=== PATIENT | male | born 1990 | race American Indian/Alaskan Native ===

== ENCOUNTER 2020-03-14 23:28 | Emergency (ER) | payer MEDICARE, MEDICAID, SELFPAY | END 2020-03-14 23:53 | disposition left against medical advice (07) | PROVIDERS: Emergency Provider Emergency Medicine; PCP Internal Medicine | DX: Z48.00 Encounter for change or removal of nonsurgical wound dressing (principal) ==

== ENCOUNTER 2023-01-21 11:11 | Outpatient (REF) | payer MEDICARE, BC, MEDICAID, SELFPAY ==
--- NOTE | ~2023-01-21 | US_ITS ---
EXAMINATION: US RETROPERITONEAL LIMITED (RENAL ONLY) CLINICAL INFORMATION: Chronic kidney disease, stage III. COMPARISON: Ultrasound abdomen 01/25/2019. TECHNIQUE: Real-time imaging of the kidneys. Limited visualization due to bowel gas. FINDINGS: RIGHT KIDNEY: 11.3 x 5.5 x 6.0 cm (SAG x AP x TRV). No hydronephrosis. No renal calculi. Renal cortical thickness is normal. Limited visualization. LEFT KIDNEY: 11.6 x 6.2 x 6.4 cm (SAG x AP x TRV). No hydronephrosis. No renal calculi. Limited visualization. US/US renal BI IMPRESSION: No hydronephrosis. No renal calculi. Limited visualization.
== END 2023-01-21 11:12 | disposition home or self-care (01) ==
LOC: HO.HMGCX 11:11
PROVIDERS: PCP Internal Medicine; Visit Provider Internal Medicine Nephrology
DX: N18.31 Chronic kidney disease, stage 3a (principal)
CPT/HCPCS: 76775

== ENCOUNTER 2023-04-26 10:23 | Outpatient (AMB) | payer MEDICARE, BC, MEDICAID, SELFPAY ==
--- NOTE | 2023-04-26 12:14 | MHC.OFFWIV ---
Intake Vital Signs 04/26/23 12:23 Height 6 ft 3 in Weight 229 lb BMI 28.6 BP 130/78 Blood Pressure Location Rt brachial Position Sitting Pulse 76 Pulse Source Pulse Oximeter Temp 97.6 F Temp Source Temporal Artery Scan Pulse Oximetry (%) 96 Oxygen Delivery Method Room Air Intake Visit Reasons: EST/sore throat(lobby masked/no car) Intake Note: pt is here for sore throat Patient Tobacco Use Status: Never used Tobacco Allergies banana [Banana] Allergy (Severe, Verified 04/26/23 12:55) ANAPHYLAXIS carbamazepine [From Tegretol] Allergy (Severe, Verified 04/26/23 12:55) SHORTNESS OF BREATH legumes Allergy (Severe, Verified 04/26/23 12:55) ANAPHYLAXIS nut - unspecified [nut] Allergy (Severe, Verified 04/26/23 12:55) ANAPHYLAXIS peanut [PEANUT] Allergy (Severe, Verified 04/26/23 12:55) ANAPHYLAXIS plum [[place]] Allergy (Severe, Verified 04/26/23 12:55) ANAPHYLAXIS tree nut [TREE NUT] Allergy (Severe, Verified 04/26/23 12:55) ANAPHYLAXIS pollen extracts [POLLEN] Allergy (Mild, Verified 04/26/23 12:55) RUNNY NOSE From Seroquel Allergy (Mild, Uncoded 04/26/23 12:55) UNKNOWN From Flonase Allergy (Unknown, Uncoded 04/26/23 12:55) SHORTNESS OF BREATH From Geodon Allergy (Unknown, Uncoded 04/26/23 12:55) SHORTNESS OF BREATH Do you need a note to return to daycare/school/sports/work: Yes HPI EST/sore throat(lobby masked/no car) HPI Details Patient presents for a sick visit. Reporting symptoms of sinus congestion, sore throat and difficulty swallowing. Low-grade fever. No family member is sick. No recent travel. Patient reports symptoms of malaise and fatigue. [facility] Patient Tobacco Use Status: Never used Tobacco Physical Exam Vital Signs: Last Vital Signs Temp 97.6 F 04/26/23 12:23 Pulse 76 04/26/23 12:23 BP 130/78 04/26/23 12:23 Pulse Ox 96 04/26/23 12:23 Oxygen Delivery Method Room Air 04/26/23 12:23 BMI result Body Mass Index 28.6 Const General: cooperative and healthy appearing Nutritional Appearance: well nourished Orientation/consciousness: patient oriented x3 Limitations: no limitations HEENT Other: Tongue: White coating. Head: Yes normal to inspection Eyes General: appearance normal, both eyes and all related structures Neck Neck: Yes normal visual inspection Chest Chest palpation & inspection: normal palpation of entire chest wall Resp Effort & Inspection: normal respiratory effort Neuro General: patient oriented x3 Assessment & Plan Assessment & Plan (1) Upper respiratory tract infection: Code(s): J06.9 - Acute upper respiratory infection, unspecified Plan: Antibiotics ordered. Increase fluid intake. Tylenol for aches and pains. If symptoms worsen, follow-up here for a recheck. Patient was advised to gargle after he uses the inhalers. Coding Level of Care Code Est Pt Level 3 (91675) Diagnoses Upper respiratory tract infection J06.9
[2023-04-26 12:23] VITALS: BP 130/78; PULSE 76; TEMP 36.4; O2SAT 96; BMI 28.6
== END 2023-04-26 13:00 | disposition home or self-care (01) ==
PROVIDERS: PCP Internal Medicine; Visit Provider Internal Medicine
DX: J06.9 Acute upper respiratory infection, unspecified (principal)
CPT/HCPCS: 99213

== ENCOUNTER 2023-10-05 08:25 | Outpatient (REF) | payer BC, MEDICARE, MEDICAID, SELFPAY ==
[2023-10-05 10:36] LABS: MANUAL DIFF FLAG NO
[2023-10-05 10:41] LABS: Appearance Urine Clear; Color Urine Yellow; Glucose Urine UA Negative (Negative); Leukocyte Esterase Urine Negative (Negative); Nitrite Urine Negative (Negative); PH 6.5 (5.0-9.0); Urine Blood Negative (Negative); Urine Ketones Negative (Negative); Urine Protein Negative (Neg-Trace)
[2023-10-05 10:46] LABS: Basophils Percent Auto 0.1 % (0-2); Eosinophils Absolute Auto 0.1 X10*3/uL (0.0-0.4); Eosinophils Percent Auto 1.8 % (0-4); Imm Gran Abs Auto 0.02 X10*3/uL (0.00-0.03); Imm Gran Pct Auto 0.3 % (0.0-0.4); Mean Corpuscular HGB Conc 34.1 g/dl (31.0-36.0); Mean Corpuscular Hemoglobin 34.9 pg (27.0-33.0); Mean Corpuscular Volume 102.3 fL (80.0-98.0); Mean Platelet Volume 9.6 fL (9.4-12.4); Monocytes Absolute Auto 0.5 X10*3/uL (0.1-1.2); Monocytes Percent Auto 7.3 % (2-11); Neutrophils Absolute Auto 4.1 x10*3/uL (2.0-8.3); Neutrophils Percent Auto 61.5 % (45-73); Platelet Count 202 X10*3/uL (160-400); White Blood Count 6.7 X10*3/uL (4.8-10.8)
[2023-10-05 11:34] LABS: Blood Urea Nitrogen 12 mg/dL (9-16); Estimated Glomerular Filt Rate 47
== END 2023-10-05 08:26 | disposition home or self-care (01) ==
LOC: HO.HMGCLDS 08:25
PROVIDERS: Visit Provider Psychiatry & Neurology Psychiatry
DX: N28.9 Disorder of kidney and ureter, unspecified (principal); F31.9 Bipolar disorder, unspecified
CPT/HCPCS: 36415; 81003; 82565; 84520; 85025

== ENCOUNTER 2023-11-23 08:54 | Outpatient (REF) | payer MEDICARE, BC, MEDICAID, SELFPAY ==
[2023-11-23 11:07] LABS: MANUAL DIFF FLAG NO
[2023-11-23 11:28] LABS: Basophils Percent Auto 0.2 % (0-2); Eosinophils Absolute Auto 0.1 X10*3/uL (0.0-0.4); Eosinophils Percent Auto 1.5 % (0-4); Hematocrit 41.9 % (42.0-52.0); Hemoglobin 14.2 g/dl (14.0-18.0); Imm Gran Abs Auto 0.04 X10*3/uL (0.00-0.03); Imm Gran Pct Auto 0.5 % (0.0-0.4); Lymphocytes Absolute Auto 2.1 X10*3/uL (1.2-4.9); Lymphocytes Percent Auto 26.2 % (20-40); Mean Corpuscular HGB Conc 33.9 g/dl (31.0-36.0); Mean Corpuscular Hemoglobin 35.4 pg (27.0-33.0); Mean Corpuscular Volume 104.5 fL (80.0-98.0); Mean Platelet Volume 9.8 fL (9.4-12.4); Monocytes Absolute Auto 0.5 X10*3/uL (0.1-1.2); Monocytes Percent Auto 5.8 % (2-11); Neutrophils Absolute Auto 5.4 x10*3/uL (2.0-8.3); Neutrophils Percent Auto 65.8 % (45-73); Platelet Count 181 X10*3/uL (160-400); Red Blood Count 4.01 X10*6/uL (4.60-5.80); Red Cell Distribution Width 11.9 % (11.0-16.0); White Blood Count 8.2 X10*3/uL (4.8-10.8)
[2023-11-23 11:39] LABS: Alanine Aminotransferase 13 U/L (0-40); Albumin Level 4.2 g/dL (3.5-5.0); Alkaline Phosphatase 91 U/L (39-117); Anion Gap 13 (12-20); Aspartate Amino Transferase 14 U/L (5-37); Bilirubin Total 0.3 mg/dL (0.0-1.0); Blood Urea Nitrogen 15 mg/dL (9-16); Calcium 9.4 mg/dL (8.4-10.2); Carbon Dioxide 27 mmol/L (22-29); Chloride 104 mmol/L (96-108); Cholesterol 135 mg/dL (<200); Estimated Glomerular Filt Rate 37; Glucose Random 90 mg/dL (60-115); HDL Cholesterol 34 mg/dL (>40); LDL Cholesterol Calculated 70 mg/dL (<100); Potassium 4.1 mmol/L (3.3-5.1); Sodium 140 mmol/L (135-145); Total Protein 7.4 g/dL (6.5-8.0); Triglycerides 155 mg/dL (<150)
[2023-11-23 11:59] LABS: HIV AB/AG Nonreactive (Nonreactive); HIV Num 1 0.05 S/CO (0.00-0.99); Syphilis Screen Nonreactive (Nonreactive); ~Hepatitis C Antibody Nonreactive (Nonreactive)
[2023-11-23 12:19] LABS: Uric Acid 6.1 mg/dL (3.4-7.0)
[2023-11-23 13:10] LABS: CT PCR NOT DETECTED (Not Detect.); NG PCR NOT DETECTED (Not Detect.)
== END 2023-11-23 08:55 | disposition home or self-care (01) ==
LOC: HO.HMGCLDS 08:54
PROVIDERS: PCP Internal Medicine; Visit Provider Internal Medicine
DX: Z00.00 Encounter for general adult medical examination without abnormal findings (principal)
CPT/HCPCS: 0353U; 80053; 80061; 84439; 84443; 84550; 85025; 86780; 86803; 87389

== ENCOUNTER 2023-11-24 08:57 | Outpatient (REF) | payer BC, MEDICARE, MEDICAID, SELFPAY ==
[2023-11-24 10:28] LABS: MANUAL DIFF FLAG NO
[2023-11-24 10:33] LABS: Basophils Percent Auto 0.3 % (0-2); Eosinophils Absolute Auto 0.2 X10*3/uL (0.0-0.4); Hematocrit 40.7 % (42.0-52.0); Hemoglobin 13.7 g/dl (14.0-18.0); Imm Gran Abs Auto 0.02 X10*3/uL (0.00-0.03); Imm Gran Pct Auto 0.3 % (0.0-0.4); Lymphocytes Absolute Auto 1.9 X10*3/uL (1.2-4.9); Lymphocytes Percent Auto 23.4 % (20-40); Mean Corpuscular HGB Conc 33.7 g/dl (31.0-36.0); Mean Corpuscular Hemoglobin 34.9 pg (27.0-33.0); Mean Corpuscular Volume 103.8 fL (80.0-98.0); Mean Platelet Volume 9.9 fL (9.4-12.4); Monocytes Absolute Auto 0.5 X10*3/uL (0.1-1.2); Monocytes Percent Auto 6.8 % (2-11); Neutrophils Absolute Auto 5.4 x10*3/uL (2.0-8.3); Neutrophils Percent Auto 67.2 % (45-73); Platelet Count 175 X10*3/uL (160-400); Red Blood Count 3.92 X10*6/uL (4.60-5.80); Red Cell Distribution Width 11.9 % (11.0-16.0)
[2023-11-24 11:35] LABS: Lithium 0.51 mmol/L (0.60-1.20)
[2023-11-24 11:39] LABS: Valproate 52.4 mcg/mL (50.0-100.0)
[2023-11-24 11:49] LABS: Alanine Aminotransferase 11 U/L (0-40); Albumin Level 3.9 g/dL (3.5-5.0); Alkaline Phosphatase 87 U/L (39-117); Anion Gap 13 (12-20); Aspartate Amino Transferase 13 U/L (5-37); Bilirubin Total 0.2 mg/dL (0.0-1.0); Blood Urea Nitrogen 17 mg/dL (9-16); Calcium 9.5 mg/dL (8.4-10.2); Carbon Dioxide 27 mmol/L (22-29); Chloride 105 mmol/L (96-108); Estimated Glomerular Filt Rate 42; Glucose Random 81 mg/dL (60-115); Potassium 4.1 mmol/L (3.3-5.1); Sodium 141 mmol/L (135-145); Total Protein 6.9 g/dL (6.5-8.0)
[2023-11-24 12:12] LABS: Free T4 (Free Thyroxine) 0.87 ng/dL (0.71-1.85); Thyroid Stimulating Hormone 1.29 uIU/mL (0.32-4.0)
== END 2023-11-24 08:58 | disposition home or self-care (01) ==
LOC: HO.HMGCLDS 08:57
PROVIDERS: PCP Internal Medicine; Visit Provider Psychiatry & Neurology Psychiatry
DX: F31.9 Bipolar disorder, unspecified (principal); Z79.899 Other long term (current) drug therapy
CPT/HCPCS: 36415; 80053; 80164; 80178; 84439; 84443; 85025

== ENCOUNTER 2024-02-10 08:41 | Outpatient (REF) | payer BC, MEDICARE, MEDICAID, SELFPAY ==
[2024-02-10 10:06] LABS: MANUAL DIFF FLAG NO
[2024-02-10 10:09] LABS: Basophils Percent Auto 0.2 % (0-2); Eosinophils Absolute Auto 0.2 X10*3/uL (0.0-0.4); Eosinophils Percent Auto 2.3 % (0-4); Hematocrit 44.1 % (42.0-52.0); Hemoglobin 14.8 g/dl (14.0-18.0); Imm Gran Abs Auto 0.02 X10*3/uL (0.00-0.03); Imm Gran Pct Auto 0.3 % (0.0-0.4); Lymphocytes Absolute Auto 2.4 X10*3/uL (1.2-4.9); Mean Corpuscular HGB Conc 33.6 g/dl (31.0-36.0); Mean Corpuscular Hemoglobin 34.7 pg (27.0-33.0); Mean Corpuscular Volume 103.5 fL (80.0-98.0); Mean Platelet Volume 9.7 fL (9.4-12.4); Monocytes Absolute Auto 0.4 X10*3/uL (0.1-1.2); Monocytes Percent Auto 6.1 % (2-11); Neutrophils Absolute Auto 3.6 x10*3/uL (2.0-8.3); Neutrophils Percent Auto 55.1 % (45-73); Platelet Count 173 X10*3/uL (160-400); Red Blood Count 4.26 X10*6/uL (4.60-5.80); Red Cell Distribution Width 11.7 % (11.0-16.0); White Blood Count 6.5 X10*3/uL (4.8-10.8)
[2024-02-10 10:39] LABS: Alanine Aminotransferase 19 U/L (0-40); Albumin Level 4.4 g/dL (3.5-5.0); Alkaline Phosphatase 88 U/L (39-117); Anion Gap 12 (12-20); Aspartate Amino Transferase 17 U/L (5-37); Bilirubin Total 0.3 mg/dL (0.0-1.0); Blood Urea Nitrogen 15 mg/dL (9-16); Carbon Dioxide 26 mmol/L (22-29); Chloride 108 mmol/L (96-108); Cholesterol 136 mg/dL (<200); Estimated Glomerular Filt Rate 37; Glucose Random 93 mg/dL (60-115); HDL Cholesterol 32 mg/dL (>40); LDL Cholesterol Calculated 66 mg/dL (<100); Potassium 4.6 mmol/L (3.3-5.1); Sodium 141 mmol/L (135-145); Total Protein 7.4 g/dL (6.5-8.0); Triglycerides 191 mg/dL (<150)
[2024-02-10 10:46] LABS: Estimated Average Glucose 85 mg/dL; Hemoglobin A1c % 4.6 % (<6.0)
[2024-02-10 10:54] LABS: Lithium 0.58 mmol/L (0.60-1.20)
[2024-02-10 10:59] LABS: Valproate 43.4 mcg/mL (50.0-100.0)
[2024-02-10 11:19] LABS: Vitamin B12 498 pg/mL (200-900)
== END 2024-02-10 08:42 | disposition home or self-care (01) ==
LOC: HO.HMGCLDS 08:41
PROVIDERS: PCP Internal Medicine; Visit Provider Psychiatry & Neurology Psychiatry
DX: F31.60 Bipolar disorder, current episode mixed, unspecified (principal); Z79.899 Other long term (current) drug therapy
CPT/HCPCS: 36415; 80053; 80061; 80164; 80178; 82607; 83036; 85025

== ENCOUNTER 2024-02-20 08:38 | Outpatient (REF) | payer BC, MEDICARE, MEDICAID, SELFPAY ==
[2024-02-20 10:51] LABS: Anion Gap 12 (12-20); Blood Urea Nitrogen 17 mg/dL (9-16); Calcium 10.1 mg/dL (8.4-10.2); Carbon Dioxide 28 mmol/L (22-29); Chloride 107 mmol/L (96-108); Estimated Glomerular Filt Rate 36; Glucose Random 100 mg/dL (60-115); Potassium 4.7 mmol/L (3.3-5.1); Sodium 142 mmol/L (135-145)
[2024-02-20 13:09] LABS: Lithium 0.58 mmol/L (0.60-1.20)
[2024-02-20 13:14] LABS: Valproate 47.7 mcg/mL (50.0-100.0)
== END 2024-02-20 08:39 | disposition home or self-care (01) ==
LOC: HO.HMGCLDS 08:38
PROVIDERS: PCP Internal Medicine; Visit Provider Psychiatry & Neurology Psychiatry
DX: F31.9 Bipolar disorder, unspecified (principal); Z79.899 Other long term (current) drug therapy
CPT/HCPCS: 36415; 80048; 80164; 80178

== ENCOUNTER 2024-04-20 12:00 | Outpatient (REF) | payer BC, MEDICARE, MEDICAID, SELFPAY ==
[2024-04-20 13:04] LABS: MANUAL DIFF FLAG NO
[2024-04-20 13:09] LABS: Basophils Percent Auto 0.3 % (0-2); Eosinophils Absolute Auto 0.1 X10*3/uL (0.0-0.4); Eosinophils Percent Auto 1.5 % (0-4); Hemoglobin 13.8 g/dl (14.0-18.0); Imm Gran Abs Auto 0.03 X10*3/uL (0.00-0.03); Imm Gran Pct Auto 0.4 % (0.0-0.4); Lymphocytes Absolute Auto 2.1 X10*3/uL (1.2-4.9); Lymphocytes Percent Auto 26.8 % (20-40); Mean Corpuscular HGB Conc 33.7 g/dl (31.0-36.0); Mean Corpuscular Volume 104.1 fL (80.0-98.0); Mean Platelet Volume 9.9 fL (9.4-12.4); Monocytes Absolute Auto 0.5 X10*3/uL (0.1-1.2); Monocytes Percent Auto 6.7 % (2-11); Neutrophils Percent Auto 64.3 % (45-73); Platelet Count 157 X10*3/uL (160-400); Red Blood Count 3.94 X10*6/uL (4.60-5.80); Red Cell Distribution Width 11.8 % (11.0-16.0); White Blood Count 7.8 X10*3/uL (4.8-10.8)
[2024-04-20 13:48] LABS: Estimated Average Glucose 88 mg/dL; Hemoglobin A1C 106.6779 umol/L; Hemoglobin A1c % 4.7 % (<6.0); Total Hemoglobin (HGBA1C) 3861.0572 umol/L
[2024-04-20 13:59] LABS: Alanine Aminotransferase 27 U/L (0-40); Albumin Level 3.9 g/dL (3.5-5.0); Alkaline Phosphatase 73 U/L (39-117); Anion Gap 10 (12-20); Aspartate Amino Transferase 21 U/L (5-37); Bilirubin Total 0.2 mg/dL (0.0-1.0); Blood Urea Nitrogen 17 mg/dL (9-16); Carbon Dioxide 30 mmol/L (22-29); Chloride 104 mmol/L (96-108); Estimated Glomerular Filt Rate 41; Glucose Random 98 mg/dL (60-115); Potassium 4.2 mmol/L (3.3-5.1); Sodium 140 mmol/L (135-145); Thyroid Stimulating Hormone 0.72 uIU/mL (0.32-4.0); Total Protein 6.5 g/dL (6.5-8.0)
== END 2024-04-20 12:01 | disposition home or self-care (01) ==
LOC: HO.HMGCLDS 12:00
PROVIDERS: PCP Internal Medicine; Visit Provider Internal Medicine
DX: R00.2 Palpitations (principal); Z13.1 Encounter for screening for diabetes mellitus
CPT/HCPCS: 36415; 80053; 83036; 84443; 85025

== ENCOUNTER 2024-05-01 13:48 | Emergency (ER) | payer BC, MEDICARE, MEDICAID, SELFPAY ==
--- NOTE | 2024-05-01 | ECG_ITS ---
Test Reason : PALPATATIONS Blood Pressure : / mmHG Vent. Rate : 089 BPM Atrial Rate : 089 BPM P-R Int : 178 ms QRS Dur : 092 ms QT Int : 372 ms P-R-T Axes : 062 037 050 degrees QTc Int : 452 ms Normal sinus rhythm Nonspecific ST abnormality Abnormal ECG When compared with ECG of 24-JAN-2019 20:02, Non-specific change in ST segment in Inferior leads ST elevation now present in Lateral leads Referred By: Silvana Lester Electronically Signed By:BEENA RODRIGUEZ
--- NOTE | ~2024-05-01 | CT_ITS ---
EXAMINATION: CT SOFT TISSUE NECK WITHOUT CONTRAST CLINICAL INFORMATION: History swelling, rule out Abiodun's angina COMPARISON: None available. TECHNIQUE: Helical imaging was performed in the axial plane with generation of coronal and sagittal reformatted images. This CT examination was performed using dose optimization techniques as appropriate, variously including the following: *Automated exposure control *Adjustment of mA and/or kV according to patient size (this includes techniques or standardized protocols for targeted exams where dose is matched to indication/reason for exam; i.e. extremities or head) *Use of iterative reconstruction technique DLP: 562.47 mGy-cm FINDINGS: There is extensive edema and fat stranding in the submandibular and submental spaces bilaterally and surrounding the submandibular glands. The inflammatory changes extend to the platysma muscles bilaterally and into the subcutaneous fat. There is resultant thickening of the platysma muscles. There is also mild thickening of the digastric muscle anterior bellies, left greater than right. There is also mild prominence of the submandibular glands. There is no discrete drainable fluid collection. There are prominent level Ia lymph nodes measure up to 1.5 cm in short axis. There is prominence of the adenoid tissues partially effacing the nasopharynx. Otherwise, the oropharynx, hypopharynx, and laryngeal structures are unremarkable. The parotid and thyroid glands are unremarkable. The visualized orbits are unremarkable. Mucous retention cysts in the bilateral maxillary sinuses. The mastoid air cells are clear. The imaged portions of the brain are unremarkable. No acute osseous abnormality. No lytic or blastic osseous lesions. The visualized lungs are clear. CT/CT soft tissue neck wo IV con IMPRESSION: 1. Extensive edema and fat stranding in the submandibular and submental spaces bilaterally and surrounding the submandibular glands, extending into the now thickened platysma muscles. No discrete drainable fluid collection. Findings may represent Abiodun's angina and appropriate clinical setting. 2. Reactive level Ia lymph nodes. Electronically signed by: Saúl Feng MD 05/01/2024 05:30 PM [facility] [place] [place]
[2024-05-01 14:15] VITALS: BP 126/87; PULSE 99; RESP 18; TEMP 37; O2SAT 98; BMI 27.3
--- NOTE | 2024-05-01 14:16 | ED_ITS ---
HPI - General Adult General Chief complaint: Skin/Abscess/Foreign Body Stated complaint: Abscess in mouth Time Seen by Provider: 05/01/24 14:37 Source: patient and family (dad/ legal guardian) Mode of arrival: ambulatory Limitations: no limitations History of Present Illness ED Provider: MARY DIAZ PA-C HPI narrative: 33 year old male with past medical history significant for asthma presents to the ED today for evaluation of jaw/neck pain/swelling x 24 hours. His father is at bedside who is patient's legal guardian. Patient's father states that he noticed swelling to patient's anterior neck yesterday which significantly worsened today. He states the swelling was about 1/4 the size yesterday that it is today. His father initially just thought it was an ingrown [place] hair. Patient endorses pain on swallowing. His father also states that patient was recently seen by a dentist and noted to have multiple dental caries. Root canal and fillings were recommended however patient has not yet received these. Denies any drainage from the area. Patient was evaluated at urgent care today, sent to the ED for further evaluation due to concern for Abiodun's angina. Denies fever, chills, nausea or vomiting. Related Data Previous Rx's ?Medication ?Instructions ?Recorded azithromycin 250 mg tablet 250 mg PO ONCE 1 day #4 tabs 04/26/23 (Zithromax) Allergies Allergy/AdvReac Type Severity Reaction Status Date / Time banana [Banana] Allergy Severe ANAPHYLAXIS Verified 05/01/24 14:17 carbamazepine [From Tegretol] Allergy Severe SHORTNESS Verified 05/01/24 14:17 OF BREATH legumes Allergy Severe ANAPHYLAXIS Verified 05/01/24 14:17 nut - unspecified [nut] Allergy Severe ANAPHYLAXIS Verified 05/01/24 14:17 peanut [PEANUT] Allergy Severe ANAPHYLAXIS Verified 05/01/24 14:17 plum [[place]] Allergy Severe ANAPHYLAXIS Verified 05/01/24 14:17 tree nut [TREE NUT] Allergy Severe ANAPHYLAXIS Verified 05/01/24 14:17 pollen extracts [POLLEN] Allergy Mild RUNNY NOSE Verified 05/01/24 14:17 From Seroquel Allergy Mild UNKNOWN Uncoded 05/01/24 14:17 From Flonase Allergy Unknown SHORTNESS Uncoded 05/01/24 14:17 OF BREATH From Geodon Allergy Unknown SHORTNESS Uncoded 05/01/24 14:17 OF BREATH Review of Systems 2 Review of Systems: Constitutional: No fever, chills, fatigue, night sweats, weight changes ENT/Mouth: No ear pain, hearing loss, nasal congestion, sinus pain, rhinorrhea, sore throat, +odynophagia, +neck/jaw swelling Eyes: No eye pain, swelling, redness, vision changes, discharge Cardio: No chest pain, palpitations, FLETCHER, orthopnea, peripheral edema Pulm: No SOB, cough, sputum, wheezing, dyspnea, hemoptysis GI: No nausea, vomiting, hematemesis, abdominal pain, diarrhea, constipation, hematochezia, melena : No irregular bleeding, dysuria, frequency, urgency, hesitancy, hematuria, flank pain, urinary flow changes, urinary incontinence or retention MSK: No back pain, neck pain, joint pain, myalgias Skin: No lesions, rashes Neuro: No weakness, numbness, paresthesias, LOC, dizziness, headache Psych: No anxiety/panic, depression, SI/HI, AH/VH All other systems reviewed and are negative. [facility] Past Medical History Attestation statement: The following information was validated with the patient. Source: old records reviewed and nursing notes reviewed Social History Social History Patient Tobacco Use Status: Never used Tobacco Smoked in Last 30 Days: No Use of substances other than those prescribed or required for medical reasons: No Advance Directives: Yes Advance Directives Information Provided: Yes Advance Directives on File: No Physical Exam ED Vital Signs: Vital Signs - 24 hr 05/01/24 14:15 05/01/24 16:50 05/01/24 18:29 Temperature 98.6 F 98.3 F 98.1 F Pulse Rate 99 94 87 Respiratory Rate 18 16 16 Blood Pressure 126/87 136/78 128/72 Pulse Oximetry 98 94 94 Oxygen Delivery Method Room Air Room Air Room Air BMI result Body Mass Index 27.3 vital signs stable. afebrile. General: Well appearing, in no acute distress. Skin: Warm, dry, intact. No rashes or lesions. Head: Normocephalic, atraumatic. EENT: Hearing is intact b/l. Conjunctiva clear. PERRLA. EOM intact. Moist mucous membranes. Posterior oropharynx without erythema or edema. No tonsillar exudates. Uvula midline. Controlling secretions and speaking in complete sentences. Neck: + see photo. noted swelling to submandibular/ submental region. ttp. no palpable LAD. Cardiac: Chest wall symmetric. RRR. Lungs: airway patent. Normal respiratory effort without accessory muscle use. CTA bilaterally Back: No midline spinous or paraspinal tenderness. No step off deformity. Ext: Upper and lower extremities atraumatic, without tenderness, deformity, swelling or erythema. Full ROM throughout. Neuro: AOx3. Normal speech. Ambulating with steady gait. Psych: Appropriate mood and affect. Responds appropriately to questions. Course Course Course Narrative: This is a rapid medical exam performed by Bib Bertrand NP: Additional HPI, ROS, PE not included below will be deferred to primary provider. Patient is a 33-year-old male with history of asthma presenting to ED with father who is also legal guardian from urgent care with complaint of submandibular swelling since yesterday to r/o Abiodun's angina. Father reports swelling is significantly worse today. Denies fevers. Patient denies any drainage. Plan: labs, will need CT Reevaluation(s) Reevaluation #1: 1494 -- CBC with leukocytosis to 12.1 without left shift. No anemia. H&H stable. Chemistry without acute electrolyte abnormality requiring intervention. Acute on chronic kidney injury. BUN 22 and creatinine 2.39. This does not appear to be around patient's baseline however his father endorses chronic kidney disease from year's worth of lithium use. He is being monitored for this. 1L IVF ordered. Lactic WNL at 2. ESR WNL. CRP elevated. Blood cultures pending. He tested negative for strep throat and mono. CT soft tissue neck showing extensive edema and fat stranding in the submandibular and submental spaces bilaterally and surrounding the submandibular glands extending into the now thickened platysma muscles. There is no discrete drainable fluid collection. Concern for Abiodun's angina. There are also reactive level 1A lymph nodes. > patient has received dexamethasone, clindamycin and IV Tylenol. He is also received 1 L of IV fluids. > I reached out to ENT at [facility] who reports concern that this may be originating from patient's dentition. They do not currently have oral surgery coverage for the night and are recommending that we reach out to another facility who has coverage. > I spoke with Malini from [facility] transfer line who has accepted patient as ED to ED transfer with the accepting physician Dr. Vazquez. Patient and his father are agreeable with transfer. He is stable at this time. Medications Administered Discontinued Medications Generic Name Dose Route Start Last Admin Trade Name Freq PRN Reason Stop Dose Admin Dexamethasone Sodium Phosphate 10 mg 05/01/24 17:44 05/01/24 17:48 Dexamethasone Sod Phosphate 10 Mg/Ml Vial IVPUSH 05/01/24 17:45 10 mg ONCE ONE Administration Clindamycin Phosphate 600 mg in 50 mls @ 100 mls/hr 05/01/24 15:42 05/01/24 17:32 Cleocin IV 05/01/24 16:11 Infused ONCE ONE Infusion Acetaminophen 1,000 mg in 100 mls @ 400 mls/hr 05/01/24 15:43 05/01/24 16:13 Ofirmev IV 05/01/24 15:57 Infused ONCE ONE Infusion Sodium Chloride 1,000 mls @ 999 mls/hr 05/01/24 17:00 05/01/24 18:13 Ns IV 05/01/24 18:00 Infused .Q1H1M ROMERO Infusion Medical Decision Making Medical Decision Making MDM Narrative: 33 year old male with past medical history significant for asthma presents to the ED today for evaluation of jaw/neck pain/swelling x 24 hours. Vital signs stable. Afebrile. Not tachycardic. Not hypoxic. On exam, moist mucous membranes. multiple dental carries and poor dentition. no identifiable abscess. Posterior oropharynx without erythema or edema. No tonsillar exudates. Uvula midline. Controlling secretions and speaking in complete sentences. noted swelling to submandibular/ submental region. ttp. no palpable LAD. Airway patent. No respiratory distress. Lungs clear. 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 Differential Diagnosis Differential Diagnoses: The differential diagnosis associated with the presentation includes as above. Admission/Observation Consideration of admission/observation: Escalation of care including admission/observation considered Patient will be transferred to acute care hospital ([facility]) for ENT coverage and IV antibiotics. Consult Healthcare Provider Management of the patient was discussed with: Computer Tester ([facility] ENT / [facility] ENT) Lab Data MDM Lab Attestation statement: I reviewed the patient's lab results. as above. 05/01/24 14:42 05/01/24 14:43 Labs: Lab Results 05/01/24 05/01/24 05/01/24 Range/Units 14:42 14:43 14:44 WBC 12.1 H (4.8-10.8) X10*3/uL RBC 4.61 (4.60-5.80) X10*6/uL Hgb 16.4 (14.0-18.0) g/dl Hct 46.5 (42.0-52.0) % MCV 100.9 H (80.0-98.0) fL MCH 35.6 H (27.0-33.0) pg MCHC 35.3 (31.0-36.0) g/dl RDW 11.7 (11.0-16.0) % Plt Count 183 (160-400) X10*3/uL MPV 9.7 (9.4-12.4) fL Immature Gran % (Auto) 0.5 H (0.0-0.4) % Neut % (Auto) 73.9 H (45-73) % Lymph % (Auto) 14.4 L (20-40) % [place] % (Auto) 10.6 (2-11) % Eos % (Auto) 0.4 (0-4) % Baso % (Auto) 0.2 (0-2) % Lymph # (Auto) 1.7 (1.2-4.9) X10*3/uL [place] # (Auto) 1.3 H (0.1-1.2) X10*3/uL Eos # (Auto) 0.1 (0.0-0.4) X10*3/uL Baso # (Auto) 0.0 (0.0-0.2) X10*3/uL Abs Immat Gran (auto) 0.06 H (0.00-0.03) X10*3/uL Absolute Neuts (auto) 9.0 H (2.0-8.3) x10*3/uL Absolute Nucleated RBC 0.000 (0.0-0.012) X10*3/uL Nucleated RBC % (auto) 0.0 (0.0-0.2) /100WBC ESR 11 (0-15) MM/HR Sodium 136 (135-145) mmol/L Potassium 4.5 (3.3-5.1) mmol/L Chloride 102 (96-108) mmol/L Carbon Dioxide 24 (22-29) mmol/L Anion Gap 15 (12-20) BUN 22 H (9-16) mg/dL Creatinine 2.39 H (0.5-1.4) mg/dL Estim Creat Clear Calc 52.0 Estimated GFR 31 Random Glucose 101 (60-115) mg/dL Lactic Acid (0.5-2.0) mmol/L Calcium 10.1 D (8.4-10.2) mg/dL Total Bilirubin 0.5 (0.0-1.0) mg/dL AST 22 (5-37) U/L ALT 22 (0-40) U/L Alkaline Phosphatase 94 (39-117) U/L C-Reactive Protein 3.49 H (< or = 0.50) mg/dL Total Protein 7.9 (6.5-8.0) g/dL Albumin 4.6 (3.5-5.0) g/dL Monoscreen Negative (Negative) S. pyogenes GrpA JAMES Negative (Negative) 05/01/24 Range/Units 16:11 WBC (4.8-10.8) X10*3/uL RBC (4.60-5.80) X10*6/uL Hgb (14.0-18.0) g/dl Hct (42.0-52.0) % MCV (80.0-98.0) fL MCH (27.0-33.0) pg MCHC (31.0-36.0) g/dl RDW (11.0-16.0) % Plt Count (160-400) X10*3/uL MPV (9.4-12.4) fL Immature Gran % (Auto) (0.0-0.4) % Neut % (Auto) (45-73) % Lymph % (Auto) (20-40) % [place] % (Auto) (2-11) % Eos % (Auto) (0-4) % Baso % (Auto) (0-2) % Lymph # (Auto) (1.2-4.9) X10*3/uL [place] # (Auto) (0.1-1.2) X10*3/uL Eos # (Auto) (0.0-0.4) X10*3/uL Baso # (Auto) (0.0-0.2) X10*3/uL Abs Immat Gran (auto) (0.00-0.03) X10*3/uL Absolute Neuts (auto) (2.0-8.3) x10*3/uL Absolute Nucleated RBC (0.0-0.012) X10*3/uL Nucleated RBC % (auto) (0.0-0.2) /100WBC ESR (0-15) MM/HR Sodium (135-145) mmol/L Potassium (3.3-5.1) mmol/L Chloride (96-108) mmol/L Carbon Dioxide (22-29) mmol/L Anion Gap (12-20) BUN (9-16) mg/dL Creatinine (0.5-1.4) mg/dL Estim Creat Clear Calc Estimated GFR Random Glucose (60-115) mg/dL Lactic Acid 2.0 (0.5-2.0) mmol/L Calcium (8.4-10.2) mg/dL Total Bilirubin (0.0-1.0) mg/dL AST (5-37) U/L ALT (0-40) U/L Alkaline Phosphatase (39-117) U/L C-Reactive Protein (< or = 0.50) mg/dL Total Protein (6.5-8.0) g/dL Albumin (3.5-5.0) g/dL Monoscreen (Negative) S. pyogenes GrpA JAMES (Negative) Independent Interpretation I performed an independent interpretation of an: CT Scan Interpretation: CT soft tissue neck showing edema and fat stranding who submandibular and submental space, no fluid collection. Radiology Impression Discussion of test interpretation with radiology: I have reviewed the radiologist's reading. Radiologist Impression: EXAMINATION: CT SOFT TISSUE NECK WITHOUT CONTRAST CLINICAL INFORMATION: History swelling, rule out Abiodun's angina COMPARISON: None available. TECHNIQUE: Helical imaging was performed in the axial plane with generation of coronal and sagittal reformatted images. This CT examination was performed using dose optimization techniques as appropriate, variously including the following: *Automated exposure control *Adjustment of mA and/or kV according to patient size (this includes techniques or standardized protocols for targeted exams where dose is matched to indication/reason for exam; i.e. extremities or head) *Use of iterative reconstruction technique DLP: 562.47 mGy-cm FINDINGS: There is extensive edema and fat stranding in the submandibular and submental spaces bilaterally and surrounding the submandibular glands. The inflammatory changes extend to the platysma muscles bilaterally and into the subcutaneous fat. There is resultant thickening of the platysma muscles. There is also mild thickening of the digastric muscle anterior bellies, left greater than right. There is also mild prominence of the submandibular glands. There is no discrete drainable fluid collection. There are prominent level Ia lymph nodes measure up to 1.5 cm in short axis. There is prominence of the adenoid tissues partially effacing the nasopharynx. Otherwise, the oropharynx, hypopharynx, and laryngeal structures are unremarkable. The parotid and thyroid glands are unremarkable. The visualized orbits are unremarkable. Mucous retention cysts in the bilateral maxillary sinuses. The mastoid air cells are clear. The imaged portions of the brain are unremarkable. No acute osseous abnormality. No lytic or blastic osseous lesions. The visualized lungs are clear. CT/CT soft tissue neck wo IV con IMPRESSION: 1. Extensive edema and fat stranding in the submandibular and submental spaces bilaterally and surrounding the submandibular glands, extending into the now thickened platysma muscles. No discrete drainable fluid collection. Findings may represent Abiodun's angina and appropriate clinical setting. 2. Reactive level Ia lymph nodes. Electronically signed by: Saúl Feng MD 05/01/2024 05:30 PM [facility] Independent Historian Clinical information obtained from an independent historian. History obtained from or confirmed by: Parent (dad) External Record Review External record reviewed: Inpatient record Prescription Management I considered prescription management with: Pain Medication and Antibiotic Social Determinants Patient?s care significantly limited by Social Determinants of Health including: Other Social Determinant of Health Critical Care Time Critical Care Time Critical Care Time: Yes Total Critical Care Time: 50 Attestation: Critical care time in the amount of 50 minutes has been provided to the patient in terms of direct patient care, frequent reevaluation, consultation with ENT, review and interpretation of medical data and results, and management of potentially life-threatening conditions. This is all outside of any medical procedures. Discharge Plan Discharge Clinical Impression: Abiodun's angina, Acute kidney injury superimposed on chronic kidney disease, Leukocytosis Patient Disposition: [facility] Transfer Details: [facility] ED - Accepting Dr. Vazquez Prescriptions: No Action azithromycin [Zithromax] 250 mg tablet 250 mg PO ONCE 1 Days Qty: 4 0RF Print Language: Fijian
[2024-05-01 14:49] LABS: MANUAL DIFF FLAG NO
[2024-05-01 15:02] LABS: Basophils Percent Auto 0.2 % (0-2); Eosinophils Absolute Auto 0.1 X10*3/uL (0.0-0.4); Eosinophils Percent Auto 0.4 % (0-4); Hematocrit 46.5 % (42.0-52.0); Hemoglobin 16.4 g/dl (14.0-18.0); Imm Gran Abs Auto 0.06 X10*3/uL (0.00-0.03); Imm Gran Pct Auto 0.5 % (0.0-0.4); Lymphocytes Absolute Auto 1.7 X10*3/uL (1.2-4.9); Lymphocytes Percent Auto 14.4 % (20-40); Mean Corpuscular HGB Conc 35.3 g/dl (31.0-36.0); Mean Corpuscular Hemoglobin 35.6 pg (27.0-33.0); Mean Corpuscular Volume 100.9 fL (80.0-98.0); Mean Platelet Volume 9.7 fL (9.4-12.4); Monocytes Absolute Auto 1.3 X10*3/uL (0.1-1.2); Monocytes Percent Auto 10.6 % (2-11); Neutrophils Percent Auto 73.9 % (45-73); Platelet Count 183 X10*3/uL (160-400); Red Blood Count 4.61 X10*6/uL (4.60-5.80); Red Cell Distribution Width 11.7 % (11.0-16.0); White Blood Count 12.1 X10*3/uL (4.8-10.8)
[2024-05-01 15:08] LABS: C Reactive Protein 3.49 mg/dL (< or = 0.50)
[2024-05-01 15:12] LABS: IDNOW Serial# 08D9AD1C; Strep A Nucleic Acid Negative (Negative)
[2024-05-01 15:13] LABS: Alanine Aminotransferase 22 U/L (0-40); Albumin Level 4.6 g/dL (3.5-5.0); Alkaline Phosphatase 94 U/L (39-117); Anion Gap 15 (12-20); Aspartate Amino Transferase 22 U/L (5-37); Bilirubin Total 0.5 mg/dL (0.0-1.0); Blood Urea Nitrogen 22 mg/dL (9-16); Calcium 10.1 mg/dL (8.4-10.2); Carbon Dioxide 24 mmol/L (22-29); Chloride 102 mmol/L (96-108); Estimated Glomerular Filt Rate 31; Glucose Random 101 mg/dL (60-115); Potassium 4.5 mmol/L (3.3-5.1); Sodium 136 mmol/L (135-145); Total Protein 7.9 g/dL (6.5-8.0)
[2024-05-01 15:16] LABS: Monotest Negative (Negative)
[2024-05-01 15:41] LABS: Erythrocyte Sedimentation Rate 11 MM/HR (0-15)
[2024-05-01] MEDS: Acetaminophen 1,000 MG/100 ML PIGGYBACK 400 MG IV (15:58)
[2024-05-01 16:50] VITALS: BP 136/78; PULSE 94; RESP 16; TEMP 36.8; O2SAT 94
[2024-05-01] MEDS: Clindamycin Phosphate/D5W 600 MG/50 ML PIGGYBACK 100 MG IV (17:02)
[2024-05-01] MEDS: 0.9 % Sodium Chloride 1,000 ML 999 ML IV (17:02)
[2024-05-01] MEDS: dexAMETHasone sod phosphate 10 MG/ML VIAL IVPUSH (17:48)
[2024-05-01 18:29] VITALS: BP 128/72; PULSE 87; RESP 16; TEMP 36.7; O2SAT 94
--- NOTE | 2024-05-01 18:29 | PC.NURSE ---
pt accepted by [facility]- awaiting transport
--- NOTE | 2024-05-01 19:35 | PC.NURSE ---
nurse to nurse report to MARCUS Escobar at [facility]. pt transported via [facility]
[2024-05-01 21:02] VITALS: BP 128/72; PULSE 87; RESP 16; TEMP 36.7; O2SAT 94
== END 2024-05-01 21:02 | disposition short-term general hospital (02) ==
PROVIDERS: Physician Assistant Medical; Registered Nurse Emergency; Emergency Provider Emergency Medicine; PCP Internal Medicine
DX: K12.2 Cellulitis and abscess of mouth (principal); N18.9 Chronic kidney disease, unspecified; D72.829 Elevated white blood cell count, unspecified; R11.0 Nausea; R22.1 Localized swelling, mass and lump, neck; R00.2 Palpitations; J45.909 Unspecified asthma, uncomplicated; K02.9 Dental caries, unspecified; M54.2 Cervicalgia; Z79.899 Other long term (current) drug therapy
CPT/HCPCS: 36415; 70490; 80053; 83605; 85025; 85652; 86140; 86308; 87040; 87651; 93005; 96361; 96365; 96375; 99285; J0131; J0736; J1100

== ENCOUNTER → 2024-05-01 16:33 | Outpatient (BNV) | payer BC, MEDICARE, MEDICAID, SELFPAY | PROVIDERS: Emergency Provider Emergency Medicine; PCP Internal Medicine; Visit Provider Internal Medicine | DX: R00.2 Palpitations (principal); R94.31 Abnormal electrocardiogram [ECG] [EKG] | CPT/HCPCS: 93010 ==

== ENCOUNTER 2024-06-26 08:59 | Outpatient (REF) | payer BC, MEDICARE, MEDICAID, SELFPAY ==
--- OUTSIDE RECORDS SUMMARY | 2024-06-26 09:25 | XMS_ITS ---
Author Name [facility] Organization Unknown Results Test Name/Text Value Interpretation Date Range Source HIV1 RNA num SerPl PCR Normal [id number] - 30 [facility] HIV1 RNA Plas PCR-Lognum Normal [id number] - 1.46 [facility] Interpretation Normal [id number] HH CCT CD3+CD4+ Cells NFr Bld 43% Normal [id number] 34 - 58 [facility] CD3+CD4+ Cells num Bld 857cells/cumm Normal [id number] 535 - 1451 H[facility]CT Creat Ur-mCnc 56mg/dL Normal [id number] H[facility] CT Sodium Ur-sCnc 42mmol/L Normal [id number] HH CCT [place] SerPl-sCnc 0.5mmol/L Below low normal [id number] 0 .6 - 1.2 [facility] Chloride SerPl-sCnc 105mmol/L Normal [id number] 98 - 10 7 [facility] Glucose SerPl-mCnc 85mg/dL Normal [id number] 65 - 99 [facility]CT GFR/BSA.pred SerPlBld PEU-LRV-AgUXya 42 Below low normal [id number] 59 - HHCCT Creat SerPl-mCnc 2.1mg/dL Above high normal [id number] 0. 5 - 1.3 [facility] BUN/Creat SerPl 12Ratio Normal [id number] 10 - 25 H [facility]CT Anion Gap Bld-sCnc 10 Normal [id number] 7 - 17 [facility]CT Calcium SerPl-mCnc 9.3mg/dL Normal [id number] 8.7 - 10 .5 H[facility]CT CO2 SerPl-sCnc 22mmol/L Normal 22 - 33 HH CCT BUN SerPl-mCnc 25mg/dL Above high normal [id number] 8 - 21 [facility]CT Sodium SerPl-sCnc 137mmol/L Normal [id number] 136 - 145 [facility]CT Potassium SerPl-sCnc 4.8mmol/L Normal [id number] 3.4 - 5.3 [facility] Imm Granulocytes/leuk NFr Bld Auto 0.3% Normal [id number] H[facility]CT Lymphocytes/leuk NFr Bld Auto 16.1% Normal [id number] H[facility]CT PMV Bld Auto 10.1fL Normal [id number] 7.5 - 12.[address] Monocytes num Bld Auto 0.89Thou/uL Normal [id number] 0. 2 - 1.5 [facility] Hct VFr Bld Auto 38% Below low normal [id number] 39 - 54 [facility] Neutrophils num Bld Auto 7.05Thou/uL Normal [id number] 2 - 7.5 [facility] Neutrophils/leuk NFr Bld Auto 74.1% Normal [id number] H[facility]CT Basophils/leuk NFr Bld Auto 0.1% Normal [id number] H[facility]CT Basophils num Bld Auto 0.01Thou/uL Normal [id number] 0 - 0.2 [facility]CT Monocytes/leuk NFr Bld Auto 9.3% Normal [id number] H[facility]CT Eosinophil num Bld Auto 0.01Thou/uL Normal [id number] 0 - 0.7 H[facility]CT MCH RBC Qn Auto 35.1pg Above high normal [id number] 26 - 34 [facility]CT Eosinophil/leuk NFr Bld Auto 0.1% Normal [id number] H[facility]CT Imm Granulocytes num Bld Auto 0.03Thou/uL Normal [id number] 0 - 0.1 H[facility]CT RDW RBC Auto-Rto 11.7% Normal [id number] 11.5 - 14. 5 [facility] Platelet num Bld Auto 143Thou/uL Below low normal [id number] 150 - 450 H[facility]CT MCHC RBC Auto-mCnc 33.4g/dL Normal [id number] 30 - 36 [facility]CT MCV RBC Auto 105fL Above high normal [id number] 80 - 1 00 H[facility]CT WBC num Bld Auto 9.5Thou/uL Normal [id number] 4 - 11 [facility] RBC num Bld Auto 3.62Mil/uL Below low normal [id number] 4. 5 - 6.2 H[facility]CT Hgb Bld-mCnc 12.7g/dL Below low normal 13 - 17 .7 H[facility]CT Lymphocytes num Bld Auto 1.53Thou/uL Normal 1.5 - 4.5 HHCCT Lactate SerPl-sCnc 1.1mmol/L Normal 0.5 - 1. 9 [facility]CT Globulin Ser Calc-mCnc 3.3g/dL Normal 1.5 - 3.9 HHCCT ALT SerPl-cCnc 18U/L Normal 10 - 55 HH CCT AST SerPl-cCnc 16U/L Normal 10 - 55 HH CCT GFR/BSA.pred SerPlBld DFP-BWO-OcRSlb 42 Below low normal 59 - HHCCT Albumin SerPl-mCnc 4.2g/dL Normal 3.5 - 5 H[facility]CT Albumin/Glob SerPl 1.3Ratio Normal 1 - 3 HHCCT Creat SerPl-mCnc 2.1mg/dL Above high normal 0. 5 - 1.3 HHCCT Bilirub SerPl-mCnc 0.3mg/dL Normal 0.2 - 1 [facility]CT Anion Gap Bld-sCnc 13 Normal 7 - 17 HHCCT Sodium SerPl-sCnc 137mmol/L Normal 136 - 145 HHCCT Potassium SerPl-sCnc 5.3mmol/L Normal 3.4 - 5.3 HHCCT Chloride SerPl-sCnc 101mmol/L Normal 98 - 10 7 H[facility]CT Glucose SerPl-mCnc 88mg/dL Normal 65 - 99 HHCCT Prot SerPl-mCnc 7.5g/dL Normal 6.3 - 8.3 H HCCT BUN/Creat SerPl 12Ratio Normal 10 - 25 H HCCT Calcium SerPl-mCnc 9.3mg/dL Normal 8.7 - 10 .5 HHCCT CO2 SerPl-sCnc 23mmol/L Normal 22 - 33 HH CCT BUN SerPl-mCnc 25mg/dL Above high normal 8 - 21 HHCCT ALP SerPl-cCnc 95U/L Normal 45 - 128 HH CCT Imm Granulocytes/leuk NFr Bld Auto 0.6% Normal [id number] HHCCT Lymphocytes/leuk NFr Bld Auto 6.9% Normal [id number] HHCCT PMV Bld Auto 9.5fL Normal [id number] 7.5 - 12.[address] Monocytes num Bld Auto 0.62Thou/uL Normal [id number] 0. 2 - 1.5 HHCCT Hct VFr Bld Auto 43.8% Normal 39 - 54 HHCCT Neutrophils num Bld Auto 11.57Thou/uL Above high normal [id number] 2 - 7.5 HHCCT Neutrophils/leuk NFr Bld Auto 87.2% Normal [id number] HHCCT Basophils/leuk NFr Bld Auto 0.2% Normal [id number] HHCCT Basophils num Bld Auto 0.02Thou/uL Normal [id number] 0 - 0.2 H[facility]CT Monocytes/leuk NFr Bld Auto 4.7% Normal [id number] HHCCT Eosinophil num Bld Auto 0.05Thou/uL Normal [id number] 0 - 0.7 HHCCT MCH RBC Qn Auto 35.2pg Above high normal 26 - 34 H[facility]CT Eosinophil/leuk NFr Bld Auto 0.4% Normal [id number] HHCCT Imm Granulocytes num Bld Auto 0.08Thou/uL Normal [id number] 0 - 0.1 HHCCT RDW RBC Auto-Rto 11.7% Normal [id number] 11.5 - 14. 5 [facility]CT Platelet num Bld Auto 167Thou/uL Normal [id number] 150 - 450 HHCCT MCHC RBC Auto-mCnc 34g/dL Normal 30 - 36 HHCCT MCV RBC Auto 104fL Above high normal [id number] 80 - 1 00 HHCCT WBC num Bld Auto 13.3Thou/uL Above high normal [id number] 4 - 11 HHCCT RBC num Bld Auto 4.23Mil/uL Below low normal [id number] 4. 5 - 6.2 HHCCT Hgb Bld-mCnc 14.9g/dL Normal [id number] 13 - 17.7 HHCC T Lymphocytes num Bld Auto 0.91Thou/uL Below low normal [id number] 1.5 - 4.5 HHCCT POC Glucose 84mg/dL Normal [id number] 65 - 99 HHCCT
[2024-06-26 10:02] LABS: MANUAL DIFF FLAG NO
[2024-06-26 10:14] LABS: Basophils Percent Auto 0.1 % (0-2); Eosinophils Absolute Auto 0.1 X10*3/uL (0.0-0.4); Eosinophils Percent Auto 1.5 % (0-4); Hematocrit 42.2 % (42.0-52.0); Hemoglobin 14.1 g/dl (14.0-18.0); Imm Gran Abs Auto 0.04 X10*3/uL (0.00-0.03); Imm Gran Pct Auto 0.5 % (0.0-0.4); Lymphocytes Absolute Auto 1.5 X10*3/uL (1.2-4.9); Lymphocytes Percent Auto 19.9 % (20-40); Mean Corpuscular HGB Conc 33.4 g/dl (31.0-36.0); Mean Corpuscular Hemoglobin 36.1 pg (27.0-33.0); Mean Corpuscular Volume 107.9 fL (80.0-98.0); Mean Platelet Volume 9.8 fL (9.4-12.4); Monocytes Absolute Auto 0.6 X10*3/uL (0.1-1.2); Monocytes Percent Auto 8.4 % (2-11); Neutrophils Absolute Auto 5.2 x10*3/uL (2.0-8.3); Neutrophils Percent Auto 69.6 % (45-73); Platelet Count 151 X10*3/uL (160-400); Red Blood Count 3.91 X10*6/uL (4.60-5.80); Red Cell Distribution Width 12.2 % (11.0-16.0); White Blood Count 7.4 X10*3/uL (4.8-10.8)
[2024-06-26 11:17] LABS: Alanine Aminotransferase 18 U/L (0-40); Albumin Level 4.3 g/dL (3.5-5.0); Alkaline Phosphatase 85 U/L (39-117); Anion Gap 11 (12-20); Aspartate Amino Transferase 17 U/L (5-37); Bilirubin Direct 0.1 mg/dL (0.0-0.5); Bilirubin Total 0.5 mg/dL (0.0-1.0); Blood Urea Nitrogen 14 mg/dL (9-16); Carbon Dioxide 26 mmol/L (22-29); Chloride 108 mmol/L (96-108); Estimated Glomerular Filt Rate 38; Free T4 (Free Thyroxine) 1.04 ng/dL (0.71-1.85); Potassium 4.7 mmol/L (3.3-5.1); Sodium 140 mmol/L (135-145); Thyroid Stimulating Hormone 2.06 uIU/mL (0.32-4.0); Total Protein 7.7 g/dL (6.5-8.0)
[2024-06-26 11:43] LABS: Lithium 0.52 mmol/L (0.60-1.20)
== END 2024-06-26 09:00 | disposition home or self-care (01) ==
LOC: HO.HMGCLDS 08:59
PROVIDERS: PCP Internal Medicine; Visit Provider Psychiatry & Neurology Psychiatry
DX: F31.9 Bipolar disorder, unspecified (principal); Z79.899 Other long term (current) drug therapy
CPT/HCPCS: 36415; 80051; 80076; 80164; 80178; 82565; 84439; 84443; 84520; 85025

== ENCOUNTER 2024-07-27 08:55 | Outpatient (REF) | payer BC, MEDICARE, MEDICAID, SELFPAY ==
--- OUTSIDE RECORDS SUMMARY | 2024-07-27 09:18 | XMS_ITS | Encounter Summary ---
Author Organization [facility], Address [address] [place] [address] Phone Care Team Providers Care Saxophone Assembler Name Role Phone Kentrell Van MD Primary Care Provider [phone] Encounter Details Date Type Department Care Team (Late st Contact Info) Description 04/15/2023 Documentation Only [facility] Dr Jake FREITAS [address] [place] [phone] Chon Banks MD [address] [place] [address] [place] [phone] Social History Tobacco Use Types Packs/Day Years Used Date Smoking Tobacco: Never Assessed Sex and Gender Information Value Date Recorded Sex Assigned at Not on file Legal Sex Male 1:21 PM EDT Gender Identity Not on file Sexual Orientation Not on file documented as of this encounter Plan of Treatment Upcoming Encounters Date Type Department Care Team (Late st Contact Info) Description 10/08/2024 1:30 PM EDT Office Visit [facility] Sg Dr Jake F[address]IT[address] [place] [phone] Chon Banks MD [address] [place] [address] [place] [address] documented as of this encounter Visit Diagnoses Not on filedocumented in this encounter Care Teams Saxophone Assembler Relationship Specialty Start Date End Date Kentrell Van MD BOONE CLOSING MACHINE OPERATOR [address] [place] [address] [address] [place], [place] PCP - General Internal Medicine 12/27/22 documented as of this encounter
--- OUTSIDE RECORDS SUMMARY | 2024-07-27 09:18 | XMS_ITS | Clinical Summary ---
Author Organization [facility], Address [address] [place] [address] [address] [place] [address] Phone Care Team Providers Care Senior Pricing Analyst Name Role Phone Kentrell Van MD Primary Care Provider [phone] Allergies Active Allergy Reactions Criticality Noted Date Comments Banana 04/15/2023 Other reaction(s): tested with positive allergy Carbamazepine Rash Low 04/15/2023 Codeine Rash Low 04/15/2023 Fluticasone Anaphylaxis High 04/15/2023 Fluticasone-Salmeterol Anaphylaxis High 04/15/2023 Latex Other (see comments) 04/15/2023 Quetiapine Rash Low 04/15/2023 Ziprasidone Rash Low 04/15/2023 Medications allopurinol (ZYLOPRIM) 100 MG tablet Take 100 mg by mouth 1 (one) time each day 3 Active cloNIDine (CATAPRES) 0.1 MG tablet Take 0.1 mg by mouth in the morning and 0.1 mg in the evening. 3 Active emtricitabine- tenofovir disoproxil fumarate (TRUVADA) 200-300 MG per tablet Take 1 tablet by mouth 1 (one) time each day 3 Active EPINEPHrine (EpiPen 2-Refugio) 0.3 MG/0.3ML injection syringe See Instructions, Intramuscular Once Due for office visit., # 2 kit, 1 Refills, Soft Stop, 04/14/22 10:51:00 EST, [id number], 190, cm, 01/12/22 15:25:00 EDT, Height, 113.64, kg, 04/24/20 10:36:00 EST, Dry Weight 2 Active esomeprazole (NexIUM) [address] capsule Take 20 mg by mouth in the morning and 20 mg in the evening. 3 Active eszopiclone (LUNESTA) 3 MG tablet Take 3 mg by mouth at bed time at bedtime 3 Active gabapentin (NEURONTIN) 600 MG tablet TAKE 1 TABLET BY MOUTH EVERY MORNING AND 3 TABLETS BY MOUTH EVERY NIGHT AT BEDTIME 3 Active haloperidol (HALDOL) 2 MG tablet TAKE 1 TABLET BY MOUTH TWICE DAILY AND 1 TABLET NEEDED 3 Active hydrOXYzine (ATARAX) 25 MG tablet Take 25 mg by mouth in the morning and 25 mg at noon and 25 mg in the evening and 25 mg before bedtime. 3 Active lamoTRIgine (LaMICtal) 25 MG tablet TAKE 2 TABLETS BY MOUTH TWICE DAILY X 14 DAYS THEN INCREASE TO 2 TABLETS EVERY MORNING AND 3 TABLETS EVERY EVENING 3 Active Caplyta 42 MG capsule Take 1 tablet by mouth 1 (one) time each day 3 Active metFORMIN (GLUCOPHAGE) 500 MG tablet Take 500 mg by mouth in the morning and 500 mg in the evening. 3 Active montelukast (SINGULAIR) 10 MG tablet Take 10 mg by mouth 1 (one) time each day in the evening 3 Active Multiple Vitamins-Lumber Sorter Machine als (CENTRUM ADULT PO) Take by mouth Active [place]-3 Fatty Acids (FISH OIL PO) Take by mouth Active sildenafil (VIAGRA) 100 MG tablet Take 100 mg by mouth 1 (one) time each day if needed for erectile dysfunction Active Active Problems Problem Noted Date Diagnosed Date Stage 3a chronic kidney disease 01/11/2023 [place] adverse reaction 01/11/2023 Essential (primary) hypertension 01/11/2023 Immunizations Name Administration Dates Next Due Hepatitis B 06/15/2000,05/11/2000 Influenza Whole 04/07/2020 Influenza, Unspecified 02/24/2022,2020,02/16/2019,02/15/2018,01/05,03/16/2017,04/02/2016,04/02/2015,03/15/20 15,03/21/2012 MMR 05/06/1995,08/04/1990 Pfizer SARS-COV-2 03/11/2021,09/06/2020,08/17/19 21 Pneumococcal Polysaccharide 01/11/2017 SARS-CoV-2, Unspecified 02/24/2022 Tdap 09/29/2015,05/11/2000 Social History Tobacco Use Types Packs/Day Years Used Date Smoking Tobacco: Never Assessed Sex and Gender Information Value Date Recorded Sex Assigned at Not on file Legal Sex Male 1:21 PM EDT Gender Identity Not on file Sexual Orientation Not on file Plan of Treatment Upcoming Encounters Date Type Department Care Team (Late st Contact Info) Description 10/08/2024 1:30 PM EDT Office Visit [facility] [place] - [address] [phone] Chon Banks MD [address] [place] [address] [place] [address] Health Maintenance Due Date Last Done Comments Hepatitis B Vaccine (3 of 3 - 3-dose series) 08/31/2000 06/15/2000, 05/11/2000 Pneumococcal Vaccine: Pediat rics (0 to 5 Years) and At-Risk Patients (6 to 64 Years) (2 of 2 - PCV) 01/11/2018 01/11/2017 Influenza Vaccine (#1) 2024 2, 02/20/2021, 04/07/2020, Additional history exists Insurance MEDICARE [facility] MEDICAID [place] Care Teams Senior Pricing Analyst Relationship Specialty Start Date End Date Kentrell Van MD [employer] APPLIED PSYCHOLOGY TEACHER [address] [place] [address] PCP - General Internal Medicine 12/27/22
--- OUTSIDE RECORDS SUMMARY | 2024-07-27 09:18 | XMS_ITS | Encounter Summary ---
Author Organization [facility], Address [address] [place] [address] Phone Care Team Providers Care Account Classification Clerk Name Role Phone Kentrell Van MD Primary Care Provider [phone] Encounter Details Date Type Department Care Team (Late st Contact Info) Description 04/15/2023 Documentation Only [facility] Dr Jake FREITAS [address] [place] [phone] Chon Banks MD [address] [place] [address] [place] [phone] Social History Tobacco Use Types Packs/Day Years [...] Visit [facility] Sg Dr Jake FREITAS [address] [place] [phone] Chon Banks MD [address] [place] [address] [place] [address] documented as of this encounter Visit Diagnoses Not on filedocumented in this encounter Care Teams Account Classification Clerk Relationship Specialty Start Date End Date Kentrell Van MD CUBA BRISTLE MACHINE OPERATOR [address] [place] [address] [address] [place], [place] PCP - General Internal Medicine 12/27/22 documented as of this encounter
--- OUTSIDE RECORDS SUMMARY | 2024-07-27 09:18 | XMS_ITS | Encounter Summary ---
Author Organization [facility], Address [address] [place] [address] Phone Care Team Providers Care Embedded Firmware Developer Name Role Phone Kentrell Van MD Primary Care Provider [phone] Encounter Details Date Type Department Care Team (Late Contact Info) Description 01/11/2023 Office Communication [facility] [address] [place] [address] Chon Banks MD [address] [place] [address] [place] [address] Social History Tobacco Use Types Packs/Day Years [...] Visit [facility] [address] [place] [phone] Chon Banks MD [address] [place] [address] [place] [address] documented as of this encounter Visit Diagnoses Not on filedocumented in this encounter Care Teams Embedded Firmware Developer Relationship Specialty Start Date End Date Kentrell Van MD SPARKS ELECTRIC FORK OPERATOR [address] [place] [address] [place] [address] PCP - General Internal Medicine 12/27/22 documented as of this encounter
--- OUTSIDE RECORDS SUMMARY | 2024-07-27 09:18 | XMS_ITS ---
Author Organization [facility] Address [address] [facility] [place] [address] Care Team Providers Care On Air Director Name Role Phone Kentrell Van MD Primary Care Provider Unavailelizabeth e Deja Hernandez Unavailable [phone] REASON FOR VISIT DAY CARE HOME MOTHER Encounters Encounter Location Date Provider Diagnosis [facility] [address] [place] [address] 06/18/2024 Deja Hernandez Plan Of Treatment No Information Progress Notes * Marko JETEROB:1990 ( 34 yo M)Acc No.[id number]:06/18/2024 Patient:?Garrick JETER :1990???Age:34 Y???Sex:Male Address:[address] [place] [address] * true * Date:? Generated for Printi ng/Trena/eTransmitting on:?07/27/2024 09:18 AM EST
--- OUTSIDE RECORDS SUMMARY | 2024-07-27 09:18 | XMS_ITS | Clinical Summary ---
Author Organization [facility] Address [address] [place] [id number] Care Team Providers Care Freelance Translator Name Role Phone Unavailable Primary Care Provider Unavailabl e Allergies No known active allergies Medications Medication Sig Dispensed Refills Start Date End Date Status haloperidol (HALDOL) 5 MG tablet Take 1 tablet (5 mg total) by mouth 2 (two) times a day. Active haloperidol (HALDOL) 5 MG tablet Take 2 tablets (10 mg total) by mouth every day after lunch. Active allopurinol (ZYLOPRIM) 100 mg tablet Take 1 tablet (100 mg total) by mouth every morning after breakfast. Active metFORMIN (GLUCOPHAGE) 500 MG tablet Take 1 tablet (500 mg total) by mouth 2 (two) times a day with meals. Active divalproex (DEPAKOTE) [address] Take 750 mg by mouth every morning after breakfast. Active emtricitabine-tenofov ir (TRUVADA) 200-300 mg per tablet Take 1 tablet by mouth every morning after breakfast. Active cloNIDine (CATAPRES) 0.1 MG tablet Take 1 tablet (0.1 mg total) by mouth 2 times a day. Active divalproex (DEPAKOTE) [address] Take 750 mg by mouth every day after lunch. Active divalproex (DEPAKOTE) [address] Take 2 tablets (1,000 mg total) by mouth nightly. Active perphenazine (TRILAFON) 4 MG tablet Take 1 tablet (4 mg total) by mouth 2 (two) times a day. Active lithium carbonate 150 MG IR capsule Take 3 capsules (450 mg total) by mouth nightly. Active esomeprazole (NexIUM) 40 MG capsule Take 1 capsule (40 mg total) by mouth nightly. Active loratadine (CLARITIN) 10 MG tablet Take 1 tablet (10 mg total) by mouth nightly. Active montelukast (SINGULAIR) 10 MG tablet Take 1 tablet (10 mg total) by mouth nightly. Active eszopiclone (LUNESTA) 3 MG tablet Take 1 tablet (3 mg total) by mouth nightly. Take immediately before bedtime Active clonazePAM (KlonoPIN) 0.5 MG disintegrating tablet Take 1 tablet (0.5 mg total) by mouth nightly. Active clonazePAM (KlonoPIN) 0.5 MG disintegrating tablet Take 1 tablet (0.5 mg total) by mouth daily as needed for anxiety. PRN for anxiety Active sildenafil (VIAGRA) 100 MG tablet Take 1 tablet (100 mg total) by mouth daily as needed for erectile dysfunction. Active budesonide-formoterol (SYMBICORT) 160-4.5 MCG/ACT inhaler Inhale 2 puffs daily as needed (shortness of breath). Active mupirocin (BACTROBAN) 2 % ointmentIndications:C arbuncle of neck Apply topically 3 (three) times a day. 30 g 05/02/2024 Active nicotine (NICODERM CQ) 21 MG/24HR patchIndications:Smok ing Place 1 patch on the skin daily. 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 Smoking 05/02/2024 Encounters Date Type Department Care Team Description 05/01/2024 8:24 PM EST - 05/02/2024 1:59 PM [facility] Hospital Encounter [facility] [address] [place] [phone] Tiago Swanson MD Marino, Frank J, MD Joseph, Kesley, MD Amrock, Erick Rivero MD Carbuncle of neck (Primary Dx); Abiodun angina; Smoking Discharge Disposition: Home or Self Care 05/01/2024 Travel from Last 3 Months Social History Tobacco Use Types Packs/Day Years Used Date Smoking Tobacco: Never Assessed [facility] Utilities Answer Date Recorded In the past 12 months has [employer], gas, oil, or water [employer] threatened to shut off services in your home? No 05/02/2024 Hunger Vital Sign Answer Date Recorded Within the past 12 months, y ou worried that your food would run out before you got the money to buy more. Never true 05/02/20 24 Within the past 12 months, t he food you bought just didn't last and you didn't have money to get more. Never true 05/02/2024 PRAPARE - Transportation Answer Date Re corded In the past 12 months, has l ack of transportation kept you from medical appointments or from getting medications? No 04/07 In the past 12 months, has l ack of transportation kept you from meetings, work, or from getting things needed for daily living? No 05/02/2024 Housing Stability Vital Sign Answer Ricardo e Recorded In the last 12 months, was t here a time when you were not able to pay the mortgage or rent on time? No 05/02/2024 In the past 12 months, how m any times have you moved where you were living? 1 05/02/2024 At any time in the past 12 m [facility], were you homeless or living in a nursing home (including now)? No 05/02/2024 Sex and Gender Information Value Date Recorded Sex Assigned at Male 05/01/2024 9:17 PM EST Gender Identity Male 05/01/2024 9:17 PM EST Sexual Orientation Choose not to disclose 2023 9:17 PM EST Last Filed Vital Signs Vital Sign Reading Time Taken Comments Blood Pressure 132/75 05/02/2024 8:56 AM EST Pulse 82 05/02/2024 2:11 AM EST Temperature 36.1 ??C (96.9 ??F) 05/02/2024 2:11 AM ES T Respiratory Rate 18 05/02/2024 2:11 AM EST Oxygen Saturation 94% 05/02/2024 2:11 AM EST Inhaled Oxygen Concentration - - Weight 97.6 kg (215 lb 1.6 oz) 05/02/2024 5:39 A M EST Height 190.5 cm (6' 3 ) 05/02/2024 5:39 AM EST Body Mass Index 26.89 05/02/2024 5:39 AM EST Plan of Treatment Health Maintenance Due Date Last Done Comments Hepatitis C Virus Screening 1989 DTaP/Tdap/Td Vaccines (1 - Tdap) 2008 Hepatitis B Vaccines (1 of 3 - 19+ 3-dose series) 2008 Pneumococcal Vaccine: Pediatric (0-5 Years) and At-Risk Patients (6 to 49 Years) (1 of 2 - PCV) 2008 COVID-19 Vaccine Completed 02/24/2024, , 02/24/2022, Additional history exists Influenza Vaccine Completed 02/24/2024, , 02/24/2022, Additional history exists HIV Screening Completed 05/02/2024 HPV Vaccines Aged Out No longer eligi ble based on patient's age to complete this topic Procedures Procedure Name Priority Date/Time Associated Diagnosis Comments HIV-1 RNA VIRAL LOAD REFLEX HIV-1 GENOTYPE - HIV1RG Routine 05/02/2024 11:20 AM EST CD4 PROFILE Routine 05/02/2024 11:20 AM EST SODIUM, URINE, RANDOM Routine 05/02/2024 10:27 AM EST CREATININE, URINE, RANDOM Routine 05/02/2024 10:27 AM EST LITHIUM LEVEL Routine 05/02/2024 5:44 AM EST BASIC METABOLIC PANEL STAT 05/02/2024 5:44 AM EST COMPLETE BLOOD COUNT, WITH DIFFERENTIAL STAT 05/02/2024 5:[address] SOFT TISSUE NECK W/CONTRAST STAT 05/01/2024 11:14 PM EST XR PANOREX STAT 05/01/2024 9:07 PM EST COMPREHENSIVE METABOLIC PANEL STAT 05/01/2024 8:40 PM EST LACTIC ACID, PLASMA Routine 05/01/2024 8 :40 PM EST COMPLETE BLOOD COUNT, WITH DIFFERENTIAL STAT 05/01/2024 8:40 PM EST POCT GLUCOSE, FINGERSTICK Routine 05/01/2024 8:27 PM EST from Last 3 Months Results * HIV-1 RNA Viral Load reflex HIV-1 Genotype (05/02/2024 11:20 AM EST) Pathologist [facility] HIV-1 RNA (copies/mL) Not Detected <30 copies/m L 05/09/2024 12:40 PM [facility] HIV-1 RNA (log10) Not Detected <1.46 log copies/m L 05/09/2024 12:40 PM [facility] Interpretation Not Detected 05/09/20 12:40 PM [facility] Comment:Performed by FDA nathalie roved Mandae Aptima TMA. Linear range is 30 to 10,000,000 copies/mL. HIV Genotyping is not recommended for viral loads below 2,000 copies/mL. Not FDA approved to diagnose HIV infection. Blood Plasma specimen / Unknown 05/02/2024 11:20 AM EST 05/02/2024 11:46 AM EST Erick Alva MD LAB BLOOD ORDERABLES [facility] [address] * CD4 Profile (05/02/2024 11:20 AM EST) [facility] CD4+ T Cells (%) 43 34 - 58 % 05/02/2024 7:00 PM [facility] CD4+ T Cells (Absolute) 857 535 - 1,451 cells/cumm 05/02/2024 7:00 PM [facility] Blood Blood specimen / Unknown 05/02/2024 11:20 AM EST 05/02/2024 11:46 AM EST Erick Alva MD [place] [address], [place] [address] * Sodium, Urine, Random (05/02/2024 10:27 AM EST) Sodium, Urine Random 42 mmol/L 05/02/2024 10:54 AM [facility] Comment:Reference range not established for random specimen. Urine Urine specimen / Unknown 05/02/2024 10:27 AM EST 05/02/2024 10:30 AM EST Erick Alva MD URINE ORDERABLES Performing Organization Address City/[facility] [place] [address], [place] [address] * Creatinine, Urine, Random (05/02/2024 10:27 AM EST) Creatinine, Urine, Random 56 mg/dL 05/02/2024 10:54 AM [facility] Comment:Reference range not established for random specimen. Urine Urine specimen / Unknown 05/02/2024 10:27 AM EST 05/02/2024 10:30 AM EST Erick Alva MD URINE ORDERABLES Performing Organization Address [facility] [place] [address], [place] [address] * (ABNORMAL) Complete Blood Count, with Differential (05/02/2024 5:44 AM EST) Only the most recent of2 resultswithin the time period is included. White Blood Cell Count 9.5 4.0 - 11.0 Thou/uL 05/02/2024 7:40 AM [facility] Platelet Count 143(L) 150 - 450 Thou/uL 05/02/2024 7:40 AM [facility] Hemoglobin 12.7(L) 13.0 - 17.7 g/dL 05/02/2024 7:40 AM [facility] Hematocrit 38.0(L) 39.0 - 54.0 % 05/02/2024 7:40 AM [facility] Red Blood Cell Count 3.62(L) 4.50 - 6.20 Mil/uL 05/02/2024 7:40 AM [facility] MCV 105(H) 80 - 100 fL 05/02/2024 7:40 AM [facility] MCH 35.1(H) 26.0 - 34.0 pg 05/02/2024 7:40 AM [facility] MCHC 33.4 30.0 - 36.0 g/dL 05/02/2024 7:40 AM [facility] RDW 11.7 11.5 - 14.5 % 05/02/2024 7:40 AM [facility] MPV 10.1 7.5 - 12.5 fL 05/02/2024 7:40 AM [facility] Neutrophils Auto 74.1 % 05/02/20 7:40 AM [facility] Immature Granulocytes 0.3 % 05/02/2024 7:40 AM [facility] Lymphocytes Auto 16.1 % 05/02/20 7:40 AM [facility] Monocytes Auto 9.3 % 05/02/2024 7:40 AM [facility] Eosinophils Auto 0.1 % 05/02/20 7:40 AM [facility] Basophils Auto 0.1 % 05/02/2024 7:40 AM [facility] Abs Neutrophils Auto 7.05 2.00 - 7.50 Thou/uL 05/02/2024 7:40 AM [facility] Abs Immature Granulocytes 0.03 0.00 - 0.10 Thou/uL 05/02/2024 7:40 AM [facility] Abs Lymphocytes Auto 1.53 1.50 - 4.50 Thou/uL 05/02/2024 7:40 AM [facility] Abs Monocytes Auto 0.89 0.20 - 1.50 Thou/uL 05/02/2024 7:40 AM [facility] Abs Eosinophils Auto 0.01 0.00 - 0.70 Thou/uL 05/02/2024 7:40 AM [facility] Abs Basophils Auto 0.01 0.00 - 0.20 Thou/uL 05/02/2024 7:40 AM [facility] Blood Blood specimen / Unknown 05/02/2024 5:44 AM [facility] 05/02/2024 7:33 AM EST Solange Wilson MD LAB BLOOD ORDERABLES Performing Organization Address City/[facility]/[place] [address], [place] [address] * (ABNORMAL) [place] Level (05/02/2024 5:44 AM EST) [place] 0.50(L) 0.60 - 1.20 mmol/L 05/02/2024 8:02 AM [facility] Blood Serum specimen / Unknown 05/02/2024 5:44 AM EST 05/02/2024 7:34 AM EST Solange Wilosn MD LAB BLOOD ORDERABLES Performing Organization Address City/[facility] [place] [address], [place] [address] * (ABNORMAL) Basic Metabolic Panel (05/02/2024 5:44 AM EST) Glucose 85 65 - 99 mg/dL 05/02/2024 7:58 AM [facility] Comment:Fasting: <100 mg/dL, Non-Fasting: <200 mg/dL (ADA 2005) Blood Urea Nitrogen (BUN) 25(H) 8 - 21 mg/dL 05/02/2024 7:58 AM [facility] Creatinine 2.1(H) 0.5 - 1.3 mg/dL 05/02/2024 7:58 AM [facility] eGFR 42(L) >59 05/02/2024 7:58 AM [facility] Comment:CKD-EPI (2020) in mL /min/1.73 sq meters. Sodium 137 136 - 145 mmol/L 05/02/2024 7:58 AM [facility] Potassium 4.8 3.4 - 5.3 mmol/L 05/02/2024 7:58 AM [facility] Chloride 105 98 - 107 mmol/L 05/02/2024 7:58 AM [facility] CO2 22 22 - 33 mmol/L 05/02/2024 7:58 AM [facility] Anion Gap 10 7 - 17 05/02/2024 7:58 AM EST [facility] Calcium 9.3 8.7 - 10.5 mg/dL 05/02/2024 7:58 AM EST [facility] BUN/Creatinine Ratio 12 10.0 - 25.0 Ratio 05/02/2024 7:58 AM EST [facility] Blood (Plasma/Serum) 05/02/2024 5:44 AM EST 05/02/2024 7:33 AM EST Solange Wilson MD LAB BLOOD ORDERABLES [address] [address], [address] [address] * CT Soft tissue neck w/contrast (05/01/2024 11:14 PM EST) Anatomical Region Laterality Modality Neck Computed Tomogra phy 05/01/2024 11:0 0 PM EST Impressions 05/03/2024 8:36 AM EST Soft tissue edema with scattered nodularity extending from the submental space inferiorly in the anterior cervical soft tissues consistent with Abiodun's angina. There is also skin thickening, soft tissue edema, and scattered hypoattenuating cutaneous lesions of the bilateral zygomatic and buccal regions. These scattered cutaneous nodules may represent epidermal inclusion cysts with superimposed cellulitis, however, developing abscesses cannot be excluded. No retropharyngeal fluid collection is visualized. Airways widely patent. Scattered dental caries are visualized without odontogenic abscesses. ?? Interpreted by: ??Aliza Cartwright MD [employer] I personally reviewed the images and the resident's preliminary report and AGREE with the report as it is now presented ([email or web address]). Narrative 05/03/2024 8:36 AM EST EXAMINATION: CT SOFT TISSUE NECK WITHOUT CONTRAST CLINICAL INFORMATION: Abiodun ?? COMPARISON: None available ?? TECHNIQUE: Helical imaging was performed in the axial plane with generation of coronal and sagittal reformatted images. This CT examination was performed using dose optimization techniques as appropriate, variously including the following: *Automated exposure control *Adjustment of mA and/or kV according to patient size (this includes techniques or standardized protocols for targeted exams where dose is matched to indication/reason for exam; i.e. extremities or head) *Use of iterative reconstruction technique DLP: 476 mGy-cm FINDINGS: There is soft tissue stranding with scattered nodularity in the submental space extending inferiorly within the subcutaneous tissues to the anterior cervical region anterior to the thyroid. Examples of the scattered nodularity include series 2, images 53, 54, and 67 where there are a soft tissue nodularities extending to the skin. There are additional scattered regions of soft tissue nodularity extending to the skin along the bilateral aspects of the zygomatic and buccal regions with associated soft tissue stranding and skin thickening. Several of these cutaneous nodules are hypoattenuating with the largest on the right measuring 1.1 x 0.8 cm (series 301, image 348) and the largest on the left measuring 0.9 x 0.7 cm (series 301, image 379). There are scattered associated enlarged cervical lymph nodes visualized with the largest measuring 1.7 x 1.1 cm in the submental space (series 2, image 57). There is no fluid or abnormality of the retropharyngeal space. The airway is widely patent. No periapical lucencies are visualized to suggest odontogenic abscesses. There are scattered dental caries visualized including the left mandibular second molar. There is opacification of the bilateral maxillary sinuses, left greater than right. The visualized portions of the ethmoid and sphenoid sinuses are well aerated. The bilateral mastoid sinuses are well aerated. The nasal septum is midline. The parotid glands are homogeneous in attenuation. The submandibular glands are normal.The laryngeal structures are normal. The parapharyngeal fat is preserved. The carotid sheath vasculature opacify normally. The thyroid gland is normal. The superior mediastinum is unremarkable. The lung apices are clear. The temporomandibular joints are normal. No periapical disease is identified. No osseous abnormalities are seen. The imaged portions of the brain parenchyma are unremarkable. Procedure Note Sabrina Howell MD - 05/03/2024 EXAMINATION: CT SOFT TISSUE NECK WITHOUT CONTRAST CLINICAL INFORMATION: Abiodun COMPARISON: None available TECHNIQUE: Helical imaging was performed in the axial plane with generation of coronal and sagittal reformatted images. This CT examination was performed using dose optimization techniques as appropriate, variously including the following: *Automated exposure control *Adjustment of mA and/or kV according to patient size (this includes techniques or standardized protocols for targeted exams where dose is matched to indication/reason for exam; i.e. extremities or head) *Use of iterative reconstruction technique DLP: 476 mGy-cm FINDINGS: There is soft tissue stranding with scattered nodularity in the submental space extending inferiorly within the subcutaneous tissues to the anterior cervical region anterior to the thyroid. Examples of the scattered nodularity include series 2, images 53, 54, and 67 where there are a soft tissue nodularities extending to the skin. There are additional scattered regions of soft tissue nodularity extending to the skin along the bilateral aspects of the zygomatic and buccal regions with associated soft tissue stranding and skin thickening. Several of these cutaneous nodules are hypoattenuating with the largest on the right measuring 1.1 x 0.8 cm (series 301, image 348) and the largest on the left measuring 0.9 x 0.7 cm (series 301, image 379). There are scattered associated enlarged cervical lymph nodes visualized with the largest measuring 1.7 x 1.1 cm in the submental space (series 2, image 57). There is no fluid or abnormality of the retropharyngeal space. The airway is widely patent. No periapical lucencies are visualized to suggest odontogenic abscesses. There are scattered dental caries visualized including the left mandibular second molar. There is opacification of the bilateral maxillary sinuses, left greater than right. The visualized portions of the ethmoid and sphenoid sinuses are well aerated. The bilateral mastoid sinuses are well aerated. The nasal septum is midline. The parotid glands are homogeneous in attenuation. The submandibular glands are normal.The laryngeal structures are normal. The parapharyngeal fat is preserved. The carotid sheath vasculature opacify normally. The thyroid gland is normal. The superior mediastinum is unremarkable. The lung apices are clear. The temporomandibular joints are normal. No periapical disease is identified. No osseous abnormalities are seen. The imaged portions of the brain parenchyma are unremarkable. IMPRESSION: Soft tissue edema with scattered nodularity extending from the submental space inferiorly in the anterior cervical soft tissues consistent with Abiodun's angina. There is also skin thickening, soft tissue edema, and scattered hypoattenuating cutaneous lesions of the bilateral zygomatic and buccal regions. These scattered cutaneous nodules may represent epidermal inclusion cysts with superimposed cellulitis, however, developing abscesses cannot be excluded. No retropharyngeal fluid collection is visualized. Airways widely patent. Scattered dental caries are visualized without odontogenic abscesses. Interpreted by: Aliza Cartwright MD [employer] I personally reviewed the images and the resident's preliminary report and AGREE with the report as it is now presented ([email or web address]). Emerson Vazquez MD IMG CT ORDERABLES * XR Panorex (05/01/2024 9:07 PM EST) Anatomical Region Laterality Modality Face Computed Radiogr aphy 05/01/2024 8:50 PM EST Impressions 05/01/2024 10:06 PM EST No periapical lucency to suggest odontogenic abscess. Lucencies projecting over the crown of bilateral mandibular second molar teeth may represent dental caries. I personally reviewed the images and the resident's preliminary report and made the MINOR addendum above ([email or web address]). Narrative 05/01/2024 10:06 PM EST EXAMINATION: Panorex radiograph of the maxillofacial bones. CLINICAL INFORMATION: Abiodun's angina COMPARISON: None. TECHNIQUE: Panorex radiograph of the maxilla and mandible was obtained. FINDINGS: No evidence of mandibular or maxillary fracture. The mandibular condyles appear well-seated within their respective temporal articular grooves. No abnormal periapical lucencies to suggest odontogenic abscesses. Lucencies projecting over the crown of bilateral mandibular second molar teeth. No abnormal opacification of the visualized paranasal sinuses. Procedure Note Talib Godfrey MD - 05/01/2024 EXAMINATION: Panorex radiograph of the maxillofacial bones. CLINICAL INFORMATION: Abiodun's angina COMPARISON: None. TECHNIQUE: Panorex radiograph of the maxilla and mandible was obtained. FINDINGS: No evidence of mandibular or maxillary fracture. The mandibular condyles appear well-seated within their respective temporal articular grooves. No abnormal periapical lucencies to suggest odontogenic abscesses. Lucencies projecting over the crown of bilateral mandibular second molar teeth. No abnormal opacification of the visualized paranasal sinuses. IMPRESSION: No periapical lucency to suggest odontogenic abscess. Lucencies projecting over the crown of bilateral mandibular second molar teeth may represent dental caries. I personally reviewed the images and the resident's preliminary report and made the MINOR addendum above ([email or web address]). Tiago Swanson MD IMG DIAGNOSTIC IMAGI NG ORDERABLES * Lactic Acid, Plasma (STAT) (05/01/2024 8:40 PM EST) Lactic Acid 1.1 0.5 - 1.9 mmol/L 05/01/2024 9:27 PM [facility] Blood Plasma specimen / Unknown 05/01/2024 8:40 PM EST 05/01/2024 9:01 PM EST Tiago Swanson MD [place] [address], [place] [address] * (ABNORMAL) Comprehensive metabolic panel (05/01/2024 8:40 PM EST) Glucose 88 65 - 99 mg/dL 05/01/2024 9:26 PM [facility] Comment:Fasting: <100 mg/dL, Non-Fasting: <200 mg/dL (ADA 2005) Blood Urea Nitrogen (BUN) 25(H) 8 - 21 mg/dL 05/01/2024 9:26 PM [facility] Creatinine 2.1(H) 0.5 - 1.3 mg/dL 05/01/2024 9:26 PM [facility] eGFR 42(L) >59 05/01/2024 9:26 PM [facility] Comment:CKD-EPI (2020) in mL /min/1.73 sq meters. Sodium 137 136 - 145 mmol/L 05/01/2024 9:26 PM [facility] Potassium 5.3 3.4 - 5.3 mmol/L 05/01/2024 9:26 PM [facility] Chloride 101 98 - 107 mmol/L 05/01/2024 9:26 PM [facility] CO2 23 22 - 33 mmol/L 05/01/2024 9:26 PM [facility] Calcium 9.3 8.7 - 10.5 mg/dL 05/01/2024 9:26 PM [facility] Alkaline Phosphatase 95 45 - 128 U/L 05/01/2024 9:26 PM [facility] Aspartate Aminotrans (AST) 16 10 - 55 U/L 05/01/2024 9:26 PM [facility] Alanine Aminotrans (ALT) 18 10 - 55 U/L 05/01/2024 9:26 PM [facility] Bilirubin, Total 0.3 0.2 - 1.0 mg/dL 05/01/2024 9:26 PM [facility] Protein, Total 7.5 6.3 - 8.3 g/dL 05/01/2024 9:26 PM [facility] Albumin 4.2 3.5 - 5.0 g/dL 05/01/2024 9:26 PM [facility] BUN/Creatinine Ratio 12 10.0 - 25.0 Ratio 05/01/2024 9:26 PM [facility] Globulin 3.3 1.5 - 3.9 g/dL 05/01/2024 9:26 PM [facility] Albumin/Globulin Ratio 1.3 1.0 - 3.0 Ratio 05/01/2024 9:26 PM [facility] Anion Gap 13 7 - 17 05/01/2024 9:26 PM [facility] Blood (Plasma/Serum) 05/01/2024 8:40 PM EST 05/01/2024 9:01 PM EST Tiago Swanson MD [place] [address], [place] [address] * POCT Glucose, Fingerstick (05/01/2024 8:27 PM EST) POC Glucose 84 65 - 99 mg/dL 05/01/2024 8:27 PM EST Blood specimen / Unknown 05/01/2024 8:27 PM EST 05/01/2024 8:28 PM EST Tiago Swanson MD POINT OF CARE TEST [facility] See Below from Last 3 Months Advance Directives * Full Code (Latest Code Status on File) Date Activated Date Inactivated Comments 05/02/2024 12:44 AM Healthcare Agents on File Name Relationship Healthcare Agent [facility] p Communication Javier Jeter Plenary guardian 3. Plenary Guardian
--- OUTSIDE RECORDS SUMMARY | 2024-07-27 09:18 | XMS_ITS | Patient Health Record ---
Author Organization [facility] Address [address] [facility] [address] Care Team Providers Care Geology Associate Name Role Phone Carlota ROJO, Kentrell Primary Care Provider Deja Hernandez [phone] Reason For Referral No Information Encounters Encounter Location Date Provider Diagnosis [facility] [address] [place] [address] 06/18/2024 Deja Hernandez [address] [address] 07/03/2024 Deja Hernandez Plan Of Treatment No Information Insurance Providers Payer Name Payer Address Payer Phone Subscriber Number Group Number Insured Name Patient Relationship to Insured Coverage Start Date Coverage End Date Medicare National [facility] [address] [place] [address] [id number] Garrick Jeter Self - patient is the insured [facility] [address] [place] [address] [id number] Garrick Jeter Self - patient is the insured
--- OUTSIDE RECORDS SUMMARY | 2024-07-27 09:18 | XMS_ITS | Encounter Summary ---
Author Organization [facility] Address [address] [place] [address] Phone Care Team Providers Care Products Mechanical Design Engineer Name Role Phone Kentrell Van MD Primary Care Provider [phone] Encounter Details Date Type Department Care Team (Late st Contact Info) Description 10/10/2023 Documentation Only [facility] [address] [place] [address] Gita Burnett [address] [place] [phone] Social History Tobacco Use Types Packs/Day Years [...] Visit [facility] Dr Jake FREITAS [address] [place] [phone] Chon Banks MD [address] [place] [address] [place] [address] documented as of this encounter Visit Diagnoses Not on filedocumented in this encounter Care Teams Products Mechanical Design Engineer Relationship Specialty Start Date End Date Kentrell Van MD DAVIS JUNCTION SENIOR PROGRAM PLANNER [address] [place] [address] [address] [place], [place] PCP - General Internal Medicine 12/27/22 documented as of this encounter
--- OUTSIDE RECORDS SUMMARY | 2024-07-27 09:19 | XMS_ITS ---
Author Organization [facility] Address [address] [facility] [address] Care Team Providers Care County Or City Auditor Name Role Phone Kentrell Van MD Primary Care Provider Unavailabl e David, Deja Unavailable [phone] REASON FOR VISIT cx appt 08/01/24 Encounters Encounter Location Date Provider Diagnosis [facility] [address] [place] [address] 07/03/2024 Dejajose Hernandez Plan Of Treatment No Information Progress Notes * Marko MATTHEWOB:1990 ( 34 yo M)Acc No.[id number]:07/03/2024 Patient:?Garrick MATTHEW :1990???Age:34 Y???Sex:Male Address:[address] [place] [address] * true * Date:? Generated for Printi emy/Trena/eTransmitting on:?07/27/2024 09:18 AM EST
[2024-07-27 10:00] LABS: MANUAL DIFF FLAG NO
[2024-07-27 10:01] LABS: Basophils Percent Auto 0.3 % (0-2); Eosinophils Absolute Auto 0.2 X10*3/uL (0.0-0.4); Eosinophils Percent Auto 3.6 % (0-4); Hematocrit 41.8 % (42.0-52.0); Imm Gran Abs Auto 0.01 X10*3/uL (0.00-0.03); Imm Gran Pct Auto 0.2 % (0.0-0.4); Mean Corpuscular HGB Conc 33.5 g/dl (31.0-36.0); Mean Corpuscular Hemoglobin 35.5 pg (27.0-33.0); Mean Corpuscular Volume 106.1 fL (80.0-98.0); Mean Platelet Volume 10.4 fL (9.4-12.4); Monocytes Absolute Auto 0.5 X10*3/uL (0.1-1.2); Monocytes Percent Auto 7.4 % (2-11); Neutrophils Absolute Auto 3.5 x10*3/uL (2.0-8.3); Neutrophils Percent Auto 56.5 % (45-73); Platelet Count 143 X10*3/uL (160-400); Red Blood Count 3.94 X10*6/uL (4.60-5.80); Red Cell Distribution Width 11.9 % (11.0-16.0); White Blood Count 6.2 X10*3/uL (4.8-10.8)
[2024-07-27 10:20] LABS: Alanine Aminotransferase 29 U/L (0-40); Aspartate Amino Transferase 22 U/L (5-37); Estimated Glomerular Filt Rate 50
[2024-07-27 10:31] LABS: Cannabinoid Screen Urine POSITIVE (Not Detect)
== END 2024-07-27 08:56 | disposition home or self-care (01) ==
LOC: HO.HMGCLDS 08:55
PROVIDERS: PCP Internal Medicine; Visit Provider Psychiatry & Neurology Psychiatry
DX: N18.2 Chronic kidney disease, stage 2 (mild) (principal); Z79.899 Other long term (current) drug therapy
CPT/HCPCS: 80164; 80307; 82565; 84450; 84460; 85025

== ENCOUNTER 2024-09-05 09:04 | Outpatient (REF) | payer BC, MEDICARE, MEDICAID, SELFPAY ==
--- OUTSIDE RECORDS SUMMARY | 2024-09-05 10:00 | XMS_ITS | Encounter Summary ---
Author Organization [facility] Address [address] [place] [address] Phone Care Team Providers Care Field Human Resources Manager Name Role Phone Kentrell Van MD Primary Care Provider [phone] Encounter Details Date Type Department Care Team (Late st Contact Info) Description 10/10/2023 Documentation Only [facility] [address] [place] [address] Gita Burnett [address] [place] [phone] Social History Tobacco Use Types Packs/Day [...] Visit [facility] Dr Jake FREITAS [address] [place] [phone] Chon Banks MD [address] [place] [address] [place] [address] documented as of this encounter Visit Diagnoses Not on filedocumented in this encounter Care Teams Field Human Resources Manager Relationship Specialty Start Date End Date Kentrell Van MD [employer] [employer] PRINTER OPERATOR [address] [place] [address] [address] [place], [place] PCP - General Internal Medicine 12/27/22 documented as of this encounter
--- OUTSIDE RECORDS SUMMARY | 2024-09-05 10:00 | XMS_ITS | Patient Health Record ---
Author Organization [facility] Address [address] [facility] [place] [address] Care Team Providers Care Lead Burner Name Role Phone Carlota ROJO, Kentrell Primary Care Provider Deja Hernandez [phone] Reason For Referral No Information Encounters Encounter Location Date Provider Diagnosis [facility] [address] [place] [address] 06/18/2024 Deja Hernandez [address] [address] 07/03/2024 Deja Hernandez Plan Of Treatment No Information Insurance Providers Payer Name Payer Address Payer Phone Subscriber Number Group Number Insured Name Patient Relationship to Insured Coverage Start Date Coverage End Date Medicare National [facility] [address] [place] [address] [id number] Garrick Jeter Self - patient is the insured [facility] [address] [place] [address] [id number] Garrick Jeter Self - patient is the insured
--- OUTSIDE RECORDS SUMMARY | 2024-09-05 10:00 | XMS_ITS | Encounter Summary ---
Author Organization [facility] [place], Address [address] [place] [address] Phone Care Team Providers Care Hospice Registered Nurse Name Role Phone Kentrell Van MD Primary Care Provider [phone] Encounter Details Date Type Department Care Team (Late Contact Info) Description 01/11/2023 Office Communication [facility] [address] [place] [address] Chon Banks MD [address] [place] [address] [place] [address] Social History Tobacco Use Types [...] Visit [facility] [address] [place] [phone] Chon Banks MD [address] [place] [address] [place] [address] documented as of this encounter Visit Diagnoses Not on filedocumented in this encounter Care Teams Hospice Registered Nurse Relationship Specialty Start Date End Date Kentrell Van MD [place] CREW SCHEDULER [address] [place] [address] [place] [address] PCP - General Internal Medicine 12/27/22 documented as of this encounter
--- OUTSIDE RECORDS SUMMARY | 2024-09-05 10:00 | XMS_ITS ---
Author Organization [facility] Address [address] [place] [address] [place] [address] Care Team Providers Care Lead Quality Control Technician Name Role Phone Kentrell Van MD Primary Care Provider UnavailDeja Benson [phone] Encounters Encounter Location Date Provider Diagnosis [address] [place] [address] 08/01/2024 Deja Hernandez Plan Of Treatment No Information Progress Notes * Emily MATTHEWPollyOB:1990 ( 34 yo M)Acc No.[id number]:08/01/2024 Progress Notes Patient:?Garrick MATTHEW Provider:?Deja Hernandez DPM :1990???Age:34 Y???Sex:Male Ricardo e:08/01/2024 Address:[address] [place], [phone] Pcp:Kentrell Van MD Subjective: * Chief Complaints: * ??? * Medical History:? Objective: * Vitals:? Assessment: Plan: * Treatment: * Images: * The named appointment provid er may or may not be the originator of this progress note, and it is not deemed complete until electronically signed by the appointment provider. Sign off status: Pending * Provider:?Deja Hernandez DPM Date:?2024 Generated for Rian quevedo/Trena/eTransmitting on:?09/05/2024 10:00 AM EDT
--- OUTSIDE RECORDS SUMMARY | 2024-09-05 10:01 | XMS_ITS | Encounter Summary ---
Author Organization [facility] [place], Address [address] [place] [address] Phone Care Team Providers Care Payroll Director Name Role Phone Kentrell Van MD Primary Care Provider [phone] Encounter Details Date Type Department Care Team (Late st Contact Info) Description 04/15/2023 Documentation Only [facility] Dr Jake FREITAS [address] [place] [phone] Chon Banks MD [address] [place] [address] [place] [phone] Social History Tobacco Use Types Packs/Day Years [...] Visit [facility] Sg [address] Jake [address] [place] [phone] Chon Banks MD [address] [place] [address] [place] [address] documented as of this encounter Visit Diagnoses Not on filedocumented in this encounter Care Teams Payroll Director Relationship Specialty Start Date End Date Kentrell Van MD [employer] FREEZER ASSISTANT [address] [place] [address] [address] [place], [place] PCP - General Internal Medicine 12/27/22 documented as of this encounter
--- OUTSIDE RECORDS SUMMARY | 2024-09-05 10:01 | XMS_ITS ---
Author Organization [facility] Address [address] [place] [address] Care Team Providers Care Senior Lead Project Manager Name Role Phone Kentrell Van MD Primary Care Provider Unavailabl e David, Deja Unavailable [phone] REASON FOR VISIT cx appt 08/01/24 Encounters Encounter Location Date Provider Diagnosis [facility] [address] [place] [address] 07/03/2024 Deja Black Plan Of Treatment No Information Progress Notes * Marko MATTHEWOB:1990 ( 34 yo M)Acc No.[id number]:07/03/2024 Patient:?Garrick MATTHEW :1990???Age:34 Y???Sex:Male Address:[address] [place] [address] * true * Date:? Generated for Printi emy/Trena/eTransmitting on:?09/05/2024 10:00 AM EDT
--- OUTSIDE RECORDS SUMMARY | 2024-09-05 10:01 | XMS_ITS ---
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 Generated for Printi ng/Famanuelg/eTransmitting on:?09/05/2024 10:00 AM EDT
--- OUTSIDE RECORDS SUMMARY | 2024-09-05 10:01 | XMS_ITS | Clinical Summary ---
Author Organization [facility] Address [address] [place] [address] Care Team Providers Care Ornamental Rail Installer Name Role Phone Unavailable Primary Care Provider [...] Diagnosed Date Abiodun angina 05/02/2024 Smoking 05/02/2024 Social History Tobacco Use Types Packs/Day Years Used Date Smoking Tobacco: Never Assessed [facility] Utilities Answer Date Recorded In the past 12 months has e [employer], [employer], [employer], or water [employer] threatened to shut off services in your [...] any time in the past 12 m [facility], were you homeless or living in a jail (including now)? No 05/02/2024 Sex and Gender [...] - HIV1RG Routine 05/02/2024 11:20 AM EST from Last 3 Months or Most Recently Relevant to Health Maintenance Results * HIV-1 RNA Viral Load reflex HIV-1 Genotype (05/02/2024 11:20 AM EST) HIV-1 RNA (copies/mL) Not Detected <30 copies/m L 05/09/2024 12:40 PM EST [facility] HIV-1 RNA (log10) Not Detected <1.46 log copies/m L 05/09/2024 12:40 PM EST [facility] Interpretation Not Detected 05/09/20 12:40 PM EST [facility] Comment:Performed by FDA nathalie roved [employer] T[facility]. Linear range is 30 to 10,000,000 copies/mL. HIV Genotyping is not recommended for viral loads below 2,000 copies/mL. Not FDA approved to diagnose HIV infection. Blood Plasma specimen / Unknown 05/02/2024 11:20 AM EST 05/02/2024 11:46 AM EST Erick Alva MD LAB BLOOD ORDERABLES [facility] [address] from Last 3 Months or Most Recently Relevant to Health Maintenance Advance Directives * Full Code (Latest Code Status on File) Date Activated Date Inactivated Comments 05/02/2024 12:44 AM Healthcare Agents on File Name Relationship Healthcare Agent [facility] p Communication Javier Jeter Plenary guardian 3. Plenary Guardian
--- OUTSIDE RECORDS SUMMARY | 2024-09-05 10:01 | XMS_ITS | Clinical Summary ---
Author Organization [facility], Address [address] [place] [address] [address] [place] [address] Phone Care Team Providers Care Lead Programmer Analyst Name Role Phone Kentrell Van MD Primary Care Provider [phone] Allergies Active Allergy Reactions Criticality Noted Date [...] 1 Refills, Soft Stop, 04/14/22 10:51:00 EST, [id number], 190, cm, 01/12/22 15:25:00 EDT, Height, 113.64, [...] day in the evening 3 Active Multiple Vitamins-[facility] (CENTRUM ADULT PO) Take by mouth Active [place]-3 Fatty Acids (FISH OIL PO) Take by mouth Active sildenafil (VIAGRA) 100 MG tablet Take 100 mg by mouth 1 (one) time each day if needed for erectile dysfunction Active Active Problems Problem Noted Date Diagnosed Date Stage 3a chronic kidney disease 01/11/2023 [place] adverse reaction 01/11/2023 Essential (primary) hypertension 01/11/2023 [...] Visit [facility] [place] - [address] [address] Chon Banks MD [address] [place] [address] [place] [address] Health Maintenance Due Date Last Done Comments Hepatitis B Vaccine (3 of 3 - 3-dose series) 08/31/2000 06/15/2000, 05/11/2000 Pneumococcal Vaccine: Pediat rics (0 to 5 Years) and At-Risk Patients (6 to 64 Years) (2 of 2 - PCV) 01/11/2018 01/11/2017 Influenza Vaccine (Season Ended) 2025 02/24/2022, 02/20/2021, 04/07/2020, Additional history exists Insurance MEDICARE [facility] [place]ICAID [place] Care Teams Lead Programmer Analyst Relationship Specialty Start Date End Date Kentrell Van MD GAGE PARTS RUNNER [address] [place] [address] PCP - General Internal Medicine 12/27/22
--- OUTSIDE RECORDS SUMMARY | 2024-09-05 10:01 | XMS_ITS | Encounter Summary ---
Author Organization [facility] [place], Address [address] [place] [address] Phone Care Team Providers Care Supervisor Functional Testing Name Role Phone Kentrell Van MD Primary Care Provider [phone] Encounter Details Date Type Department Care Team (Late st Contact Info) Description 04/15/2023 Documentation Only [facility] Dr Jake FREITAS [address] [place] [phone] Chon Banks MD [address] [place] [address] [place] [phone] Social History Tobacco Use Types Packs/Day Years [...] Visit [facility] Sg Dr Jake [address] [place] [phone] Chon Banks MD [address] [place] [address] [place] [address] documented as of this encounter Visit Diagnoses Not on filedocumented in this encounter Care Teams Supervisor Functional Testing Relationship Specialty Start Date End Date Kentrell Van MD [employer] FINANCIAL LEGAL ASSISTANT [address] [place] [address] [address] [place], [place] PCP - General Internal Medicine 12/27/22 documented as of this encounter
[2024-09-05 10:38] LABS: MANUAL DIFF FLAG NO
[2024-09-05 10:42] LABS: Basophils Percent Auto 0.3 % (0-2); Eosinophils Absolute Auto 0.2 X10*3/uL (0.0-0.4); Eosinophils Percent Auto 3.4 % (0-4); Hematocrit 40.4 % (42.0-52.0); Hemoglobin 14.4 g/dl (14.0-18.0); Imm Gran Abs Auto 0.03 X10*3/uL (0.00-0.03); Imm Gran Pct Auto 0.5 % (0.0-0.4); Lymphocytes Absolute Auto 2.5 X10*3/uL (1.2-4.9); Lymphocytes Percent Auto 41.2 % (20-40); Mean Corpuscular HGB Conc 35.6 g/dl (31.0-36.0); Mean Corpuscular Hemoglobin 36.4 pg (27.0-33.0); Mean Platelet Volume 9.7 fL (9.4-12.4); Monocytes Absolute Auto 0.5 X10*3/uL (0.1-1.2); Monocytes Percent Auto 8.4 % (2-11); Neutrophils Absolute Auto 2.8 x10*3/uL (2.0-8.3); Neutrophils Percent Auto 46.2 % (45-73); Platelet Count 148 X10*3/uL (160-400); Red Blood Count 3.96 X10*6/uL (4.60-5.80); Red Cell Distribution Width 11.6 % (11.0-16.0); White Blood Count 6.2 X10*3/uL (4.8-10.8)
[2024-09-05 11:30] LABS: Lithium 0.24 mmol/L (0.60-1.20)
[2024-09-05 11:34] LABS: Valproate 56.2 mcg/mL (50.0-100.0)
[2024-09-05 11:38] LABS: Alanine Aminotransferase 25 U/L (0-40); Albumin Level 3.9 g/dL (3.5-5.0); Alkaline Phosphatase 83 U/L (39-117); Anion Gap 13 (12-20); Aspartate Amino Transferase 24 U/L (5-37); Bilirubin Total 0.2 mg/dL (0.0-1.0); Blood Urea Nitrogen 30 mg/dL (9-16); Calcium 9.3 mg/dL (8.4-10.2); Carbon Dioxide 25 mmol/L (22-29); Chloride 106 mmol/L (96-108); Estimated Glomerular Filt Rate 43; Glucose Random 80 mg/dL (60-115); Potassium 4.5 mmol/L (3.3-5.1); Sodium 139 mmol/L (135-145); Total Protein 6.8 g/dL (6.5-8.0)
[2024-09-05 11:40] LABS: HIV AB/AG Nonreactive (Nonreactive); HIV Num 1 0.08 S/CO (0.00-0.99); Hepatitis B Surface Antigen Negative (Negative); ~HepC Num1 0.14 S/CO (0.00-0.79); ~Hepatitis C Antibody Nonreactive (Nonreactive)
[2024-09-05 11:41] LABS: Syphilis Screen Nonreactive (Nonreactive); Thyroid Stimulating Hormone 4.24 uIU/mL (0.32-4.0)
[2024-09-05 11:49] LABS: Amphetamine Screen Urine Not Detected (Not Detect); Barbiturates, Urine Not Detected (Not Detect); Benzodiazepines Screen Urine Not Detected (Not Detect); Buprenorphine Scr Not Detected (Not Detect); Cannabinoid Screen Urine Not Detected (Not Detect); Cocaine Screen Urine Not Detected (Not Detect); Fentanyl, urine Not Detected (Not Detect); Methadone Screen, Urine Not Detected (Not Detect); Opiate Screen Urine Not Detected (Not Detect); Oxycodone Screen Urine Not Detected (Not Detect); Phencyclidine Screen Urine Not Detected (Not Detect)
[2024-09-05 12:32] LABS: CT PCR NOT DETECTED (Not Detect.); NG PCR NOT DETECTED (Not Detect.)
[2024-09-06 08:13] LABS: LDL Cholesterol Direct 98 mg/dL (<100)
== END 2024-09-05 09:05 | disposition home or self-care (01) ==
LOC: HO.HMGCLDS 09:04
PROVIDERS: PCP Internal Medicine; Referring Provider Psychiatry & Neurology Psychiatry; Visit Provider Internal Medicine
DX: F12.90 Cannabis use, unspecified, uncomplicated (principal); Z79.899 Other long term (current) drug therapy; Z11.3 Encounter for screening for infections with a predominantly sexual mode of transmission; Z72.89 Other problems related to lifestyle
CPT/HCPCS: 36415; 80053; 80164; 80178; 80307; 83721; 84443; 85025; 86780; 86803; 87340; 87389; 87491; 87591

== ENCOUNTER 2024-09-21 09:20 | Outpatient (REF) | payer MEDICARE, MEDICAID, BC, SELFPAY ==
--- OUTSIDE RECORDS SUMMARY | 2024-09-21 09:53 | XMS_ITS ---
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 Generated for Printi ng/Famanuelg/eTransmitting on:?09/21/2024 09:52 AM EDT
--- OUTSIDE RECORDS SUMMARY | 2024-09-21 09:53 | XMS_ITS | Encounter Summary ---
Author Organization [facility], Address [address] [place] [address] Phone Care Team Providers Care Back Digger Operator Name Role Phone Kentrell Van MD Primary Care Provider [phone] Encounter Details Date Type Department Care Team (Late st Contact Info) Description 04/15/2023 Documentation Only [facility] Dr Jake FREITAS [address] [place] [phone] Chon Banks MD [address] [place] [address] [place] [phone] Social History Tobacco Use Types Packs/Day Years [...] Visit [facility] [place] [facility] Dr Jake [address] [place] [phone] Chon Banks MD [address] [place] [address] [place] [address] documented as of this encounter Visit Diagnoses Not on filedocumented in this encounter Care Teams Back Digger Operator Relationship Specialty Start Date End Date Kentrell Van MD LACROSSE CAMERA SUPERVISOR [address] [place] [address] [address] [place], [place] PCP - General Internal Medicine 12/27/22 documented as of this encounter
--- OUTSIDE RECORDS SUMMARY | 2024-09-21 09:53 | XMS_ITS | Clinical Summary ---
Author Organization [facility] Address [address] [place] [address] Care Team Providers Care Nurse Charge Rn Name Role Phone Unavailable Primary Care Provider Unavailabl e Allergies No known active allergies Medications haloperidol (HALDOL) 5 MG tablet Take 1 [...] by mouth every morning after breakfast. Active emtricitabine-teno fovir (TRUVADA) 200-300 mg per tablet Take 1 [...] daily as needed for erectile dysfunction. Active budesonide-formote rol (SYMBICORT) 160-4.5 MCG/ACT inhaler Inhale 2 puffs daily as needed (shortness of breath). Active mupirocin (BACTROBAN) 2 % ointmentIndication s:Carbuncle of neck Apply topically 3 (three) times a day. 30 g 05/02/20 Active nicotine (NICODERM CQ) 21 MG/24HR patchIndications:S moking Place 1 patch on the skin daily. 30 patch 05/03/20 Active Active Problems Problem Noted Date Diagnosed Date Abiodun angina 05/02/2024 Smoking 05/02/2024 Social History Tobacco Use Types Packs/Day Years Used Date Smoking Tobacco: Never Assessed [facility] Utilities Answer Date Recorded In the past 12 months has [employer], [employer], [employer], or water [employer] threatened to shut off services in your home? No 05/02/2024 Hunger Vital Sign Answer Date Recorded Within the past 12 months, y ou worried that your food would run out before you got the money to buy more. Never true 05/02/20 Within the past 12 months, t he [...] any time in the past 12 m [facility], were you homeless or living in a [place] health care facility (including now)? No 05/02/2024 Sex and Gender Information Value Date Recorded Sex Assigned at Male 05/01/2024 9:17 PM EST Legal Sex Male 6:24 PM EST Gender Identity Male 05/01/2024 9:17 [...] <30 copies/m L 05/09/2024 12:40 PM EST [facility] HIV-1 RNA (log10) Not Detected <1.46 log copies/m L 05/09/2024 12:40 PM EST [facility] Interpretation Not Detected 05/09/20 12:40 PM EST [facility] Comment:Performed by FDA nathalie roved [employer]ptima TMA. Linear range is 30 to 10,000,000 copies/mL. HIV Genotyping is not recommended for viral loads below 2,000 copies/mL. Not FDA approved to diagnose HIV infection. Blood Plasma specimen / Unknown 05/02/2024 11:20 AM EST 05/02/2024 11:46 AM EST us Erick Alva MD LAB BLOOD ORDERABLES Final R esult [facility] [address] from Last 3 Months or Most Recently Relevant to Health Maintenance Insurance MEDICARE PART A & B [facility] Advance Directives * Full Code (Latest Code Status on File) Date Activated Date Inactivated Comments 05/02/2024 12:44 AM Healthcare Agents on File Name Relationship Healthcare [facility] Javier Steffany Plenary guardian 3. Plenary Guardian
--- OUTSIDE RECORDS SUMMARY | 2024-09-21 09:53 | XMS_ITS | Encounter Summary ---
Author Organization [facility] [place], Address [address] [place] [address] Phone Care Team Providers Care Wardrobe Specialty Worker Name Role Phone Kentrell Van MD Primary Care Provider [phone] Encounter Details Date Type Department Care Team (Late st Contact Info) Description 04/15/2023 Documentation Only [facility] Dr Jake FREITAS [address] [place] [phone] Chon Banks MD [address] [place] [address] [place] [phone] Social History Tobacco Use Types Packs/Day Years [...] Visit [facility] [place] Dr Jake F[address] [place] [phone] Chon Banks MD [address] [place] [address] [place] [address] documented as of this encounter Visit Diagnoses Not on filedocumented in this encounter Care Teams Wardrobe Specialty Worker Relationship Specialty Start Date End Date Kentrell Van MD [place] CREPE MACHINE OPERATOR [address] [place] [address] [address] [place], [place] PCP - General Internal Medicine 12/27/22 documented as of this encounter
--- OUTSIDE RECORDS SUMMARY | 2024-09-21 09:53 | XMS_ITS | Clinical Summary ---
Author Organization [facility] [place], Address [address] [place] [address] 1 [place] [address] Phone Care Team Providers Care Mitten Sewer Name Role Phone Kentrell Van MD Primary Care Provider [phone] Allergies Active Allergy Reactions Criticality Noted Date [...] 1 Refills, Soft Stop, 04/14/22 10:51:00 EST, [id number], 190, cm, 01/12/22 15:25:00 EDT, Height, 113.64, [...] day in the evening 3 Active Multiple Vitamins-[place]ron[place] als (CENTRUM ADULT PO) Take by mouth Active [place]-3 Fatty Acids (FISH OIL PO) Take by mouth Active sildenafil (VIAGRA) 100 MG tablet Take 100 mg by mouth 1 (one) time each day if needed for erectile dysfunction Active Active Problems Problem Noted Date Diagnosed Date Stage 3a chronic kidney disease 01/11/2023 [place] adverse reaction 01/11/2023 Essential (primary) hypertension 01/11/2023 Immunizations Immunization Administration Dates Next Due Hepatitis B 06/15/2000,05/11/2000 [...] Visit [facility] [place], [place] - [address] [phone] Chon Banks MD [address] [place] [address] [place] [address] Health Maintenance Due Date Last Done Comments Hepatitis B Vaccine (3 of 3 - 3-dose series) 08/31/2000 06/15/2000, 05/11/2000 Pneumococcal Vaccine: Peds ( 0 to 5 Years) and At-Risk Patients (6 to 49 Years) (2 of 2 - PCV) 01/11/2018 01/11/2017 Influenza Vaccine (Season Ended) 2025 02/24/2022, 02/20/2021, 04/07/2020, Additional history exists Insurance Medicare [facility] Medicaid [place] Care Teams Mitten Sewer Relationship Specialty Start Date End Date Kentrell Van MD [place] TIMBER RIDER [address] [place] [address] PCP - General Internal Medicine 12/27/22
--- OUTSIDE RECORDS SUMMARY | 2024-09-21 09:53 | XMS_ITS | Encounter Summary ---
Author Organization [facility] Address [address] [place] [address] Phone Care Team Providers Care Canvassing Manager Name Role Phone Kentrell Van MD Primary Care Provider [phone] Encounter Details Date Type Department Care Team (Late st Contact Info) Description 10/10/2023 Documentation Only [facility] [address] [place] [address] Gita Burnett [address] [place] [phone] Social History Tobacco Use Types Packs/Day [...] Visit [facility] Dr Jake FREITAS [address] [place] [phone] Chon Banks MD [address] [place] [address] [place] [address] documented as of this encounter Visit Diagnoses Not on filedocumented in this encounter Care Teams Canvassing Manager Relationship Specialty Start Date End Date Kentrell Van MD [place] WOOD CRAFTSMAN [address] [place] [address] [address] [place], [place] PCP - General Internal Medicine 12/27/22 documented as of this encounter
--- OUTSIDE RECORDS SUMMARY | 2024-09-21 09:53 | XMS_ITS ---
Author Organization [facility] Address [address] [facility] [place] [address] Care Team Providers Care Striping Machine Operator Name Role Phone Kentrell Van MD Primary Care Provider Unavailabl e David, Deja Unavailable [phone] REASON FOR VISIT cx appt 08/01/24 Encounters Encounter Location Date Provider Diagnosis [facility] [address] [facility] [place] [address] 07/03/2024 Deja Black Plan Of Treatment No Information Progress Notes * Marko MATTHEWOB:1990 ( 34 yo M)Acc No.[id number]:07/03/2024 Patient:?Garrick MATTHEW :1990???Age:34 Y???Sex:Male Address:[address] [place] [address] * true * Date:? Generated for Printi ng/Famanuelg/eTransmitting on:?09/21/2024 09:53 AM EDT
--- OUTSIDE RECORDS SUMMARY | 2024-09-21 09:53 | XMS_ITS | Encounter Summary ---
Author Organization [facility] [place], Address [address] [place] [address] Phone Care Team Providers Care Finger Buffs Assembler Name Role Phone Kentrell Van MD Primary Care Provider [phone] Encounter Details Date Type Department Care Team (Late Contact Info) Description 01/11/2023 Office Communication [facility] [address] [place] [address] Chon Banks MD [address] [place] [address] [place] [address] Social History Tobacco Use Types [...] Visit [facility] [address] [place] [phone] Chon Banks MD [address] [place] [address] [place] [address] documented as of this encounter Visit Diagnoses Not on filedocumented in this encounter Care Teams Finger Buffs Assembler Relationship Specialty Start Date End Date Kentrell Van MD ELVERTA ATHLETE MANAGER [address] [place] [address] [place] [address] PCP - General Internal Medicine 12/27/22 documented as of this encounter
--- OUTSIDE RECORDS SUMMARY | 2024-09-21 09:53 | XMS_ITS ---
Author Organization [facility] Address [address] [place] [address] [place] [address] Care Team Providers Care Ladder Operator Name Role Phone Kentrell Van MD Primary Care Provider UnavailDeja Benson [phone] Encounters Encounter Location Date Provider Diagnosis [address] [place] [address] 08/01/2024 Deja Hernandez Plan Of Treatment No Information Progress Notes * Emily MATTHEWPollyOB:1990 ( 34 yo M)Acc No.[id number]:08/01/2024 Progress Notes Patient:?Garrick MATTHEW Provider:?Deja Hernandez DPM :1990???Age:34 Y???Sex:Male Ricardo e:08/01/2024 Address:[address] [id number] Pcp:Kentrell Van MD Subjective: * Chief Complaints: [...] Hernandez DPM Date:?2024 Generated for Rian quevedo/Trena/eTransmitting on:?09/21/2024 09:52 AM EDT
--- OUTSIDE RECORDS SUMMARY | 2024-09-21 09:53 | XMS_ITS | Patient Health Record ---
Author Organization [facility] Address [address] [facility] [place] [address] Care Team Providers Care Scheduling Representative Name Role Phone Carlota ROJO, Kentrell Primary Care Provider Deja Hernandez [phone] Reason For Referral No Information Encounters Encounter Location Date Provider [facility] [address] [place] [address] 06/18/2024 Deja Hernandez [address] [address] 07/03/2024 Deja Hernandez Plan Of Treatment No Information Insurance Providers Payer Name Payer Address Payer Phone Subscriber Number Group Number Insured Name Patient Relationship to Insured Coverage Start Date Coverage End Date Medicare [facility] [address] [place] [address] [id number] Garrick Jeter Self - patient is the insured [facility] [address] [place] [address] [id number] Garrick Jeter Self - patient is the insured
[2024-09-21 09:56] LABS: Ammonia 54 umol/L (13-55)
[2024-09-21 10:01] LABS: Valproate 67.3 mcg/mL (50.0-100.0)
[2024-09-21 10:10] LABS: Alanine Aminotransferase 17 U/L (0-40); Albumin Level 3.9 g/dL (3.5-5.0); Alkaline Phosphatase 77 U/L (39-117); Anion Gap 12 (12-20); Aspartate Amino Transferase 16 U/L (5-37); Bilirubin Total 0.3 mg/dL (0.0-1.0); Blood Urea Nitrogen 32 mg/dL (9-16); Calcium 9.6 mg/dL (8.4-10.2); Carbon Dioxide 27 mmol/L (22-29); Chloride 107 mmol/L (96-108); Estimated Glomerular Filt Rate 42; Glucose Random 75 mg/dL (60-115); Potassium 5.3 mmol/L (3.3-5.1); Sodium 141 mmol/L (135-145); Total Protein 6.8 g/dL (6.5-8.0)
== END 2024-09-21 09:21 | disposition home or self-care (01) ==
LOC: HO.LAB 09:20
PROVIDERS: PCP Internal Medicine; Visit Provider Psychiatry & Neurology Psychiatry
DX: Z79.899 Other long term (current) drug therapy (principal)
CPT/HCPCS: 36415; 80053; 80164; 82140

== ENCOUNTER 2024-09-26 08:49 | Outpatient (REF) | payer MEDICARE, MEDICAID, BC, SELFPAY ==
--- OUTSIDE RECORDS SUMMARY | 2024-09-26 09:22 | XMS_ITS | Encounter Summary ---
Author Organization [facility] [place], Address [address] [place] [address] Phone Care Team Providers Care Mastic Sprayer Name Role Phone Kentrell Van MD Primary Care Provider [phone] Encounter Details Date Type Department Care Team (Late Contact Info) Description 01/11/2023 Office Communication [facility] [address] 1 [place] [address] Chon Banks MD [address] [place] [address] [place] [address] Social History Tobacco Use Types [...] Visit [facility] [address] [place] [phone] Chon Banks MD [address] [place] [address] [place] [address] documented as of this encounter Visit Diagnoses Not on filedocumented in this encounter Care Teams Mastic Sprayer Relationship Specialty Start Date End Date Kentrell Van MD [place] GARAGE HELPER [address] [place] [address] [place] [address] PCP - General Internal Medicine 12/27/22 documented as of this encounter
--- OUTSIDE RECORDS SUMMARY | 2024-09-26 09:22 | XMS_ITS | Patient Health Record ---
Author Organization [facility] Address [address] [facility] [place] [address] Care Team Providers Care Hot Roller Name Role Phone Carlota ROJO, Kentrell Primary Care Provider Deja Hernandez [phone] Reason For Referral No Information Encounters Encounter Location Date Provider [facility] [address] [place] [address] 06/18/2024 Deja Hernandez [address] [address] 07/03/2024 Deja Hernandez Plan Of Treatment No Information Insurance Providers Payer Name Payer Address Payer Phone Subscriber Number Group Number Insured Name Patient Relationship to Insured Coverage Start Date Coverage End Date Medicare National [facility] [address] [place] [address] [id number] Garrick Jeter Self - patient is the insured [facility] [address] [place] [address] [id number] Garrick Jeter Self - patient is the insured
--- OUTSIDE RECORDS SUMMARY | 2024-09-26 09:22 | XMS_ITS ---
Author Organization [facility] Address [address] [place] [address] [place] [address] Care Team Providers Care Power System Operator Name Role Phone Kentrell Van MD Primary Care Provider UnavailDeja Benson [phone] Encounters Encounter Location Date Provider Diagnosis [address] [place] [address] 08/01/2024 Deja Hernandez Plan Of Treatment No Information Progress Notes * Emily MATTHEWPollyOB:1990 ( 34 yo M)Acc No.[id number]:08/01/2024 Progress Notes Patient:?Garrick MATTHEW Provider:?Deja Hernandez DPM :1990???Age:34 Y???Sex:Male Ricardo e:08/01/2024 Address:[address] [place] Pcp:Kentrell Van MD Subjective: * Chief Complaints: [...] Hernandez DPM Date:?2024 Generated for Rian quevedo/Trena/eTransmitting on:?09/26/2024 09:22 AM EDT
--- OUTSIDE RECORDS SUMMARY | 2024-09-26 09:23 | XMS_ITS | Encounter Summary ---
Author Organization [facility] Address [address] [place] [address] Phone Care Team Providers Care Sugar Controller Name Role Phone Kentrell Van MD Primary Care Provider [phone] Encounter Details Date Type Department Care Team (Late st Contact Info) Description 10/10/2023 Documentation Only [facility] [address] [place] [address] Gita Burnett [address] [place] [phone] Social History Tobacco Use Types Packs/Day [...] Visit [facility] Dr Jake FREITAS [address] [place] [phone] Chon Banks MD [address] [place] [address] [place] [address] documented as of this encounter Visit Diagnoses Not on filedocumented in this encounter Care Teams Sugar Controller Relationship Specialty Start Date End Date Kentrell Van MD [place]/TRACK AND FIELD COACH [address] [place] [address] [address] [place], [place] PCP - General Internal Medicine 12/27/22 documented as of this encounter
--- OUTSIDE RECORDS SUMMARY | 2024-09-26 09:23 | XMS_ITS | Encounter Summary ---
Author Organization [facility] [place], Address [address] [place] [address] Phone Care Team Providers Care Well Logging Captain Name Role Phone Kentrell Van MD Primary Care Provider [phone] Encounter Details Date Type Department Care Team (Late st Contact Info) Description 04/15/2023 Documentation Only [facility] Dr Jake FREITAS [address] [place] [phone] Chon Banks MD [address] [place] [address] [place] [phone] Social History Tobacco Use Types Packs/Day Years [...] Visit [facility] Dr Jake [address] [place] [phone] Chon Banks MD [address] [place] [address] [place] [address] documented as of this encounter Visit Diagnoses Not on filedocumented in this encounter Care Teams Well Logging Captain Relationship Specialty Start Date End Date Kentrell Van MD [place] MANAGER LINE [address] [place] [address] [address] [place], [place] PCP - General Internal Medicine 12/27/22 documented as of this encounter
--- OUTSIDE RECORDS SUMMARY | 2024-09-26 09:23 | XMS_ITS ---
Author Organization [facility] Address [address] [facility] [address] Care Team Providers Care Vice President Of Compliance Name Role Phone Kentrell Van MD Primary Care Provider Unavailelizabeth e David, Deja Unavailable [phone] REASON FOR VISIT DATA CLERK Encounters Encounter Location Date Provider Diagnosis [facility] [address] [facility] [place] [address] 06/18/2024 Dejajose Hernandez Plan Of Treatment No Information Progress Notes * Marko JETEROB:1990 ( 34 yo M)Acc No.[id number]:06/18/2024 Patient:?Garrick JETER :1990???Age:34 Y???Sex:Male Address:[address] [place] [address] * true * Date:? Generated for Printi ng/Famanuelg/eTransmitting on:?09/26/2024 09:22 AM EDT
--- OUTSIDE RECORDS SUMMARY | 2024-09-26 09:23 | XMS_ITS | Encounter Summary ---
Author Organization [facility] [place], Address [address] [place] [address] Phone Care Team Providers Care It Assistant Name Role Phone Kentrell Van MD Primary Care Provider [phone] Encounter Details Date Type Department Care Team (Late st Contact Info) Description 04/15/2023 Documentation Only [facility] Dr Jake FREITAS [address] [place] [phone] Chon Banks MD [address] [place] [address] [place] [phone] Social History Tobacco Use Types Packs/Day Years [...] [facility] Dr Jake [address] [place] [phone] Chon Banks MD [address] [place] [address] [place] [address] documented as of this encounter Visit Diagnoses Not on filedocumented in this encounter Care Teams It Assistant Relationship Specialty Start Date End Date Kentrell Van MD [place] INFORMATICIST [address] [place] [address] [address] [place], [place] PCP - General Internal Medicine 12/27/22 documented as of this encounter
--- OUTSIDE RECORDS SUMMARY | 2024-09-26 09:23 | XMS_ITS | Clinical Summary ---
Author Organization [facility] [place], Address [address] [place] [address] 1 [place] [address] Phone Care Team Providers Care Pony Cylinder Press Operator Name Role Phone Kentrell Van MD Primary Care Provider [phone] Allergies Active Allergy Reactions Criticality Noted Date [...] 1 Refills, Soft Stop, 04/14/22 10:51:00 EST, [facility][id number], 190, cm, 01/12/22 15:25:00 EDT, Height, 113.64, [...] day in the evening 3 Active Multiple Vitamins-[place] als (CENTRUM ADULT PO) Take by mouth Active [place]-3 Fatty Acids (FISH OIL PO) Take by mouth Active sildenafil (VIAGRA) 100 MG tablet Take 100 mg by mouth 1 (one) time each day if needed for erectile dysfunction Active Active Problems Problem Noted Date Diagnosed Date Stage 3a chronic kidney disease 01/11/2023 [place] adverse reaction 01/11/2023 Essential (primary) hypertension 01/11/2023 [...] Visit [facility] [place], [place] - [address] [address] Chon Banks MD [address] [place] [address] [place] [address] Health Maintenance Due Date Last Done Comments Hepatitis B Vaccine (3 of 3 - 3-dose series) 08/31/2000 06/15/2000, 05/11/2000 Pneumococcal Vaccine: Peds ( 0 to 5 Years) and At-Risk Patients (6 to 49 Years) (2 of 2 - PCV) 01/11/2018 01/11/2017 Influenza Vaccine (Season Ended) 2025 02/24/2022, 02/20/2021, 04/07/2020, Additional history exists Insurance Medicare [facility] Medicaid [place] Care Teams Pony Cylinder Press Operator Relationship Specialty Start Date End Date Kentrell Van MD [place] E[employer]RICAL [employer] INSTRUMENTATION SUPERVISOR [address] [place] [address] PCP - General Internal Medicine 12/27/22
--- OUTSIDE RECORDS SUMMARY | 2024-09-26 09:23 | XMS_ITS ---
Author Organization [facility] Address [address] [place] [address] Care Team Providers Care Home Restoration Service Cleaner Name Role Phone Kentrell Van MD Primary Care Provider Unavailabl e David, Deja Unavailable [phone] REASON FOR VISIT cx appt 08/01/24 Encounters Encounter Location Date Provider Diagnosis [facility] [address] [facility] [place] [address] 07/03/2024 Deja Black Plan Of Treatment No Information Progress Notes * Marko MATTHEWOB:1990 ( 34 yo M)Acc No.[id number]:07/03/2024 Patient:?Garrikc MATTHEW :1990???Age:34 Y???Sex:Male Address:[address] [place] [address] * true * Date:? Generated for Printi ng/Famanuelg/eTransmitting on:?09/26/2024 09:23 AM EDT
--- OUTSIDE RECORDS SUMMARY | 2024-09-26 09:23 | XMS_ITS | Clinical Summary ---
Author Organization [facility] Address [address] [place] [address] Care Team Providers Care Application Chemist Name Role Phone Unavailable Primary Care Provider [...] Years Used Date Smoking Tobacco: Never Assessed [facility] Utilities Answer Date Recorded In the past 12 months has [employer], [employer], [employer], or water [employer] threatened to shut off services in your [...] any time in the past 12 m [facility], were you homeless or living in a half-way (including now)? No 05/02/2024 Sex and Gender [...] <30 copies/m L 05/09/2024 12:[address] [facility] HIV-1 RNA (log10) Not Detected <1.46 log copies/m L 05/09/2024 12:[address] [facility] Interpretation Not Detected 05/09/20 12:[address] [facility] Comment:Performed by FDA nathalie roved [employer] Aptima TMA. Linear range is 30 to 10,000,000 copies/mL. HIV Genotyping is not recommended for viral loads below 2,000 copies/mL. Not FDA approved to diagnose HIV infection. Blood Plasma specimen / Unknown 05/02/2024 11:20 AM EST 05/02/2024 11:46 AM EST us Erick Alva MD LAB BLOOD ORDERABLES Final R esult [facility] [address] from Last 3 Months or Most Recently Relevant to Health Maintenance Insurance MEDICARE PART A & B [facility] Advance Directives * Full Code (Latest Code Status on File) Date Activated Date Inactivated Comments 05/02/2024 12:44 AM Healthcare Agents on File Name Relationship Healthcare Agent [facility] Communication Javier Steffany Plenary guardian 3. Plenary Guardian
[2024-09-26 10:54] LABS: Anion Gap 16 (12-20); Carbon Dioxide 24 mmol/L (22-29); Chloride 104 mmol/L (96-108); Potassium 4.7 mmol/L (3.3-5.1); Sodium 139 mmol/L (135-145)
== END 2024-09-26 08:50 | disposition home or self-care (01) ==
LOC: HO.HMGCLDS 08:49
PROVIDERS: PCP Internal Medicine; Visit Provider Psychiatry & Neurology Psychiatry
DX: E87.5 Hyperkalemia (principal)
CPT/HCPCS: 36415; 80051

== ENCOUNTER 2024-11-07 11:49 | Outpatient (REF) | payer MEDICARE, MEDICAID, BC, SELFPAY ==
--- OUTSIDE RECORDS SUMMARY | 2024-11-07 12:32 | XMS_ITS | Encounter Summary ---
Author Organization [facility] Address [address] [place] [address] Phone Care Team Providers Care Senior Mobile Developer Name Role Phone Kentrell Van MD Primary Care Provider [phone] Encounter Details Date Type Department Care Team (Late st Contact Info) Description 10/10/2023 Documentation Only [facility] [address] [place] [address] Gita Burnett [address] [place] [phone] Social History Tobacco Use Types Packs/Day Years Used Date Smoking Tobacco: Never Assessed Sex and Gender Information Value Date Recorded Sex Assigned at Not on file Legal Sex Male 1:21 PM EDT Gender Identity Not on file Sexual Orientation Not on file documented as of this encounter Plan of Treatment Upcoming Encounters Date Type Department Care Team (Late st Contact Info) Description 04/08/2025 2:30 PM EST Office Visit [facility] Sg Dr Jake FRE[place] [address] [place] [phone] Chon Banks MD [address] [place] [address] [place] [address] documented as of this encounter Visit Diagnoses Not on filedocumented in this encounter Care Teams Senior Mobile Developer Relationship Specialty Start Date End Date Kentrell Van MD [place] [employer] [address] [place] [address] [address] [place], [place] PCP - General Internal Medicine 12/27/22 documented as of this encounter
[2024-11-07 13:44] LABS: Alanine Aminotransferase 16 U/L (0-40); Aspartate Amino Transferase 16 U/L (5-37); Blood Urea Nitrogen 21 mg/dL (9-16); Estimated Glomerular Filt Rate 35
[2024-11-07 13:59] LABS: Thyroid Stimulating Hormone 1.52 uIU/mL (0.32-4.0)
== END 2024-11-07 11:50 | disposition home or self-care (01) ==
LOC: HO.HMGCLDS 11:49
PROVIDERS: PCP Internal Medicine; Visit Provider Psychiatry & Neurology Psychiatry
DX: Z79.899 Other long term (current) drug therapy (principal)
CPT/HCPCS: 36415; 82565; 84443; 84450; 84460; 84520

== ENCOUNTER 2025-02-25 09:01 | Outpatient (REF) | payer MEDICARE, BC, MEDICAID, SELFPAY ==
--- OUTSIDE RECORDS SUMMARY | 2024-08-01 04:30 | XMS_ITS ---
Author Organization [facility] jenelle [place] Address [address] [facility] [place] [address] Care Team Providers Care Healthcare Administrator Name Role Phone Kentrell Van MD Primary Care Provider UnavailDeja Benson [phone] Encounters Encounter Location Date Provider Diagnosis [address] [place] [address] 08/01/2024 Deja Hernandez Plan Of Treatment No Information Progress Notes * Marko MATTHEWOB:1990 ( 34 yo M)Acc No.[id number]:08/01/2024 Progress Notes Patient: Garrick STOUT Provider: Mike Hernandez DPM :1990 A ge:34 Y S ex:Male Date:08/01/2024 Address:[address] [phone] Pcp:Kentrell Van MD Subjective: * Chief Complaints: * * Medical History: Objective: * Vitals: Assessment: Plan: * Treatment: * Images: * The named appointment provid er may or may not be the originator of this progress note, and it is not deemed complete until electronically signed by the appointment provider. Sign off status: Pending * Provider: Mike Hernandez DPM Date: 08/01/2024 Generated for Rian quevedo/Trena/eTransmitting on: 0 02/25/2025 10:35 AM EDT
[2025-02-25 10:26] LABS: MANUAL DIFF FLAG NO
[2025-02-25 10:33] LABS: Hematocrit 35.8 % (42.0-52.0); Hemoglobin 12.7 g/dl (14.0-18.0); Imm Gran Abs Auto 0.01 X10*3/uL (0.00-0.03); Imm Gran Pct Auto 0.2 % (0.0-0.4); Lymphocytes Absolute Auto 1.9 X10*3/uL (1.2-4.9); Mean Corpuscular HGB Conc 35.5 g/dl (31.0-36.0); Mean Corpuscular Hemoglobin 35.8 pg (27.0-33.0); Mean Corpuscular Volume 100.8 fL (80.0-98.0); NRBC Abs Auto 0.000 X10*3/uL (0.0-0.012); NRBC Pct Auto 0.0 /100WBC (0.0-0.2); Platelet Count 128 X10*3/uL (160-400); Red Blood Count 3.55 X10*6/uL (4.60-5.80); White Blood Count 4.3 X10*3/uL (4.8-10.8)
--- OUTSIDE RECORDS SUMMARY | 2025-02-25 10:36 | XMS_ITS | Clinical Summary ---
Author Organization [facility] Address [address] [address] Phone Care Team Providers Care Marketing Specialist Name Role Phone Kentrell Van MD Primary Care Provider [phone] Tj Membreno MD Unavailable Unavai lable Allergies Active Allergy Reactions Criticality Noted Date Comments Banana 04/15/2023 Other reaction(s): tested with positive allergy Fluticasone 10/13/2017 Fluticasone Propion-Salmeterol 11/22/2023 Other Reaction(s): throat closed up Ziprasidone Hcl 10/13/2017 Ibuprofen Other (See Comments) 11/22/2023 Elevates [place] level Nut Flavor Anaphylaxis High 11/22/2023 [place] Anaphylaxis High 11/22/2023 Quetiapine 10/13/2017 Carbamazepine 10/13/2017 Tree Nuts 08/29/2023 Medications allopurinol (ZYLOPRIM) 100 MG tablet Take 100 mg by mouth daily. Active emtricitabine-t enofovir DF (TRUVADA) 200-300 mg per tablet Take 1 tablet by mouth daily. Active cariprazine (VRAYLAR) 3 mg capsule Take 1.5 mg by mouth daily. Active montelukast (SINGULAIR) 10 mg tablet Take 10 mg by mouth nightly. Active clonazePAM (KLONOPIN) 0.5 MG tablet Take 0.5 mg by mouth daily. And as needed Active lithium (LITHOBID) 300 MG ER tablet Take 450 mg by mouth daily. Active metformin HCl (METFORMIN ORAL) Take 500 mg by mouth 2 (two) times a day. Active esomeprazole (NEXIUM) 20 MG capsule Take 40 mg by mouth daily before breakfast. Active loratadine (WAL-ITIN ORAL) Take 10 mg by mouth. Active guanFACINE (INTUNIV) 4 mg Tb24 Take by mouth daily. Active cloZAPine (CLOZARIL) 25 MG tablet Take 12.5 mg by mouth nightly. Active clonazePAM (KLONOPIN) 0.5 MG tablet 0.25 mg daily as needed for anxiety. As extra for increased anxiety Active albuterol 90 mcg/actuation inhaler Inhale 2 puffs into the lungs 2 (two) times a day as needed for wheezing. Active EPINEPHrine (ADRENALIN) 1 mg/mL Soln once as needed. Act mikala perphenazine (TRILAFON) 8 MG tablet Take 8 mg by mouth 2 (two) times a day. Active hydrOXYzine (ATARAX) 25 MG tablet Take 25 mg by mouth 3 (three) times a day as needed for itching. Active multivitamin per tablet Take by mouth. Acti ve SYMBICORT 160-4.5 mcg/actuation inhaler INHALE 1 TO 2 PUFFS BY MOUTH EVERY 4 TO 6 HOURS NEEDED FOR SHORTNESS OF BREATH OR COUGH OR WHEEZING. DO NOT EXCEED 12 PUFFS IN 24 HOURS 4 Active cloNIDine HCL (CATAPRES) 0.1 MG tablet Take 0.1 mg by mouth 2 (two) times a day. Active eszopiclone (LUNESTA) 3 mg tablet TAKE 1 TABLET BY MOUTH DAILY IMMEDIATELY BEFORE BEDTIME Active haloperidoL (HALDOL) 5 MG tablet 5mg am, 10mg mid day, 5mg at night and as needed 4 Active divalproex (DEPAKOTE) [address] tablet 750mg TID 4 Active sildenafiL (VIAGRA) 100 mg tablet Take 100 mg by mouth daily as needed. Active acetaminophen (TYLENOL) 325 mg tablet Take 2 tablets (650 mg total) by mouth every 4 (four) hours as needed. 4 Active ibuprofen (ADVIL,MOTRIN) 200 MG tablet Take 2 tablets (400 mg total) by mouth every 6 (six) hours as needed for pain (specific location in comments). 4 Active Additional Information Patient not taking.Reported on 11/22/2023 docusate sodium (COLACE) 100 MG capsule Take 1 capsule (100 mg total) by mouth 2 (two) times a day. Active Additional Information Patient not taking.Reported on 12/06/2023 senna (SENOKOT) 8.6 mg tablet Take 1 tablet by mouth 2 (two) times a day. Active Additional Information Patient not taking.Reported on 12/06/2023 Active Problems No known active problems Social History Tobacco Use Types Packs/Day Years Used Date Smoking Tobacco: Every Day Cigarettes Smokeless Tobacco: Never Tobacco Cessation:Ready to Q uit: Not Asked; Counseling Given: Not Answered Alcohol Use Standard Drinks/Week Comments Yes 0 (1 standard drink = 0.6 oz pur e alcohol) Education Answer Date Recorded Are you interested in more education? Not on allison e 10/01/2022 Are you concerned about learning? Not on file 10/01/2022 No 10/01/2022 No 10/01/2022 Digital Access Answer Date Recorded No 10/29/2022 No 10/29/2022 Reliable internet access at home? Not on file 10/29/2022 Device with a working camera? Not on file Sex and Gender Information Value Date Recorded Sex Assigned at Male 10/13/2017 2:03 PM EDT Legal Sex Male 9:05 PM EDT Gender Identity Male 10/13/2017 2:03 PM EDT Sexual Orientation Lesbian or Hutchins 10/13/2017 2: 03 PM EDT Last Filed Vital Signs Vital Sign Reading Time Taken Comments Blood Pressure 126/74 12/20/2023 3:18 PM EDT Pulse 88 12/20/2023 3:18 PM EDT Temperature 36.4 C (97.5 F) 12/20/2023 3:18 PM EDT Respiratory Rate 20 11/07/2023 10:30 AM EDT Oxygen Saturation 97% 12/20/2023 3:18 PM EDT Inhaled Oxygen Concentration - - Weight 106.6 kg (235 lb) 10/26/2023 1:31 PM EDT Height 190.5 cm (6' 3 ) 10/26/2023 1:31 PM EDT Body Mass Index 29.37 10/26/2023 1:31 PM EDT Plan of Treatment Health Maintenance Due Date Last Done Comments LIPID PANEL 1989 DEPRESSION SCREENING 2001 SMOKING Hx and SMOKELESS TOBACCO SCREENING 2002 HEPATITIS C SCREENING 2007 HIV ONE-TIME SCREENING (18-65 YEARS) 2007 ABSOLUTE NEUTROPHIL COUNT (ANC) 05/15/2019 04/17/2019, 07/24/2018 CREATININE LEVEL 04/17/2020 04/17/2019, , 07/24/2018 SCREENING FOR DIABETES 2024 04/17/2019 LITHIUM LEVEL 09/18/2024 09/19/2023, 07/07, 07/24/2018 TSH LEVEL 09/18/2024 09/19/2023 VALPROIC ACID (DEPAKENE) LEVEL 09/18/2024 09/19/2023 INFLUENZA VACCINE (#1) 2025 , 02/24/2022, 02/20/2021, Additional history exists COVID-19 VACCINE ( season) 2025 02/21/2023, 10/14/2022, 02/24/2022, Additional history exists Adult Td,Tdap Booster 09/28/2025 09/29/2015, 000 PNEUMOCOCCAL VACCINES (0-49 years) Completed 02/18/2023 HEPATITIS A VACCINES Aged Out No long er eligible based on patient's age to complete this topic HIB VACCINES Aged Out No longer eligi ble based on patient's age to complete this topic MENINGOCOCCAL VACCINES (ACWY) Aged Out No longer eligible based on patient's age to complete this topic MENINGOCOCCAL VACCINES (B) Aged Out N o longer eligible based on patient's age to complete this topic Medical Devices Not on file Procedures Procedure Name Priority Date/Time Associated Diagnosis Comments VALPROIC ACID Routine 09/19/2023 10:16 AM EDT Bipolar affective disorder, remission status unspecified Encounter for long-term (current) use of other medications TSH Routine 09/19/2023 10:16 AM EDT Bipolar affective disorder, remission status unspecified Encounter for long-term (current) use of other medications LITHIUM LEVEL Routine 09/19/2023 10:16 AM EDT Bipolar affective disorder, remission status unspecified Encounter for long-term (current) use of other medications HC BLOOD COUNT COMPLETE AUTO&AUTO DIFRNTL WBC Routine 04/17/2019 8:45 AM EST Gastroesophageal reflux disease, esophagitis presence not specified Liver dysfunction COMPREHENSIVE METABOLIC PANEL Routine 04/17/2019 8:45 AM EST Gastroesophageal reflux disease, esophagitis presence not specified Liver dysfunction from Last 3 Months or Most Recently Relevant to Health Maintenance Results * TSH (09/19/2023 10:16 AM EDT) TSH 0.91 0.27 - 4.20 uIU/mL [facility] Blood 09/19/2023 10:1 6 AM EDT 09/19/2023 10:20 AM EDT us Yelitza Meyers MD LAB BLOOD ORDERABL ES Final Result Performing Organization Address City/[facility]/ZIP Co de Phone Number [address] [address] * [place] level (09/19/2023 10:16 AM EDT) LITHIUM 0.55 0.5 - 1.00 mmol/L [facility] Blood 09/19/2023 10:1 6 AM EDT 09/19/2023 10:20 AM EDT us Yelitza Meyers MD LAB BLOOD ORDERABL ES Final Result Performing Organization Address City/[facility]/ZIP Co de Phone Number [address] [address] * Valproic acid (09/19/2023 10:16 AM EDT) VALPROIC ACID 62.7 50.0 - 100.0 ug/mL [facility] Blood 09/19/2023 10:1 6 AM EDT 09/19/2023 10:20 AM EDT us Yelitza Meyers MD LAB BLOOD ORDERABL ES Final Result [address] [address] * (ABNORMAL) Comprehensive metabolic panel (04/17/2019 8:45 AM EST) Pathologist [facility] SODIUM 140 133 - 146 mmol/L [facility] POTASSIUM 4.5 3.3 - 5.1 mmol/L [facility] CHLORIDE 102 96 - 108 mmol/L [facility] CO2 25 21 - 35 mmol/L [facility] BUN 16 6 - 19 mg/dL [facility] CREATININE 1.00 0.5 - 1.5 mg/dL [facility] GLUCOSE 105(H) 70 - 99 mg/dL [facility] ALBUMIN 4.4 3.9 - 4.8 g/dL [facility] TOTAL PROTEIN 7.8 6.5 - 8.0 g/dL [facility] CALCIUM 10.2 8.4 - 10.3 mg/dL [facility] ALKALINE PHOSPHATASE 111 39 - 117 U/L [facility] TOTAL BILIRUBIN 0.4 0.0 - 1.2 mg/dL [facility] AST 19 0 - 37 U/L [facility] ALT 16 0 - 40 U/L [facility] GLOBULIN 3.4 1 - 4.8 g/dL [facility] EGFR 101 >59 mL/min/1.7 3m2 [facility] Comment:If patient is black, multiply result by 1.159. Estimated glomerular filtration rate calculated using the CKD-EPI equation. ANION GAP 18 10 - 20 mmol/L [facility] Blood 04/17/2019 8:45 AM EST 04/17/2019 8:47 AM EST us Marcy Benitez CNP LAB BLOOD ORDERABLES Final Result [address] [address] * (ABNORMAL) CBC and differential (04/17/2019 8:45 AM EST) WBC 9.73 3.40 - 11.20 K/uL [facility] RBC 4.88 4.50 - 5.50 M/uL [facility] HGB 16.2 13.0 - 17.0 g/dL [facility] HCT 48.0 40.0 - 51.0 % [facility] PLT 222 130 - 400 K/uL [facility] MCV 98.4(H) 79.0 - 98.0 fL [facility] MCH 33.2 27.0 - 34.8 pg [facility] MCHC 33.8 31.5 - 36.0 g/dL [facility] RDW 12.5 10.8 - 14.6 % [facility] MPV 9.8 9.4 - 12.4 fl [facility] NRBC 0.00 0.00 /100 WBCs [facility] ABSOLUTE NRBC 0.00 0.00 K/uL [facility] DIFF METHOD Auto [facility] NEUTS 67.7 45.30 - 77.70 % [facility] LYMPHS 23.2 12.30 - 39.70 % [facility] MONOS 6.4 4.10 - 12.80 % [facility] EOS 2.1 0 - 7.2 % [facility] BASOS 0.3 0 - 2.80 % [facility] Granulocytes, immature (%) 0.3 0.0 - 0.9 % [facility] ABSOLUTE NEUTS 6.59 1.40 - 7.70 K/uL [facility] ABSOLUTE LYMPHS 2.26 0.60 - 3.20 K/uL [facility] ABSOLUTE MONOS 0.62(H) 0.11 - 0.59 K/uL [facility] ABSOLUTE EOS 0.20 0.01 - 0.50 K/uL [facility] ABSOLUTE BASOS 0.03 0.00 - 0.08 K/uL [facility] Granulocytes, immature 0.03 0.00 - 0.05 K/uL [facility] Blood 04/17/2019 8:45 AM EST 04/17/2019 8:47 AM EST Marcy Benitez [facility] LAB BLOOD ORDERABLES Final Result [facility] [address] [place] [address] from Last 3 Months or Most Recently Relevant to Health Maintenance Insurance [employer] [facility] MEDICARE PART A & B [facility] MEDICARE [facility] A & B [facility] MEDIC[facility] PART A & B [facility] MEDICARE PART A & B [facility] MEDICARE PART A & B Member Subscriber Plan / Payer (Ef fective 2018-Present) Name:Garrick Matthew Member ID:[id number] Relation to Subscriber:Self Name:Garrick Matthew Subscriber ID:[id number] Payer ID:[id number] Group ID:Not on file Type:Medicare Address: [employer] [address] [facility] MEDICARE PART A & B [facility] MEDICARE PART A & B [facility] [address] [place], [place] [address]HEALTH MEDICARE PART A & B [facility] [address] [place], [place] [address]HEALTH MEDICARE PART A & B Advance Directives For more information, please contact: [phone] (9AM - 5PM [facility], Tuesday-Tuesday) Documents on File Type Date Recorded Patient Pilot Expl anation Healthcare Proxy 11/09/2023 1:07 PM Legal Guardianship 11/09/2023 1:07 PM Jimmy ed * Full Code (Latest Code Status on File) Date Activated Date Inactivated Comments 11/07/2023 7:32 AM Question Answer Comments Code Status Confirmed With: Patient Care Teams Marketing Specialist Relationship Specialty Start Date End Date Kentrell Van MD [address] [place] [address] [place] [address] PCP - General Internal Medicine 10/13/17 Tj Membreno MD 06/09/17 Additional Source Comments The information contained in this document represents components of the legal health record. It is not the complete legal health record.[facility]
--- OUTSIDE RECORDS SUMMARY | 2025-02-25 10:36 | XMS_ITS | Encounter Summary ---
Author Organization [facility] Address [address] [facility] [address] [place] [address] Phone Care Team Providers Care Chest Pain Coordinator Name Role Phone Kentrell Van MD Primary Care Provider [phone] Tj Membreno MD Unavailable Yesenia handley Encounter Details Date Type Department Care Team (Late st Contact Info) Description 11/07/2023 Procedure Pass OR Admitting Dept - Virtual Department [address] [place] [address] Social History Tobacco Use Types Packs/Day Years Used Date Smoking Tobacco: Every Day Cigarettes Smokeless Tobacco: Never Alcohol Use Standard Drinks/Week Comments Yes 0 [...] or Hutchins 10/13/2017 2: 03 PM EDT documented as of this encounter Plan of Treatment Not on file documented as of this encounter Visit Diagnoses Not on filedocumented in this encounter Care Teams Chest Pain Coordinator Relationship Specialty Start Date End Date [place], Kentrell Venkata, MD [address] [place] [address] PCP - General Internal Medicine 10/13/17 Tj Membreno MD 06/09/17 documented as of this encounter Additional Source Comments The information contained in this document represents components of the legal health record. It is not the complete legal health record.[facility]
--- OUTSIDE RECORDS SUMMARY | 2025-02-25 10:36 | XMS_ITS | Encounter Summary ---
Author Organization [facility] Address [address] [facility] [address] [place] [address] Phone Care Team Providers Care Applied Researcher Name Role Phone Kentrell Van MD Primary Care Provider [phone] Tj Membreno MD Unavailable Unavai lable Encounter Details Date Type Department Care Team (Late st Contact Info) Description 09/22/2023 Prep for Surgery [facility] General Surgical Care [address] [place] [address] Kelle Gilmore MD [address] [facility], 2nd [place] [address] [email or web address] Social History Tobacco Use Types Packs/Day Years Used Date Smoking Tobacco: Every Day Cigarettes Smokeless Tobacco: Never Alcohol Use Standard Drinks/Week Comments Yes 0 (1 standard drink = 0.6 oz pur e alcohol) monthly Education Answer Date Recorded Are you interested [...] on filedocumented in this encounter Care Teams Applied Researcher Relationship Specialty Start Date End Date Kentrell Van MD [address] [place] [address] PCP - General Internal Medicine 10/13/17 Tj Membreno MD 06/09/17 documented as of this encounter Additional Source Comments The information contained in this document represents components of the legal health record. It is not the complete legal health record.[facility]
--- OUTSIDE RECORDS SUMMARY | 2025-02-25 10:36 | XMS_ITS ---
Author Name [facility] Organization Unknown Results Test Name/Text Value Interpretation Date Range Source HIV1 RNA num SerPl PCR Not Detected Normal 05/09/2024 - 3 0 [facility] HIV1 RNA Plas PCR-Lognum Not Detected Normal 05/09/2024 - 1.46 [facility] Interpretation Not Detected Normal 05/09/2024 H [facility] CD3+CD4+ Cells NFr Bld 43.0 % Normal 05/03/2024 34 - 5 8 [facility] CD3+CD4+ Cells num Bld 857.0 cells/cumm Normal 05/03/2024 535 - 1451 H[facility]CT Creat Ur-mCnc 56.0 mg/dL Normal 05/02/2024 [facility] T Sodium Ur-sCnc 42.0 mmol/L Normal 05/02/2024 HH CCT [place] SerPl-sCnc 0.5 mmol/L Below low normal 05/02/2024 0. 6 - 1.2 [facility] Glucose SerPl-mCnc 85.0 mg/dL Normal 05/02/2024 65 - 99 [facility] CO2 SerPl-sCnc 22.0 mmol/L Normal 05/02/2024 22 - 33 HH CCT Creat SerPl-mCnc 2.1 mg/dL Above high normal 05/02/2024 0.5 - 1.3 [facility] Calcium SerPl-mCnc 9.3 mg/dL Normal 05/02/2024 8.7 - 10.5 [facility]CT Potassium SerPl-sCnc 4.8 mmol/L Normal 05/02/2024 3.4 - 5 .3 [facility] BUN SerPl-mCnc 25.0 mg/dL Above high normal 05/02/2024 8 - 2 1 [facility] Anion Gap Bld-sCnc 10.0 Normal 05/02/2024 7 - 17 [facility] BUN/Creat SerPl 12.0 Ratio Normal 05/02/2024 10 - 25 HH CCT GFR/BSA.pred SerPlBld [id number] 42.0 Below low normal 05/02/2024 59 - HHCCT Chloride SerPl-sCnc 105.0 mmol/L Normal 05/02/2024 98 - 1 07 [facility]CT Sodium SerPl-sCnc 137.0 mmol/L Normal 05/02/2024 136 - 14 5 [facility] Neutrophils/leuk NFr Bld Auto 74.1 % Normal 05/02/2024 [facility] Imm Granulocytes num Bld Auto 0.03 Thou/uL Normal 05/02/2024 0 - 0.1 [facility]CT Monocytes num Bld Auto 0.89 Thou/uL Normal 05/02/2024 0.2 - 1.5 [facility]CT Basophils num Bld Auto 0.01 Thou/uL Normal 05/02/2024 0 - 0.2 [facility]CT Lymphocytes num Bld Auto 1.53 Thou/uL Normal 05/02/2024 1.5 - 4.5 [facility]CT RBC num Bld Auto 3.62 Mil/uL Below low normal 05/02/2024 4.5 - 6.2 [facility]CT Monocytes/leuk NFr Bld Auto 9.3 % Normal 05/02/2024 H[facility]CT MCHC RBC Auto-mCnc 33.4 g/dL Normal 05/02/2024 30 - 36 [facility] Basophils/leuk NFr Bld Auto 0.1 % Normal 05/02/2024 [facility] PMV Bld Auto 10.1 fL Normal 05/02/2024 7.5 - 12.5 [facility] Imm Granulocytes/leuk NFr Bld Auto 0.3 % Normal 05/02/2024 [facility]CT MCV RBC Auto 105.0 fL Above high normal 05/02/2024 80 - 100 [facility]CT Neutrophils num Bld Auto 7.05 Thou/uL Normal 05/02/2024 2 - 7.5 [facility]CT Hgb Bld-mCnc 12.7 g/dL Below low normal 05/02/2024 13 - 17.7 [facility]CT Platelet num Bld Auto 143.0 Thou/uL Below low normal 024 150 - 450 H[facility]CT MCH RBC Qn Auto 35.1 pg Above high normal 05/02/2024 26 - 34 H[facility]CT Hct VFr Bld Auto 38.0 % Below low normal 05/02/2024 39 - 54 H[facility]CT WBC num Bld Auto 9.5 Thou/uL Normal 05/02/2024 4 - 11 [facility]CT Lymphocytes/leuk NFr Bld Auto 16.1 % Normal 05/02/2024 [facility]CT RDW RBC Auto-Rto 11.7 % Normal 05/02/2024 11.5 - 14.5 [facility]CT Eosinophil/leuk NFr Bld Auto 0.1 % Normal 05/02/2024 [facility]CT Eosinophil num Bld Auto 0.01 Thou/uL Normal 05/02/2024 0 - 0.7 H[facility]CT Lactate SerPl-sCnc 1.1 mmol/L Normal 05/02/2024 0.5 - 1.9 [facility]CT Calcium SerPl-mCnc 9.3 mg/dL Normal 05/02/2024 8.7 - 10.5 [facility]CT Glucose SerPl-mCnc 88.0 mg/dL Normal 05/02/2024 65 - 99 [facility]CT Globulin Ser Calc-mCnc 3.3 g/dL Normal 05/02/2024 1.5 - 3.9 [facility]CT Albumin/Glob SerPl 1.3 Ratio Normal 05/02/2024 1 - 3 H[facility]CT Bilirub SerPl-mCnc 0.3 mg/dL Normal 05/02/2024 0.2 - 1 HHCCT Prot SerPl-mCnc 7.5 g/dL Normal 05/02/2024 6.3 - 8.[address] ALT SerPl-cCnc 18.0 U/L Normal 05/02/2024 10 - 55 HHCC T Creat SerPl-mCnc 2.1 mg/dL Above high normal 05/02/2024 0.5 - 1.3 HHCCT GFR/BSA.pred SerPlBld [id number] 42.0 Below low normal 05/02/2024 59 - HHCCT CO2 SerPl-sCnc 23.0 mmol/L Normal 05/02/2024 22 - 33 HH CCT BUN/Creat SerPl 12.0 Ratio Normal 05/02/2024 10 - 25 HH CCT ALP SerPl-cCnc 95.0 U/L Normal 05/02/2024 45 - 128 HHCC T Chloride SerPl-sCnc 101.0 mmol/L Normal 05/02/2024 98 - 1 07 [facility]CT BUN SerPl-mCnc 25.0 mg/dL Above high normal 05/02/2024 8 - 2 1 HHCCT AST SerPl-cCnc 16.0 U/L Normal 05/02/2024 10 - 55 HHCC T Sodium SerPl-sCnc 137.0 mmol/L Normal 05/02/2024 136 - 14 5 [facility]CT Anion Gap Bld-sCnc 13.0 Normal 05/02/2024 7 - 17 H[facility]CT Albumin SerPl-mCnc 4.2 g/dL Normal 05/02/2024 3.5 - 5 H[facility]CT Potassium SerPl-sCnc 5.3 mmol/L Normal 05/02/2024 3.4 - 5 .3 HHCCT MCV RBC Auto 104.0 fL Above high normal 05/02/2024 80 - 100 HHCCT MCHC RBC Auto-mCnc 34.0 g/dL Normal 05/02/2024 30 - 36 H[facility]CT RBC num Bld Auto 4.23 Mil/uL Below low normal 05/02/2024 4.5 - 6.2 H[facility]CT Neutrophils num Bld Auto 11.57 Thou/uL Above high normal 05/02/2024 2 - 7.5 HHCCT Basophils/leuk NFr Bld Auto 0.2 % Normal 05/02/2024 HHCCT Hct VFr Bld Auto 43.8 % Normal 05/02/2024 39 - 54 HH CCT PMV Bld Auto 9.5 fL Normal 05/02/2024 7.5 - 12.5 [facility]CT Platelet num Bld Auto 167.0 Thou/uL Normal 05/02/2024 150 - 450 [facility]CT Monocytes/leuk NFr Bld Auto 4.7 % Normal 05/02/2024 H[facility]CT Hgb Bld-mCnc 14.9 g/dL Normal 05/02/2024 13 - 17.7 H[facility]CT RDW RBC Auto-Rto 11.7 % Normal 05/02/2024 11.5 - 14.5 HHCCT Imm Granulocytes/leuk NFr Bld Auto 0.6 % Normal 05/02/2024 H[facility]CT Eosinophil/leuk NFr Bld Auto 0.4 % Normal 05/02/2024 HHCCT MCH RBC Qn Auto 35.2 pg Above high normal 05/02/2024 26 - 34 H[facility]CT Neutrophils/leuk NFr Bld Auto 87.2 % Normal 05/02/2024 HHCCT WBC num Bld Auto 13.3 Thou/uL Above high normal 05/02/2024 4 - 11 HHCCT Lymphocytes/leuk NFr Bld Auto 6.9 % Normal 05/02/2024 HHCCT Eosinophil num Bld Auto 0.05 Thou/uL Normal 05/02/2024 0 - 0.7 HHCCT Monocytes num Bld Auto 0.62 Thou/uL Normal 05/02/2024 0.2 - 1.5 HHCCT Lymphocytes num Bld Auto 0.91 Thou/uL Below low normal 05/02/2024 1.5 - 4.5 HHCCT Basophils num Bld Auto 0.02 Thou/uL Normal 05/02/2024 0 - 0.2 HHCCT Imm Granulocytes num Bld Auto 0.08 Thou/uL Normal 05/02/2024 0 - 0.1 HHCCT POC Glucose 84.0 mg/dL Normal 05/02/2024 65 - 99 HHCCT History of Medication Use Medication Directions Dispensed Refills Start Date End Date Stat ondansetron (ZOFRAN-ODT) 4 MG disintegrating tablet DISSOLVE 1 TABLET ON THE TONGUE EVERY 8 HOURS NEEDED FOR NAUSEA AND VOMITING 01/23/2025 active esomeprazole (NexIUM) 40 MG capsule Take 1 capsule (40 mg total) by mouth nightly. 11/30/2024 11/30/2024 active famotidine (PEPCID) 40 MG tablet Take 1 tablet (40 mg total) by mouth nightly. 11/30/2024 active ondansetron (ZOFRAN-ODT) 4 MG disintegrating tablet Take 1 tablet (4 mg total) by mouth 3 times daily (every 8 hours) as needed for nausea or vomiting. Place tablet on tongue to dissolve. 11/30/2024 active nicotine (NICODERM CQ) 21 MG/24HR patch Place 1 patch on the skin daily. 05/03/2024 11/30/2024 aborted mupirocin (BACTROBAN) 2 % ointment Apply topically 3 (three) times a day. 05/02/2024 11/30/2024 aborted benztropine (COGENTIN) 0.5 MG tablet Take 0.5 mg by mouth 2 (two) times a day. 11/30/2024 aborted budesonide-formoterol (SYMBICORT) 160-4.5 MCG/ACT inhaler Inhale 2 puffs daily as needed (shortness of breath). 11/30/2024 aborted clonazePAM (KlonoPIN) 0.5 MG disintegrating tablet Take 1 tablet (0.5 mg total) by mouth nightly. 11/30/2024 active haloperidol (HALDOL) 5 MG tablet Take 2 tablets (10 mg total) by mouth every day after lunch. 11/30/2024 aborted loratadine (CLARITIN) 10 MG tablet Take 1 tablet (10 mg total) by mouth nightly. 11/30/2024 aborted perphenazine (TRILAFON) 4 MG tablet Take 1 tablet (4 mg total) by mouth 2 (two) times a day. 11/30/2024 aborted sildenafil (VIAGRA) 100 MG tablet Take 1 tablet (100 mg total) by mouth daily as needed for erectile dysfunction. 11/30/2024 aborted allopurinol (ZYLOPRIM) 100 mg tablet Take 1 tablet (100 mg total) by mouth every morning after breakfast. active cloNIDine (CATAPRES) 0.1 MG tablet Take 1 tablet (0.1 mg total) by mouth 2 times a day. active divalproex (DEPAKOTE) [address] Take 2 tablets (1,000 mg total) by mouth nightly. active divalproex (DEPAKOTE) [address] Take 750 mg by mouth every morning after breakfast. active doxycycline (DORYX) 50 MG tablet Take by mouth 2 (two) times a day. active emtricitabine-tenofov ir (TRUVADA) 200-300 mg per tablet Take 1 tablet by mouth every morning after breakfast. active eszopiclone (LUNESTA) 3 MG tablet Take 1 tablet (3 mg total) by mouth nightly. Take immediately before bedtime active haloperidol (HALDOL) 5 MG tablet Take 1 tablet (5 mg total) by mouth 2 (two) times a day. active lithium carbonate 150 MG IR capsule Take 3 capsules (450 mg total) by mouth nightly. active Lumateperone Tosylate (Caplyta) 21 MG Cap Take by mouth. a ctive metFORMIN (GLUCOPHAGE) 500 MG tablet Take 1 tablet (500 mg total) by mouth 2 (two) times a day with meals. active montelukast (SINGULAIR) 10 MG tablet Take 1 tablet (10 mg total) by mouth nightly. active Multiple Vitamin tablet Take 1 tablet by mouth daily. active varenicline (CHANTIX) 1 MG tablet Take 1 mg by mouth 2 (two) times a day. Take with full glass of water. active Allergies Allergen Reaction Severity Comment Documented Date Source Statu s BANANA OTHER (SEE COMMENTS) [facility]24 [facility] IBUPROFEN OTHER (SEE COMMENTS) Elevates [place] level 11/22/2023 [facility] active NUTS ANAPHYLAXIS 11/22/2023 [facility] active CODEINE RASH/DERMATITIS 04/15/2023 [facility] activ e FLUTICASONE-SALMET RICCARDO OTHER (SEE COMMENTS) Other Reaction(s): throat closed up 04/15/2023 [facility] active LATEX OTHER (SEE COMMENTS) 04/15/2023 [facility] active CARBAMAZEPINE RASH/DERMATITIS 10/13/2017 [facility] active FLUTICASONE OTHER (SEE COMMENTS) 10/13/2017 [facility] active QUETIAPINE RASH/DERMATITIS 10/13/2017 [facility] ac tive Problems Problem Status Onset Date Problem Type Date of Resoluti on Source Smoking active 2024-05-02 ProblemAct [facility] Abiodun angina active 2024-05-02 ProblemAct [facility] Encounters Encounter Type Encounter Reason Primary Diagnosis Location Date Ambulatory GERD GERD [facility] 11/30/2024 Inpatient Carbuncle of neck Carbuncle of neck [facility] 05/01/2024 Care Team Organization Name Specialty Phone Email Start Date End Da salena [facility] 11/30/2024 12/29/2024 [facility] DEDRICK YING [facility] 10/22/2024 [facility] 05/04/2024 12/29/2024 [facility] 05/02/2024
--- OUTSIDE RECORDS SUMMARY | 2025-02-25 10:36 | XMS_ITS | Encounter Summary ---
Author Organization [facility] Address [address] [facility] [address] [place] [address] Phone Care Team Providers Care Barge Master Name Role Phone Kentrell Van MD Primary Care Provider [phone] Tj Membreno MD Unavailable Yesenia handley Encounter Details Date Type Department Care Team (Latest Contact Info) Description 04/17/2019 Transcribe Orders [facility] Laboratory [address] [address] Marcy Benitez, [employer] [address] [place] [address] [email or web address] Gastroesophageal reflux disease, esophagitis presence not specified (Primary Dx); Liver dysfunction Social History Tobacco Use Types Packs/Day Years Used Date Smoking Tobacco: Every Day Smokeless Tobacco: Never Alcohol Use Standard Drinks/Week Comments Yes 0 (1 standard drink = 0.6 oz pur e alcohol) monthly Sex and Gender Information Value Date Recorded Sex Assigned at Male 10/13/2017 2:03 PM EDT Legal Sex Male 9:05 PM EDT Gender Identity Male 10/13/2017 2:03 PM EDT Sexual Orientation Lesbian or [place] 10/13/2017 2: 03 PM EDT documented as of this encounter Plan of Treatment Not on file documented as of this encounter Results * (ABNORMAL) Comprehensive metabolic panel (04/17/2019 8:45 AM EST) SODIUM 140 133 - 146 mmol/L [facility] POTASSIUM 4.5 3.3 - 5.1 mmol/L [facility] CHLORIDE 102 96 - 108 mmol/L [facility] CO2 25 21 - 35 mmol/L [facility] BUN 16 6 - 19 mg/dL [facility] CREATININE 1.00 0.5 - 1.5 mg/dL [facility] GLUCOSE 105(H) 70 - 99 mg/dL [facility] ALBUMIN 4.4 3.9 - 4.8 g/dL [facility] TOTAL PROTEIN 7.8 6.5 - 8.0 g/dL [facility] CALCIUM 10.2 8.4 - 10.3 mg/dL [facility] ALKALINE PHOSPHATASE 111 39 - 117 U/L [facility] TOTAL BILIRUBIN 0.4 0.0 - 1.2 mg/dL [facility] AST 19 0 - 37 U/L [facility] ALT 16 0 - 40 U/L [facility] GLOBULIN 3.4 1 - 4.8 g/dL [facility] EGFR 101 >59 mL/min/1.7 3m2 [facility] Comment:If patient is black, multiply result by 1.159. Estimated glomerular filtration rate calculated using the CKD-EPI equation. ANION GAP 18 10 - 20 mmol/L [facility] Blood 04/17/2019 8:45 AM EST 04/17/2019 8:47 AM EST Marcy Benitez [facility] LAB BLOOD ORDERABLES Final Result [facility] [address] [place], [place] [id number] * (ABNORMAL) CBC and differential (04/17/2019 8:45 AM EST) WBC 9.73 3.40 - 11.20 K/uL [facility] RBC 4.88 4.50 - 5.50 M/uL [facility] HGB 16.2 13.0 - 17.0 g/dL [facility] HCT 48.0 40.0 - 51.0 % [facility] PLT 222 130 - 400 K/uL [facility] MCV 98.4(H) 79.0 - 98.0 fL [facility] MCH 33.2 27.0 - 34.8 pg [facility] MCHC 33.8 31.5 - 36.0 g/dL [facility] RDW 12.5 10.8 - 14.6 % [facility] MPV 9.8 9.4 - 12.4 fl [facility] NRBC 0.00 0.00 /100 WBCs [facility] ABSOLUTE NRBC 0.00 0.00 K/uL [facility] DIFF METHOD Auto [facility] NEUTS 67.7 45.30 - 77.70 % [facility] LYMPHS 23.2 12.30 - 39.70 % [facility] MONOS 6.4 4.10 - 12.80 % [facility] EOS 2.1 0 - 7.2 % [facility] BASOS 0.3 0 - 2.80 % [facility] Granulocytes, immature (%) 0.3 0.0 - 0.9 % [facility] ABSOLUTE NEUTS 6.59 1.40 - 7.70 K/uL [facility] ABSOLUTE LYMPHS 2.26 0.60 - 3.20 K/uL [facility] ABSOLUTE MONOS 0.62(H) 0.11 - 0.59 K/uL [facility] ABSOLUTE EOS 0.20 0.01 - 0.50 K/uL [facility] ABSOLUTE BASOS 0.03 0.00 - 0.08 K/uL [facility] Granulocytes, immature 0.03 0.00 - 0.05 K/uL [facility] Blood 04/17/2019 8:45 AM EST 04/17/2019 8:47 AM EST Marcy Benitez [facility] BLOOD ORDERABLES Final Result Performing Organization Address City/State/[facility] Co de Phone Number [facility] [address] [place] [address] documented in this encounter Visit Diagnoses Diagnosis Gastroesophageal reflux disease, esophagitis presence not specified- Primary Liver dysfunction Unspecified disorder of liver documented in this encounter Care Teams Barge Master Relationship Specialty Start Date End Date Kentrell Van MD [address] [place] [id number] PCP - General Internal Medicine 10/13/17 Tj Membreno MD 06/09/17 documented as of this encounter Additional Source Comments The information contained in this document represents components of the legal health record. It is not the complete legal health record.[facility]
--- OUTSIDE RECORDS SUMMARY | 2025-02-25 10:36 | XMS_ITS | Clinical Summary ---
Author Organization [facility] Address [address] [place] [address] Care Team Providers Care [employer]oe [employer] Caser Name Role Phone Kentrell Van MD Primary Care Provider [phone] Allergies Active Allergy Reactions Criticality Noted Date Comments Banana Other (See Comments) Low 11/30/2024 Carbamazepine Other (See Comments),Rash/Dermat itis Low 10/13/2017 Codeine Rash/Dermatitis Low 04/15/2023 Fluticasone Anaphylaxis,Other (See Comments) High 10/13/2017 Fluticasone-Salmeterol Anaphylaxis,Other (See Comments) High 04/15/2023 Other Reaction(s): throat closed up Ibuprofen Other (See Comments) Low 11/22/2023 Elevates [place] level Latex Other (See Comments) Low 04/15/2023 Nuts Anaphylaxis High 11/22/2023 Quetiapine Rash/Dermatitis Low 10/13/2017 Medications haloperidol (HALDOL) 5 MG tablet Take 1 tablet (5 mg total) by mouth 2 (two) times a day. Active allopurinol (ZYLOPRIM) 100 mg tablet Take [...] (1,000 mg total) by mouth nightly. Active lithium carbonate 150 MG IR capsule Take 3 capsules (450 mg total) by mouth nightly. Active montelukast (SINGULAIR) 10 MG tablet Take 1 tablet (10 mg total) by mouth nightly. Active eszopiclone (LUNESTA) 3 MG tablet Take 1 tablet (3 mg total) by mouth nightly. Take immediately before bedtime Active clonazePAM (KlonoPIN) 0.5 MG disintegrating tablet Take 1 tablet (0.5 mg total) by mouth nightly. Active doxycycline (DORYX) 50 MG tablet Take by mouth 2 (two) times a day. Active varenicline (CHANTIX) 1 MG tablet Take 1 mg by mouth 2 (two) times a day. Take with full glass of water. Active benztropine (COGENTIN) 0.5 MG tablet Take 0.5 mg by mouth 2 (two) times a day. Active Multiple Vitamin tablet Take 1 tablet by mouth daily. Active Lumateperone Tosylate (Caplyta) 21 MG Cap Take by mouth. Activ e famotidine (PEPCID) 40 MG tabletIndications: Gastroesophageal reflux disease, unspecified whether esophagitis present Take 1 tablet (40 mg total) by mouth nightly. 90 tablet 3 12/01/19 25 Active ondansetron (ZOFRAN-ODT) 4 MG disintegrating tabletIndications: Gastroesophageal reflux disease, unspecified whether esophagitis present,Nausea and vomiting, unspecified vomiting type DISSOLVE 1 TABLET ON THE TONGUE EVERY 8 HOURS NEEDED FOR NAUSEA AND VOMITING 20 tablet 01/24/20 25 Active esomeprazole (NexIUM) 40 MG capsuleIndications :Gastroesophageal reflux disease, unspecified whether esophagitis present Take 1 capsule (40 mg total) by mouth nightly. 90 capsule 3 02/19/20 25 Active esomeprazole (NexIUM) 40 MG capsuleIndications :Gastroesophageal reflux disease, unspecified whether esophagitis present Take 1 capsule (40 mg total) by mouth nightly. 90 capsule 1 12/01/19 25 025 Discontin ued(Reord er) Active Problems Problem Noted Date Diagnosed Date Abiodun angina 05/02/2024 Smoking 05/02/2024 Encounters Date Type Department Care Team Description 02/18/[address] [phone] Norma Rosario MD Other 01/23/[address] [phone] Norma Rosario MD Gastroesophageal reflux disease, unspecified whether esophagitis present; Nausea and vomiting, unspecified vomiting type 11/30/2024 1:30 PM EDT Consult [address] [phone] Norma Rosario MD Gastroesophageal reflux disease, unspecified whether esophagitis present (Primary Dx); Nausea and vomiting, unspecified vomiting type from Last 3 Months Family History * Patient is adopted Relation Name Status Comments Father Unknown Mother Unknown Social History Tobacco Use Types Packs/Day Years Used Date Smoking Tobacco: Every Day Cigarettes Tobacco Cessation:Ready to Q uit: Not Asked; Counseling Given: Not Answered Comments:Patient smokes between 2-5 cigs every day Alcohol Use Standard Drinks/Week Comments Not Currently 0 (1 standard drink = 0.6 oz pur e alcohol) [facility] Utilities Answer Date Recorded In the past [address] syndications, gas, oil, or water [employer] threatened to shut off services in your [...] any time in the past 12 m [place], were you homeless or living in a care home (including now)? No 05/02/2024 Sex and Gender Information Value Date Recorded Sex Assigned at Male 05/01/2024 9:17 PM EST Legal Sex Male 6:24 PM EST Gender Identity Male 05/01/2024 9:17 PM EST Sexual Orientation Choose not to disclose 2023 9:17 PM EST Last Filed Vital Signs Vital Sign Reading Time Taken Comments Blood Pressure 110/80 11/30/2024 1:36 PM EDT Pulse 88 11/30/2024 1:36 PM EDT Temperature 36.1 C (96.9 F) 05/02/2024 2:11 AM EST Respiratory Rate 18 05/02/2024 2:11 AM EST Oxygen Saturation 94% 05/02/2024 2:11 AM EST Inhaled Oxygen Concentration - - Weight 105 kg (232 lb) 11/30/2024 1:36 PM EDT Height 190.5 cm (6' 3 ) 11/30/2024 1:36 PM EDT Body Mass Index 29 11/30/2024 1:36 PM EDT Plan of Treatment Upcoming Encounters Date Type Department Care Team (Late st Contact Info) Description 04/10/2025 3:30 PM EST Office Visit [address] [place] [phone] Norma Rosario MD [address] [place] [phone] Health Maintenance Due Date Last Done Comments Hepatitis C Virus Screening 1989 DTaP/Tdap/Td Vaccines (1 - Tdap) 2008 Hepatitis B Vaccines (1 of 3 - 19+ 3-dose series) 2008 Pneumococcal Vaccine: Pediat denisa (0-5 Years) and At-Risk Patients (6 to 49 Years) (1 of 2 - PCV) 2008 HPV Vaccines (1 - 3-dose SCD M series) 2016 Influenza Vaccine 01/04/2025 02/24/2024, , 02/24/2022, Additional history exists COVID-19 Vaccine ( - 2024-2 6 season) 2025 02/24/2022, 03/11/2021, 09/06/2020, Additional history exists HIV Screening Completed 05/02/2024 Procedures Procedure Name Priority Date/Time Associated Diagnosis Comments HIV-1 RNA VIRAL LOAD REFLEX HIV-1 GENOTYPE - HIV1RG Routine 05/02/2024 11:20 AM EST from Last 3 Months or Most Recently Relevant to Health Maintenance Results * HIV-1 RNA Viral Load reflex HIV-1 Genotype (05/02/2024 11:20 AM EST) HIV-1 RNA (copies/mL) Not Detected <30 copies/m L 05/09/2024 12:40 PM EST [facility] HIV-1 RNA (log10) Not Detected <1.46 log copies/m L 05/09/2024 12:40 PM EST [facility] Interpretation Not Detected 05/09/20 12:40 PM EST [facility] Comment:Performed by FDA nathalie roved [place] [employer] TMA. Linear range is 30 to 10,000,000 copies/mL. HIV Genotyping is not recommended for viral loads below 2,000 copies/mL. Not FDA approved to diagnose HIV infection. Blood Plasma specimen / Unknown 05/02/2024 11:20 AM EST 05/02/2024 11:46 AM EST us Erick Alva MD LAB BLOOD ORDERABLES Final R esult [facility] [address] [place] [address], from Last 3 Months or Most Recently Relevant to Health Maintenance Insurance MEDICARE PART A & B [facility] [address] [place] [address] MEDICARE PART A & B [facility] Advance Directives Documents on File Type Date Recorded Patient [address] Vendor Expl anation Power of Tarper-Scan 11/30/2024 [facility]- POWER OF ATTOR MONSE - APPT ON 11/30/[address] NORMA ROSARIO * Full Code (Latest Code Status on File) Date Activated Date Inactivated Comments 05/02/2024 12:44 AM Healthcare Agents on File Name Relationship Healthcare Agent [facility] Javier Matthew Plenary guardian 3. Plenary Guardian Care Teams [employer] Caser Relationship Specialty Start Date End Date Kentrell Van MD [address] [place] [address] PCP - General Internal Medicine 10/22/24
--- OUTSIDE RECORDS SUMMARY | 2025-02-25 10:36 | XMS_ITS | Encounter Summary ---
Author Organization [facility] Address [address] [facility] [address] [place] [address] Phone Care Team Providers Care Wool And Pelt Grader Name Role Phone Kentrell Van MD Primary Care Provider [phone] Tj Membreno MD Unavailable Evavai emmanuelle Encounter Details Date Type Department Care Team (Latest Contact Info) Description 01/13/2023 Transcribe Orders Virtual Department [address] [place] [address] Chon Banks MD [address] [facility] [address] [place] [address] [email or web address] Stage 3a chronic kidney disease (CKD) (Primary Dx) Social History Tobacco Use Types Packs/Day Years [...] documented as of this encounter Visit Diagnoses Diagnosis Stage 3a chronic kidney disease (CKD)- Primary documented in this encounter Care Teams Wool And Pelt Grader Relationship Specialty Start Date End Date Kentrell Van MD [address] [place] [phone] PCP - General Internal Medicine 10/13/17 Tj Membreno MD 06/09/17 documented as of this encounter Additional Source Comments The information contained in this document represents components of the legal health record. It is not the complete legal health record.[facility]
--- OUTSIDE RECORDS SUMMARY | 2025-02-25 10:36 | XMS_ITS | Patient Health Record ---
Author Organization [facility] Address [address] [facility] [place] [address] Care Team Providers Care Suit Maker Name Role Phone Carlota ROJO, Kentrell Primary Care Provider Deja Hernandez [phone] Reason For Referral No Information Encounters Encounter Location Date Provider Diagnosis [facility] [address] [place] [address] 06/18/2024 Deja Hernandez [address] [address] 07/03/2024 Deja Hernandez Plan Of Treatment No Information Insurance Providers Payer Name Payer Address Payer Phone Subscriber Number Group Number Insured Name Patient Relationship to Insured Coverage Start Date Coverage End Date Medicare National [facility] [address] [place] [address] [id number] Garrick Jeter Self - patient is the insured [facility] [address] [place] [address] [id number] Garrick Jeter Self - patient is the insured
[2025-02-25 10:59] LABS: Alanine Aminotransferase 15 U/L (0-40); Albumin Level 4.4 g/dL (3.5-5.0); Alkaline Phosphatase 79 U/L (39-117); Anion Gap 12 (12-20); Aspartate Amino Transferase 21 U/L (5-37); Blood Urea Nitrogen 20 mg/dL (9-16); Calcium 9.6 mg/dL (8.4-10.2); Carbon Dioxide 26 mmol/L (22-29); Chloride 106 mmol/L (96-108); Estimated Glomerular Filt Rate 34; Potassium 4.7 mmol/L (3.3-5.1); Sodium 139 mmol/L (135-145); Total Protein 7.3 g/dL (6.5-8.0)
== END 2025-02-25 09:02 | disposition home or self-care (01) ==
LOC: HO.HMGCLDS 09:01
PROVIDERS: PCP Internal Medicine; Visit Provider Psychiatry & Neurology Psychiatry
DX: Z13.89 Encounter for screening for other disorder (principal)
CPT/HCPCS: 36415; 80048; 80076; 80164; 85025

== ENCOUNTER 2025-04-27 08:25 | Outpatient (REF) | payer MEDICARE, BC, MEDICAID, SELFPAY ==
--- OUTSIDE RECORDS SUMMARY | 2024-08-01 03:30 | XMS_ITS ---
Author Organization [facility] jenelle [place] Address [address] [facility] [place] [address] Care Team Providers Care Optical Worker Name Role Phone Kentrell Van MD Primary Care Provider UnavailDeja Benson [phone] Encounters Encounter Location Date Provider Diagnosis [address] [place] [address] 08/01/2024 Deja Hernandez Plan Of Treatment No Information Progress Notes * Marko MATTHEWOB:1990 ( 34 yo M)Acc No.[id number]:08/01/2024 Progress Notes Patient: Garrick STOUT Provider: Mike Hernandez DPM :1990 A ge:34 Y S ex:Male Date:08/01/2024 Address:[address] [id number] Pcp:Kentrell Van MD Subjective: * Chief Complaints: [...] Hernandez DPM Date: 0 08/01/2024 Generated for iRan quevedo/Trena/Camsmitting on: 06/27/2024 08:27 AM EST
--- NOTE | ~2025-04-27 | US_ITS ---
CLINICAL HISTORY: cyst of epididymis US scrotum with Color and Duplex doppler. Comparison: None Technique: Real time sonographic imaging, including color-flow imaging, was performed by the fraternity adviser. Multiple new accounts banking representative static images were saved for review. Findings: Right testicle normal size and echotexture, 4.5 x 2.5 x 3.0 cm. Normal color flow. Normal arterial and venous spectral doppler waveforms. Left testicle normal size and echotexture, 4.2 x 2.7 x 2.5 cm. Normal color flow. Normal arterial and venous spectral doppler waveforms. Normal epididymides. Simple left moderate size hydroceles Impression: 1. Normal testes and epididymi 2. Moderate-size simple hydrocele on the left This document has been electronically signed by: Derrick Regan MD on 04/27/2025 09:53:09
--- OUTSIDE RECORDS SUMMARY | 2025-04-27 08:27 | XMS_ITS | Encounter Summary ---
Author Organization [facility] Address [address] [place] [address] Phone Care Team Providers Care Stove Cleaner Name Role Phone Kentrell Van MD Primary Care Provider [phone] Encounter Details Date Type Department Care Team (Late st Contact Info) Description 10/01/2024 Documentation Only [facility] [address] [place] [address] Gita Burnett [address] [place] [address] Social History Tobacco Use Types Packs/Day Years Used Date Smoking Tobacco: Never Assessed Sex and Gender Information Value Date Recorded Sex Assigned at Not on file Legal Sex Male 1:21 PM EDT Gender Identity Not on file Sexual Orientation Not on file documented as of this encounter Plan of Treatment Upcoming Encounters Date Type Department Care Team (Late st Contact Info) Description 10/07/2025 2:00 PM EDT Office Visit [facility] [address] Jake FREITAS [address] [place] [phone] Chon Banks MD [address] [place] [address] [place] [address] documented as of this encounter Visit Diagnoses Not on filedocumented in this encounter Care Teams Stove Cleaner Relationship Specialty Start Date End Date Kentrell Van MD [place] SH[employer]ER [address] [place] [address] [address] [place], [place] PCP - General Internal Medicine 12/27/22 documented as of this encounter
--- OUTSIDE RECORDS SUMMARY | 2025-04-27 08:27 | XMS_ITS | Encounter Summary ---
Author Organization [facility] [place], Address [address] [place] [address] Phone Care Team Providers Care Contour Band Saw Operator Vertical Name Role Phone Kentrell Van MD Primary Care Provider [phone] Encounter Details Date Type Department Care Team (Late st Contact Info) Description 04/15/2023 Documentation Only [facility] Dr Jake [address] [place] [address] Chon Banks MD [address] [place] [address] [place] [phone] Social History Tobacco Use Types Packs/Day Years [...] Visit [facility] Dr Jake [address] [place] [phone] Chon Banks MD [address] [place] [address] [place] [address] documented as of this encounter Visit Diagnoses Not on filedocumented in this encounter Care Teams Contour Band Saw Operator Vertical Relationship Specialty Start Date End Date Kentrell Van MD NEW LOTHROP MACHINE GRAINER [address] [place] [address] [address] [place] PCP - General Internal Medicine 12/27/22 documented as of this encounter
--- OUTSIDE RECORDS SUMMARY | 2025-04-27 08:27 | XMS_ITS | Patient Health Record ---
[facility] Address [address] [facility] [place] [address] Care Team Providers Care R Developer Name Role Phone Carlota ROJO, Kentrell Primary Care Provider Deja Hernandez [phone] Reason For Referral No Information Encounters Encounter Location Date Provider [facility] [address] [place] [address] 06/18/2024 Deja Hernandez [address] [address] 07/03/2024 Deja Hernandez Plan Of Treatment No Information Insurance Providers Payer Name Payer Address Payer Phone Subscriber Number Group Number Insured Name Patient Relationship to Insured Coverage Start Date Coverage End Date Medicare National [facility] [address] [place] [address] [id number] Garrick Jeter Self - patient is the insured [facility] [address] [place] [address] [id number] Garrick Jeter Self - patient is the insured
--- OUTSIDE RECORDS SUMMARY | 2025-04-27 08:27 | XMS_ITS | Encounter Summary ---
Author Organization [facility] Address [address] [place] [address] Phone Care Team Providers Care Oil Well Drilling Manager Name Role Phone Kentrell Van MD Primary Care Provider [phone] Encounter Details Date Type Department Care Team (Late st Contact Info) Description 10/10/2023 Documentation Only [facility] [address] [place] [address] Gita Burnett [address] [place] [phone] Social History Tobacco Use Types Packs/Day [...] Visit [facility] [place] Dr Jake FREITAS [address] [place] [phone] Chon Bansk MD [address] [place] [address] [place] [address] documented as of this encounter Visit Diagnoses Not on filedocumented in this encounter Care Teams Oil Well Drilling Manager Relationship Specialty Start Date End Date Kentrell Van MD [place] AIR BAG CURER [address] [place] [address] [address] [place], [place] PCP - General Internal Medicine 12/27/22 documented as of this encounter
--- OUTSIDE RECORDS SUMMARY | 2025-04-27 08:27 | XMS_ITS | Clinical Summary ---
Author Organization [facility] Address [address] [address] Phone Care Team Providers Care Thermal Cutter Hand Name Role Phone Kentrell Van MD Primary Care Provider [phone] Tj Membreno MD Unavailable Unavai lable Allergies Active Allergy Reactions Criticality Noted Date Comments Banana 04/15/2023 Other reaction(s): tested with positive allergy Fluticasone 10/13/2017 Fluticasone Propion-Salmeterol 11/22/2023 Other Reaction(s): throat closed up Ziprasidone Hcl 10/13/2017 Ibuprofen Other (See Comments) 11/22/2023 Elevates [place] level Nut Flavor Anaphylaxis High 11/22/2023 Delta Anaphylaxis High 11/22/2023 Quetiapine 10/13/2017 Carbamazepine 10/13/2017 [...] for long-term (current) use of other medications THYROID STIMULATING HORMONE (TSH) Routine 09/19/2023 10:16 AM EDT Bipolar affective [...] not specified Liver dysfunction COMPREHENSIVE METABOLIC PANEL (CMP) Routine 04/17/2019 8:45 AM EST Gastroesophageal reflux disease, esophagitis presence not specified Liver dysfunction from Last 3 Months or Most Recently Relevant to Health Maintenance Results * TSH (09/19/2023 10:16 AM EDT) TSH 0.91 0.27 - 4.20 uIU/mL [facility] Blood 09/19/2023 10:1 6 AM EDT 09/19/2023 10:20 AM EDT us Yelitza Meyers MD LAB BLOOD BKR ORDE RABCRISTOPHER Final Result [address] [address] * [place] level (09/19/2023 10:16 AM EDT) LITHIUM 0.55 0.5 - 1.00 mmol/L [facility] Blood 09/19/2023 10:1 6 AM EDT 09/19/2023 10:20 AM EDT us Yelitza Meyers MD LAB BLOOD BKR ORDE RABLES Final Result Performing Organization Address City/[facility]/ZIP Co de Phone Number [address] [address] * Valproic acid (09/19/2023 10:16 AM EDT) VALPROIC ACID 62.7 50.0 - 100.0 ug/mL [facility] Blood 09/19/2023 10:1 6 AM EDT 09/19/2023 10:20 AM EDT us Yelitza Meyers MD LAB BLOOD BKR SHAWNATony MARKUS Final Result [address] [address] * (ABNORMAL) Comprehensive metabolic panel (04/17/2019 8:45 AM EST) Pathologist [facility] SODIUM 140 133 - 146 mmol/L [facility] POTASSIUM 4.5 3.3 - 5.1 mmol/L [facility] CHLORIDE 102 96 - 108 mmol/L [facility] CO2 25 21 - 35 mmol/L [facility] BUN 16 6 - 19 mg/dL [facility] CREATININE 1.00 0.5 - 1.5 mg/dL [facility] GLUCOSE 105(H) 70 - 99 mg/dL [facility] ALBUMIN 4.4 3.9 - 4.8 g/dL [facility] TOTAL PROTEIN 7.8 6.5 - 8.0 g/dL [facility] CALCIUM 10.2 8.4 - 10.3 mg/dL [facility] ALKALINE PHOSPHATASE 111 39 - 117 U/L [facility] TOTAL BILIRUBIN 0.4 0.0 - 1.2 mg/dL [facility] AST 19 0 - 37 U/L [facility] ALT 16 0 - 40 U/L [facility] GLOBULIN 3.4 1 - 4.8 g/dL [facility] EGFR 101 >59 mL/min/1.7 3m2 [facility] Comment:If patient is black, multiply result by 1.159. Estimated glomerular filtration rate calculated using the CKD-EPI equation. [place]AP 18 10 - 20 mmol/L [facility] Blood 04/17/2019 8:45 AM EST 04/17/2019 8:47 AM EST us Marcy Benitez CNP LAB BLOOD BKR ORDERABLES F inal Result Performing Organization Address City/[facility]/ZIP Co de Phone Number [address] [address] * (ABNORMAL) CBC and differential (04/17/2019 8:45 AM EST) WBC 9.73 3.40 - 11.20 K/uL [facility] RBC 4.88 4.50 - 5.50 M/uL [facility] HGB 16.2 13.0 - 17.0 g/dL [facility] HCT 48.0 40.0 - 51.0 % [facility] PLT 222 130 - 400 K/uL [facility] MCV 98.4(H) 79.0 - 98.0 fL [facility] MCH 33.2 27.0 - 34.8 pg [facility] MCHC 33.8 31.5 - 36.0 g/dL [facility] RDW 12.5 10.8 - 14.6 % [facility] MPV 9.8 9.4 - 12.4 fl [facility] NRBC 0.00 0.00 /100 WBCs [facility] ABSOLUTE NRBC 0.00 0.00 K/uL [facility] DIFF METHOD Auto [facility] NEUTS 67.7 45.30 - 77.70 % [facility] LYMPHS 23.2 12.30 - 39.70 % [facility] MONOS 6.4 4.10 - 12.80 % [facility] EOS 2.1 0 - 7.2 % [facility] BASOS 0.3 0 - 2.80 % [facility] Granulocytes, immature (%) 0.3 0.0 - 0.9 % [facility] ABSOLUTE NEUTS 6.59 1.40 - 7.70 K/uL [facility] ABSOLUTE LYMPHS 2.26 0.60 - 3.20 K/uL [facility] ABSOLUTE MONOS 0.62(H) 0.11 - 0.59 K/uL [facility] ABSOLUTE EOS 0.20 0.01 - 0.50 K/uL [facility] ABSOLUTE BASOS 0.03 0.00 - 0.08 K/uL [facility] Granulocytes, immature 0.03 0.00 - 0.05 K/uL [facility] Blood 04/17/2019 8:45 AM EST 04/17/2019 8:47 AM EST us Marcy Benitez CONTRACT PAR[place]GAL LAB BLOOD BKR ORDERABLES F inal Result [facility] [address] [place] [address] from Last 3 Months or Most Recently Relevant to Health Maintenance Insurance [facility] MEDICARE PART A & B [facility] MEDICARE PART A & B [facility] Member Subscriber Plan / Payer (Ef fective 1993-Present) Name:Garrick Matthew Relation to Subscriber:Child Name:FLORIDA MATTHEW Date of :2001 (Home) Address: [address] [place] [address] Payer ID:[id number] (NAIC) Group ID:[id number] Type:PPO [id number] B [facility] Member Subscriber Plan / Payer (Ef fective 1993-Present) Name:Garrick Matthew Relation to Subscriber:Child Name:FLORIDA MATTHEW Date of :2001 (Home) Address: [address] [place] [address] Payer ID:[id number] (NAIC) Group ID:[id number] Type:PPO Address[id number] B [facility] Address: [address] [place] [address] [facility] MEDICARE PART A & B [facility] Address: [address] [place] [address] [facility] MEDICARE PART A & B [facility] MEDICARE PART A & B [facility] [address] [place], [place] [address]HEALTH MEDICARE PART A & B [facility] Member Subscriber Plan / Payer (Ef fective 1993-Present) Name:Garrick Matthew Relation to Subscriber:Child Name:FLORIDA MATTHEW Date of :2001 (Home) Address: [address] [place] [place] [address] Payer ID:[id number] (NAIC) Group ID:[id number] Type:PPO Address[address] B Advance Directives For more information, please contact: [phone] (9AM - 5PM [facility]/[facility], Tuesday-Tuesday) Documents on File Type Date Recorded Patient 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 Expl anation Healthcare Proxy 11/09/2023 1:07 PM Legal Guardianship 11/09/2023 1:07 PM Jimmy ed * Full Code (Latest Code Status on File) Date Activated Date Inactivated Comments 11/07/2023 7:32 AM Question Answer Comments Code Status Confirmed With: Patient Care Teams Thermal Cutter Hand Relationship Specialty Start Date End Date Kentrell Van MD [address] [place] [address] [place] [address] PCP - General Internal Medicine 10/13/17 Tj Membreno MD 06/09/17 Additional Source Comments The information contained in this document represents components of the legal health record. It is not the complete legal health record.[facility]
--- OUTSIDE RECORDS SUMMARY | 2025-04-27 08:27 | XMS_ITS | Clinical Summary ---
Author Organization [facility] Address [address] [address] Phone Care Team Providers Care Core Machine Tender Name Role Phone Kentrell Van MD Primary Care Provider [phone] Allergies Active Allergy Reactions Criticality Noted Date Comments Banana 04/15/2023 Other reaction(s): tested with positive allergy Carbamazepine Rash Low 04/15/2023 Codeine Rash Low 04/15/2023 Fluticasone Anaphylaxis High 04/15/2023 Fluticasone-Salmeterol Anaphylaxis High 04/15/2023 Ibuprofen Other (see comments) 11/22/2023 Elevates [place] level Latex Other (see comments) 04/15/2023 [place] Pulp Anaphylaxis High 11/22/2023 Quetiapine Rash Low 04/15/2023 Ziprasidone Rash Low 04/15/2023 Ziprasidone Hcl 10/13/2017 Medications allopurinol (ZYLOPRIM) 100 MG tablet Take [...] kit, 1 Refills, Soft Stop, 04/14/22 10:51:00 [id number], 190, cm, 01/12/22 15:25:00 EDT, Height, 113.64, [...] day in the evening 3 Active Multiple Vitamins-[place] als (CENTRUM ADULT PO) Take by mouth Active Snowflake-3 Fatty Acids (FISH OIL PO) Take by mouth Active sildenafil (VIAGRA) 100 MG tablet Take 100 mg by mouth 1 (one) time each day if needed for erectile dysfunction Active clonazePAM (KlonoPIN) 0.5 MG tablet TAKE ONE TABLET NIGHTLY AND UP TO 5 TIMES A WEEK NEEDED FOR ACUTE DISTRESS 5 Active divalproex (DEPAKOTE) 500 MG 24 hr tablet TAKE 2 TABLETS BY MOUTH EVERY NIGHT AT NOON AND AT BEDTIME 5 Active famotidine (PEPCID) 40 MG tablet 5 Active Active Problems Problem Noted Date Diagnosed Date Stage 3b chronic kidney disease 10/08/2024 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 [place] adverse reaction 01/11/2023 Essential (primary) hypertension 01/11/2023 Resolved Problems Problem Noted Date Diagnosed Date Resolved Date Stage 3a chronic kidney disease 01/11/2023 10/08/2024 Encounters Date Type Department Care Team Description 04/08/2025 2:30 PM EST Office Visit [facility] [place], [address] [place] [phone] Chon Banks MD Stage 3b chronic kidney disease (HCC) (Primary Dx); [place] adverse reaction <Sequela> 04/08/2025 Documentation Only [facility] [address] [place] [address] Alejandra Carranza from Last 3 Months Immunizations Immunization Administration Dates Next Due Hepatitis [...] Visit [facility] [place], [address] [place] [phone] Chon Banks MD [address] [place] [address] [place] [address] Health Maintenance Due Date Last Done Comments Hepatitis B Vaccine (3 of 3 - 3-dose series) 08/31/2000 06/15/2000, 05/11/2000 Pneumococcal Vaccine: Peds ( 0 to 5 Years) and At-Risk Patients (6 to 49 Years) (2 of 2 - PCV) 01/11/2018 01/11/2017 Influenza Vaccine (#1) 2025 2, 02/20/2021, 04/07/2020, Additional history exists Insurance Medicare [facility] Medicaid [place] Care Teams Core Machine Tender Relationship Specialty Start Date End Date Kentrell Van MD [place] [employer] [address] [place] [address] [place] PCP - General Internal Medicine 12/27/22
--- OUTSIDE RECORDS SUMMARY | 2025-04-27 08:27 | XMS_ITS | Encounter Summary ---
Author Organization [facility] [place], Address [address] [place] [address] Phone Care Team Providers Care Puttier Name Role Phone Kentrell Van MD Primary Care Provider [phone] Encounter Details Date Type Department Care Team (Late st Contact Info) Description 10/08/2024 Documentation Only [facility] [address] [place] [address] Alejandra Carranza [address] [place] [phone] Social History Tobacco Use Types Packs/Day Years [...] Visit [facility] Jake FREITAS [address] [place] [phone] Chon Banks MD [address] [place] [address] [place] [address] documented as of this encounter Visit Diagnoses Not on filedocumented in this encounter Care Teams Puttier Relationship Specialty Start Date End Date Kentrell Van MD [place] WELL SHOOTER [address] [place] [address] [address] [place], [place] PCP - General Internal Medicine 12/27/22 documented as of this encounter
--- OUTSIDE RECORDS SUMMARY | 2025-04-27 08:27 | XMS_ITS | Encounter Summary ---
Author Organization [facility] [place], Address [address] [place] [address] Phone Care Team Providers Care Television Reporter Name Role Phone Kentrell Van MD Primary Care Provider [phone] Encounter Details Date Type Department Care Team (Late st Contact Info) Description 04/15/2023 Documentation Only [facility] Dr Jake [address] [place] [address] Chon Banks MD [address] [place] [address] [place] [phone] Social History Tobacco Use Types Packs/Day Years [...] Visit [facility] Dr Jake [address] [place] [phone] Chon Banks MD [address] [place] [address] [place] [address] documented as of this encounter Visit Diagnoses Not on filedocumented in this encounter Care Teams Television Reporter Relationship Specialty Start Date End Date Kentrell Van MD [place] FACING BASTER [address] [place] [address] [address] [place] PCP - General Internal Medicine 12/27/22 documented as of this encounter
--- OUTSIDE RECORDS SUMMARY | 2025-04-27 08:27 | XMS_ITS | Encounter Summary ---
Author Organization [facility] Address [address] [facility] [address] [place] [address] Phone Care Team Providers Care Special Education Associate Name Role Phone Kentrell Van MD Primary Care Provider [phone] Tj Membreno MD Unavailable Evavai emmanuelle Encounter Details Date Type Department Care Team (Latest Contact Info) Description 01/13/2023 Transcribe Orders Virtual Department [address] [place] [address] Chon Banks MD [address] [facility] [address] [place] [address] [email or web address] Stage 3a chronic kidney disease (CKD) (Primary [...] Primary documented in this encounter Care Teams Special Education Associate Relationship Specialty Start Date End Date Kentrell Van MD [address] [place] [address] PCP - General Internal Medicine 10/13/17 Tj Membreno MD 06/09/17 documented as of this encounter Additional Source Comments The information contained in this document represents components of the legal health record. It is not the complete legal health record.[facility]
--- OUTSIDE RECORDS SUMMARY | 2025-04-27 08:27 | XMS_ITS | Encounter Summary ---
Author Organization [facility] Address [address] [facility] [address] [place] [address] Phone Care Team Providers Care Gunite Mixer Name Role Phone Kentrell Van MD Primary Care Provider [phone] Tj Membreno MD Unavailable Yesenia handley Encounter Details Date Type Department Care Team (Late st Contact Info) Description 11/07/2023 Procedure Pass [place] Admitting Dept - Virtual Department [address] [place] [address] Social History Tobacco Use Types Packs/Day Years [...] on filedocumented in this encounter Care Teams Gunite Mixer Relationship Specialty Start Date End Date [place], Kentrell Venkata, MD [address] [place] [address] PCP - General Internal Medicine 10/13/17 Tj Membreno MD 06/09/17 documented as of this encounter Additional Source Comments The information contained in this document represents components of the legal health record. It is not the complete legal health record.[facility]
--- OUTSIDE RECORDS SUMMARY | 2025-04-27 08:27 | XMS_ITS | Encounter Summary ---
Author Organization [facility] [place], Address [address] [place] [address] Phone Care Team Providers Care Die Cutter Diamond Name Role Phone Kentrell Van MD Primary Care Provider [phone] Encounter Details Date Type Department Care Team (Late st Contact Info) Description 04/08/2025 Documentation Only [facility] [address] [place] [address] Alejandra Carranza [address] [place] [phone] Social History Tobacco Use Types Packs/Day Years [...] Visit [facility] Jake FREITAS [address] [place] [phone] Chon Banks MD [address] [place] [address] [place] [address] documented as of this encounter Visit Diagnoses Not on filedocumented in this encounter Care Teams Die Cutter Diamond Relationship Specialty Start Date End Date Kentrell aVn MD [place] WEIGHTER [address] [place] [address] [address] [place], [place] PCP - General Internal Medicine 12/27/22 documented as of this encounter
--- OUTSIDE RECORDS SUMMARY | 2025-04-27 08:28 | XMS_ITS | Encounter Summary ---
Author Organization [facility] Address [address] [facility] [address] [place] [address] Phone Care Team Providers Care Depot Manager Name Role Phone Kentrell Van MD Primary Care Provider [phone] Tj Membreno MD Unavailable Yseenia handley Encounter Details Date Type Department Care Team (Latest Contact Info) Description 04/17/2019 Transcribe Orders [facility] Phleb Lisette 10 [facility] 2nd [place] [address] Marcy Benitez, CONCRETE STONE FABRICATING SUPERVISOR 10 [place] [address] [email or web address] Gastroesophageal reflux disease, esophagitis presence not specified [...] EST) SODIUM 140 133 - 146 mmol/L [facility] POTASSIUM 4.5 3.3 - 5.1 mmol/L [facility] CHLORIDE 102 96 - 108 mmol/L [facility] CO2 25 21 - 35 mmol/L [facility] BUN 16 6 - 19 mg/dL [facility] CREATININE 1.00 0.5 - 1.5 mg/dL [facility] GLUCOSE 105(H) 70 - 99 mg/dL [facility] ALBUMIN 4.4 3.9 - 4.8 g/dL [facility] TOTAL PROTEIN 7.8 6.5 - 8.0 g/dL [facility] CALCIUM 10.2 8.4 - 10.3 mg/dL [facility] ALKALINE PHOSPHATASE 111 39 - 117 U/L [facility] TOTAL BILIRUBIN 0.4 0.0 - 1.2 mg/dL [facility] AST 19 0 - 37 U/L [facility] ALT 16 0 - 40 U/L [facility] GLOBULIN 3.4 1 - 4.8 g/dL [facility] EGFR 101 >59 mL/min/1.7 3m2 [facility] Comment:If patient is black, multiply result by 1.159. Estimated glomerular filtration rate calculated using the CKD-EPI equation. ANION GAP 18 10 - 20 mmol/L [facility] Blood 04/17/2019 8:45 AM EST 04/17/2019 8:47 AM EST Marcyflorentino Jonesjose Benitez [facility] LAB BLOOD BKR ORDERABLES F inal Result [address] [id number] * (ABNORMAL) CBC and differential (04/17/2019 8:45 AM EST) WBC 9.73 3.40 - 11.20 K/uL [facility] RBC 4.88 4.50 - 5.50 M/uL [facility] HGB 16.2 13.0 - 17.0 g/dL [facility] HCT 48.0 40.0 - 51.0 % [facility] PLT 222 130 - 400 K/uL [facility] MCV 98.4(H) 79.0 - 98.0 fL [facility] MCH 33.2 27.0 - 34.8 pg [facility] MCHC 33.8 31.5 - 36.0 g/dL [facility] RDW 12.5 10.8 - 14.6 % [facility] MPV 9.8 9.4 - 12.4 fl [facility] NRBC 0.00 0.00 /100 WBCs [facility] ABSOLUTE NRBC 0.00 0.00 K/uL [facility] DIFF METHOD Auto [facility] NEUTS 67.7 45.30 - 77.70 % [facility] LYMPHS 23.2 12.30 - 39.70 % [facility] MONOS 6.4 4.10 - 12.80 % [facility] EOS 2.1 0 - 7.2 % [facility] BASOS 0.3 0 - 2.80 % [facility] Granulocytes, immature (%) 0.3 0.0 - 0.9 % [facility] ABSOLUTE NEUTS 6.59 1.40 - 7.70 K/uL [facility] ABSOLUTE LYMPHS 2.26 0.60 - 3.20 K/uL [facility] ABSOLUTE MONOS 0.62(H) 0.11 - 0.59 K/uL [facility] ABSOLUTE EOS 0.20 0.01 - 0.50 K/uL [facility] ABSOLUTE BASOS 0.03 0.00 - 0.08 K/uL [facility] Granulocytes, immature 0.03 0.00 - 0.05 K/uL [facility] Blood 04/17/2019 8:45 AM EST 04/17/2019 8:47 AM EST Marcy Benitez [facility] LAB BLOOD BKR ORDERABLES F inal Result [facility] [address] [place], [place] [phone] documented in this encounter Visit Diagnoses Diagnosis Gastroesophageal reflux disease, esophagitis presence not specified- Primary Liver dysfunction Unspecified disorder of liver documented in this encounter Care Teams Depot Manager Relationship Specialty Start Date End Date Kentrell Van MD [address] [place] [address] [place] [address] [phone] PCP - General Internal Medicine 10/13/17 Tj Membreno MD 06/09/17 documented as of this encounter Additional Source Comments The information contained in this document represents components of the legal health record. It is not the complete legal health record.[facility]
--- OUTSIDE RECORDS SUMMARY | 2025-04-27 08:28 | XMS_ITS | Encounter Summary ---
Author Organization [facility] Address [address] [facility] [address] [place] [address] Phone Care Team Providers Care Cost Controller Name Role Phone Kentrell Van MD Primary Care Provider [phone] Tj Membreno MD Unavailable Unavai lable Encounter Details Date Type Department Care Team (Late st Contact Info) Description 09/22/2023 Prep for Surgery [facility] [address] [place] [address] Kelle Gilmore MD [address] [facility], 2nd [place] [address] [email or web address] Social History Tobacco Use Types Packs/Day Years [...] on filedocumented in this encounter Care Teams Cost Controller Relationship Specialty Start Date End Date Kentrell Van MD [address] [place] [id number] PCP - General Internal Medicine 10/13/17 Tj Membreno MD 06/09/17 documented as of this encounter Additional Source Comments The information contained in this document represents components of the legal health record. It is not the complete legal health record.[facility]
--- OUTSIDE RECORDS SUMMARY | 2025-04-27 08:28 | XMS_ITS | Clinical Summary ---
Author Organization [facility] Address [address] [place] [address] Care Team Providers Care Motor Vehicle Licence Examiner Name Role Phone Kentrell Van MD Primary Care Provider [phone] Allergies Active Allergy Reactions Criticality Noted Date Comments Banana Other (See Comments) Low 11/30/2024 Carbamazepine Other (See Comments),Rash/Dermat itis Low 10/13/2017 Codeine Rash/Dermatitis Low 04/15/2023 Fluticasone Anaphylaxis,Other (See Comments) High 10/13/2017 Fluticasone-Salmeterol Anaphylaxis,Other (See Comments) High 04/15/2023 Other Reaction(s): throat closed up Ibuprofen Other (See Comments) Low 11/22/2023 Elevates [place] level Latex Other (See Comments) Low 04/15/2023 [...] nightly. 90 capsule 3 02/19/20 25 Active scopolamine (TRANSDERM-SCOP) patchIndications:N ausea and vomiting, unspecified vomiting type Place 1 patch on the skin every third day (72 hrs). 10 patch 3 04/10/20 25 Active Active Problems Problem Noted Date Diagnosed Date Abiodun angina 05/02/2024 Smoking 05/02/2024 Encounters Date Type Department Care Team Description 04/10/2025 3:30 PM EST Office Visit [address] [phone] Pinky Rosario MD Nausea and vomiting, unspecified vomiting type (Primary Dx) from Last 3 Months Immunizations Immunization Administration Dates Next Due Covid-19 mRNA Bivalent Vacci ne - Pfizer 30 mcg/0.3mL 12+ 10/14/2022,02/24/2022 Hepatitis B 06/15/2000,05/11/2000 Influenza Virus Trivalent Sp lit Vaccine (MDV) IM 02/22/2025,02/24/2024,02/21/2023,02/24,02/20/2021,02/16/2019,02/15/2018 ,02/01/2018,03/16/2017,04/02/2016,03/07,03/15/2015,03/21/2012 Influenza Whole 04/07/2020 Influenza, Trivalent (FLUARI X, AFLURIA, FLULAVAL, FLUZONE) Preservative Free IM 02/16/2019 Influenza, Unspecified 02/24/2022,2020,02/16/2019,02/15,02/01/2018,03/16/2017,04/02/2016 ,04/02/2015,03/15/2015,03/21/2012 MMR 05/06/1995,08/04/1990 Pneumococcal Conjugate 20-Valent 02/18/2023 Pneumococcal Polysaccharide 23-Valent 01/11/2017 Tdap 09/29/2015,05/11/2000 Family History * Patient is adopted Relation Name Status Comments Father Unknown Mother Unknown Social History Tobacco Use Types Packs/Day Years Used Date Smoking Tobacco: Former Cigarettes Tobacco Cessation:Counseling Given: Not Answered Alcohol Use Standard Drinks/Week Comments Not Currently 0 (1 standard drink = 0.6 oz pur e alcohol) [facility] Utilities Answer Date Recorded In the past 12 months has e electric, gas, oil, or water company threatened to shut off services in your [...] any time in the past 12 m [facility], were you homeless or living in a usp (including now)? No 05/02/2024 Sex and Gender Information Value Date Recorded Sex Assigned at Male 05/01/2024 9:17 PM EST Legal Sex Male 6:24 PM EST Gender Identity Male 05/01/2024 9:17 PM EST Sexual Orientation Choose not to disclose 2023 9:17 PM EST Last Filed Vital Signs Vital Sign Reading Time Taken Comments Blood Pressure 110/84 04/10/2025 3:38 PM EST Pulse 66 04/10/2025 3:38 PM EST Temperature 36.1 C (96.9 F) 05/02/2024 2:11 AM EST Respiratory Rate 18 05/02/2024 2:11 AM EST Oxygen Saturation 94% 05/02/2024 2:11 AM EST Inhaled Oxygen Concentration - - Weight 106 kg (234 lb 9.6 oz) 04/10/2025 3:38 PM EST Height 190.5 cm (6' 3 ) 04/10/2025 3:38 PM EST Body Mass Index 29.32 04/10/2025 3:38 PM EST Plan of Treatment Health Maintenance Due Date Last Done Comments Hepatitis C Virus Screening 1989 Hepatitis B Vaccines (3 of 3 - 3-dose series) 08/31/2000 06/15/2000, 05/11/2000 DTaP/Tdap/Td Vaccines (3 - Td or Tdap) 09/28/2025 09/29/2015, 05/11/2000 Pneumococcal Vaccine: Pediatric (0-5 Years) and At-Risk Patients (6 to 49 Years) Aged Out 02/18/2023, 01/11/2017 No longer eligibl e based on patient's age to complete this topic HIV Screening Completed 05/02/2024 COVID-19 Vaccine Completed 02/22/2025, , 02/21/2023, Additional history exists Influenza Vaccine Completed 02/22/2025, , 02/21/2023, Additional history exists HPV Vaccines (No Doses Required) Completed Procedures Procedure Name Priority Date/Time Associated Diagnosis Comments HIV-1 RNA VIRAL LOAD REFLEX HIV-1 GENOTYPE - HIV1RG Routine 05/02/2024 11:20 AM EST from Last 3 Months or Most Recently Relevant to Health Maintenance Results * HIV-1 RNA Viral Load reflex HIV-1 Genotype (05/02/2024 11:20 AM EST) HIV-1 RNA (copies/mL) Not Detected <30 copies/m L 05/09/2024 12:40 PM EST [facility] HIV-1 RNA (log10) Not Detected <1.46 log copies/m L 05/09/2024 12:40 PM EST [facility] Interpretation Not Detected 05/09/20 12:40 PM EST [facility] Comment:Performed by FDA nathalie roved [employer] TMA. Linear range is 30 to 10,000,000 copies/mL. HIV Genotyping is not recommended for viral loads below 2,000 copies/mL. Not FDA approved to diagnose HIV infection. Blood Plasma specimen / Unknown 05/02/2024 11:20 AM EST 05/02/2024 11:46 AM EST us Erick Alva MD LAB BLOOD ORDERABLES Final R esult [facility] [address] [place], [place] 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 Plenary Guardian Care Teams Motor Vehicle Licence Examiner Relationship Specialty Start Date End Date Kentrell Van MD [address] [place] [address] PCP - General Internal Medicine 10/22/24
== END 2025-04-27 08:26 | disposition home or self-care (01) ==
LOC: HO.US 08:25
PROVIDERS: PCP Internal Medicine; Visit Provider Internal Medicine
DX: N50.3 Cyst of epididymis (principal)
CPT/HCPCS: 76870

== ENCOUNTER 2025-05-21 09:54 | Outpatient (REF) | payer MEDICARE, BC, MEDICAID, SELFPAY ==
--- OUTSIDE RECORDS SUMMARY | 2024-08-01 03:30 | XMS_ITS ---
Author Organization [facility] jenelle [place] Address [address] [facility] [place] [address] Care Team Providers Care Optician Name Role Phone Kentrell Van MD Primary Care Provider UnavailDjea Benson [phone] Encounters Encounter Location Date Provider Diagnosis [address] [place] [address] 08/01/2024 Deja Hernandez Plan Of Treatment No Information Progress Notes * Marko MATTHEWOB:1990 ( 35 yo M)Acc No.[id number]:08/01/2024 Progress Notes Patient: Garrick STOUT Provider: Mike Hernandez DPM :1990 A ge:34 Y S ex:Male Date:08/01/2024 Address:[address] [id number] Pcp:Kentrell Van MD Subjective: * Chief Complaints: * * Medical History: Objective: * Vitals: Assessment: Plan: * Treatment: * Images: * The named appointment provid er may or may not be the originator of this progress note, and it is not deemed complete until electronically signed by the appointment provider. Sign off status: Pending * Provider: Mike Hernandez DPM Date: 0 08/01/2024 Generated for Rian quevedo/Trena/Mariposaitting on: 07/22/2024 12:00 PM EST
--- OUTSIDE RECORDS SUMMARY | 2025-05-21 12:00 | XMS_ITS | Patient Health Record ---
Author Organization [facility] Address [address] [facility] [place] [address] Care Team Providers Care Admissions Manager Name Role Phone Carlota ROJO, Kentrell Primary Care Provider Deja Hernandez [phone] Reason For Referral No Information Encounters Encounter Location Date Provider [facility] [address] [place] [address] 06/18/2024 Deja Hernandez [address] [address] 07/03/2024 Deja Hernandez Plan Of Treatment No Information Insurance Providers Payer Name Payer Address Payer Phone Subscriber Number Group Number Insured Name Patient Relationship to Insured Coverage Start Date Coverage End Date Medicare National [facility] [address] [place] [address] [id number] Garrick Jeter Self - patient is the insured [facility] [address] [place] [address] [id number] Garrick Jeter Self - patient is the insured
--- OUTSIDE RECORDS SUMMARY | 2025-05-21 12:00 | XMS_ITS | Encounter Summary ---
Author Organization [facility] Address [address] [facility] [address] [place] [address] Phone Care Team Providers Care Heel Brusher Name Role Phone Kentrell Van MD Primary Care Provider [phone] Tj Membreno MD Unavailable Yesenia handley Encounter Details Date Type Department Care Team (Late st Contact Info) Description 11/07/2023 Procedure Pass OR Admitting Dept - Virtual Department [address] [place] [address] Social History Tobacco Use Types Packs/Day Years [...] on filedocumented in this encounter Care Teams Heel Brusher Relationship Specialty Start Date End Date [place], Kentrell Venkata, MD [address] [place] [address] PCP - General Internal Medicine 10/13/17 Tj Membreno MD 06/09/17 documented as of this encounter Additional Source Comments The information contained in this document represents components of the legal health record. It is not the complete legal health record.[facility]
--- OUTSIDE RECORDS SUMMARY | 2025-05-21 12:00 | XMS_ITS | Clinical Summary ---
Author Organization [facility] Address [address] [address] Phone Care Team Providers Care Osteopathic Medicine Teacher Name Role Phone Kentrell Van MD Primary Care Provider [phone] Tj Membreno MD Unavailable Unavai lable Allergies Active Allergy Reactions Criticality Noted Date Comments Banana 04/15/2023 Other reaction(s): tested with positive allergy Fluticasone 10/13/2017 Fluticasone Propion-Salmeterol 11/22/2023 Other Reaction(s): throat closed up Ziprasidone Hcl 10/13/2017 Ibuprofen Other (See Comments) 11/22/2023 Elevates [place] level Nut Flavor Anaphylaxis High 11/22/2023 [place] Anaphylaxis High 11/22/2023 Quetiapine 10/13/2017 Carbamazepine 10/13/2017 [...] EDT) TSH 0.91 0.27 - 4.20 uIU/mL [facility] Blood 09/19/2023 10:1 6 AM EDT 09/19/2023 10:20 AM EDT us Yelitza Meyers MD LAB BLOOD BKR ORDE RABCRISTOPHER Final Result [address] [address] * [place] level (09/19/2023 10:16 AM EDT) LITHIUM 0.55 0.5 - 1.00 mmol/L [facility] Blood 09/19/2023 10:1 6 AM EDT 09/19/2023 10:20 AM EDT us Yelitza Meyers MD LAB BLOOD BKR ORDE RABLES Final Result Performing Organization Address City/[facility]/ZIP Co de Phone Number [address] [address] * Valproic acid (09/19/2023 10:16 AM EDT) VALPROIC ACID 62.7 50.0 - 100.0 ug/mL [facility] Blood 09/19/2023 10:1 6 AM EDT 09/19/2023 10:20 AM EDT us Yelitza Meyers MD LAB BLOOD BKR SHAWNATony MARKUS Final Result [address] [address] * (ABNORMAL) Comprehensive metabolic panel (04/17/2019 8:45 AM EST) Pathologist [facility] SODIUM 140 133 - 146 mmol/L [facility] [...] ORDERABLES F inal Result Performing Organization Address City/[facility]/ZIP Co de Phone Number [address] [address] * (ABNORMAL) CBC and differential (04/17/2019 8:45 [...] 04/17/2019 8:47 AM EST us Marcy Benitez [facility] LAB BLOOD BKR ORDERABLES F inal Result [facility] [address] [place] [address] from Last 3 Months or Most Recently Relevant to Health Maintenance Insurance [facility] MEDIC[facility] PART A & B [facility] MEDICARE PART A & B [facility] Member Subscriber Plan / Payer (Ef fective 1993-Present) Name:Garrick Matthew Relation to Subscriber:Child Name:FLORIDA MATTHEW Date of :2001 (Home) Address: [address] [place] [address] Payer ID:[id number] (NAIC) Group ID:[id number] Type:PPO Address[id number] & B [facility] Member Subscriber Plan / Payer (Ef fective 1993-Present) Name:Garrick Matthew Relation to Subscriber:Child Name:FLORIDA MATTHEW Date of :2000 (Home) Address: [address] [place] [address] Payer ID:[id number] (NAIC) Group ID:[id number] Type:PPO Address: [id number] & B [facility]IC[facility] PART A & B [facility]IC[facility] PART A & B [facility] MEDICARE PART A & B [facility] [address] [place], [place] [address]HEALTH MEDICARE PART A & B [facility] Member Subscriber Plan / Payer (Ef fective 1993-Present) Name:Garrick Matthew Relation to Subscriber:Child Name:FLORIDA MATTHEW Date of :2001 (Home) Address: [address] [place] [address] Payer ID:[id number] (NAIC) Group ID:[id number] Type:PPO Address: [address] B Advance Directives For more information, please contact: [phone] (9AM - 5PM [place]/[facility], Tuesday-Tuesday) Documents on File Type Date Recorded 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 It is not the complete legal health record.[facility]
--- OUTSIDE RECORDS SUMMARY | 2025-05-21 12:01 | XMS_ITS | Encounter Summary ---
Author Organization [facility] Address [address] [facility] [address] [place] [address] Phone Care Team Providers Care Dining Car Server Name Role Phone Kentrell Van MD Primary Care Provider [phone] Tj Membreno MD Unavailable Yesenia handley Encounter Details Date Type Department Care Team (Latest Contact Info) Description 04/17/2019 Transcribe Orders [facility] Phleb Lisette 10 [facility] 2nd [place] [address] Marcy Benitez, SQL SSRS DEVELOPER [address] [place] [address] [email or web address] Gastroesophageal reflux disease, esophagitis [...] EST) SODIUM 140 133 - 146 mmol/L [facility] POTASSIUM 4.5 3.3 - 5.1 mmol/L [facility] CHLORIDE 102 96 - 108 mmol/L [facility] CO2 25 21 - 35 mmol/L [facility] BUN 16 6 - 19 mg/dL [facility] CREATININE 1.00 0.5 - 1.5 mg/dL [facility] GLUCOSE 105(H) 70 - 99 mg/dL [facility] ALBUMIN 4.4 3.9 - 4.8 g/dL [facility] TOTAL PROTEIN 7.8 6.5 - 8.0 g/dL [facility] CALCIUM 10.2 8.4 - 10.3 mg/dL [facility] ALKALINE PHOSPHATASE 111 39 - 117 U/L [facility] TOTAL BILIRUBIN 0.4 0.0 - 1.2 mg/dL [facility] AST 19 0 - 37 U/L [facility] ALT 16 0 - 40 U/L [facility] GLOBULIN 3.4 1 - 4.8 g/dL [facility] EGFR 101 >59 mL/min/1.7 3m2 [facility] Comment:If patient is black, multiply result by 1.159. Estimated glomerular filtration rate calculated using the CKD-EPI equation. ANION GAP 18 10 - 20 mmol/L [facility] Blood 04/17/2019 8:45 AM EST 04/17/2019 8:47 AM EST Marcyflorentino Jonesjose Benitez [facility] LAB BLOOD BKR ORDERABLES F inal Result [address] [id number] * (ABNORMAL) CBC and differential (04/17/2019 8:45 AM EST) WBC 9.73 3.40 - 11.20 K/uL [facility] RBC 4.88 4.50 - 5.50 M/uL [facility] HGB 16.2 13.0 - 17.0 g/dL [facility] HCT 48.0 40.0 - 51.0 % [facility] PLT 222 130 - 400 K/uL [facility] MCV 98.4(H) 79.0 - 98.0 fL [facility] MCH 33.2 27.0 - 34.8 pg [facility] MCHC 33.8 31.5 - 36.0 g/dL [facility] RDW 12.5 10.8 - 14.6 % [facility] MPV 9.8 9.4 - 12.4 fl [facility] NRBC 0.00 0.00 /100 WBCs [facility] ABSOLUTE NRBC 0.00 0.00 K/uL [facility] DIFF METHOD Auto [facility] NEUTS 67.7 45.30 - 77.70 % [facility] LYMPHS 23.2 12.30 - 39.70 % [facility] MONOS 6.4 4.10 - 12.80 % [facility] EOS 2.1 0 - 7.2 % [facility] BASOS 0.3 0 - 2.80 % [facility] Granulocytes, immature (%) 0.3 0.0 - 0.9 % [facility] ABSOLUTE NEUTS 6.59 1.40 - 7.70 K/uL [facility] ABSOLUTE LYMPHS 2.26 0.60 - 3.20 K/uL [facility] ABSOLUTE MONOS 0.62(H) 0.11 - 0.59 K/uL [facility] ABSOLUTE EOS 0.20 0.01 - 0.50 K/uL [facility] ABSOLUTE BASOS 0.03 0.00 - 0.08 K/uL [facility] Granulocytes, immature 0.03 0.00 - 0.05 K/uL [facility] Blood 04/17/2019 8:45 AM EST 04/17/2019 8:47 AM EST Marcy Benitez [facility] LAB BLOOD BKR ORDERABLES F inal Result [facility] [address] [place], [place] [phone] documented in this encounter Visit Diagnoses Diagnosis Gastroesophageal reflux disease, esophagitis presence not specified- Primary Liver dysfunction Unspecified disorder of liver documented in this encounter Care Teams Dining Car Server Relationship Specialty Start Date End Date Kentrell Van MD [address] [place] [address] [place] [address] [phone] PCP - General Internal Medicine 10/13/17 Tj Membreno MD 06/09/17 documented as of this encounter Additional Source Comments The information contained in this document represents components of the legal health record. It is not the complete legal health record.[facility]
--- OUTSIDE RECORDS SUMMARY | 2025-05-21 12:01 | XMS_ITS | Clinical Summary ---
Author Organization [facility] Address [address] [place] [address] Care Team Providers Care Shower Attendant Name Role Phone Kentrell Van MD Primary Care Provider [phone] Allergies Active Allergy Reactions Criticality Noted Date Comments Banana Other (See Comments) Low 11/30/2024 Carbamazepine Other (See Comments),Rash/Dermat itis Low 10/13/2017 Codeine Rash/Dermatitis Low 04/15/2023 Fluticasone Anaphylaxis,Other (See Comments) High 10/13/2017 Fluticasone-Salmeterol Anaphylaxis,Other (See Comments) High 04/15/2023 Other Reaction(s): throat closed up Ibuprofen Other (See Comments) Low 11/22/2023 Elevates [place] level Latex Other (See Comments) Low 04/15/2023 [...] Description 04/10/2025 3:30 PM EST Office Visit [address] [id number] Norma Rosario MD Nausea and vomiting, unspecified vomiting [...] drink = 0.6 oz pur e alcohol) [facility] Utilities Answer Date Recorded In the [...] any time in the past 12 m [facility], were you homeless or living in a fdc (including now)? No 05/02/2024 Sex and Gender [...] 04/10/2025 3:38 PM EST Plan of Treatment Upcoming Encounters Date Type Department Care Team (Late st Contact Info) Description 08/12/2025 2:00 PM EDT Office Visit [facility] [address] [place] [address] Norma Rosario MD [address] [place] [phone] Health Maintenance Due Date Last Done Comments [...] Detected <30 copies/m L 05/09/2024 12:40 PM [facility] HIV-1 RNA (log10) Not Detected <1.46 log copies/m L 05/09/2024 12:40 PM [facility] Interpretation Not Detected 05/09/20 12:40 PM [facility] Comment:Performed by FDA nathalie roved mig33 Aptima TMA. Linear range is 30 to 10,000,000 copies/mL. HIV Genotyping is not recommended for viral loads below 2,000 copies/mL. Not FDA approved to diagnose HIV infection. 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 Plenary Guardian Care Teams Shower Attendant Relationship Specialty Start Date End Date Kentrell Van MD [address] [place] [address] PCP - General Internal Medicine 10/22/24
--- OUTSIDE RECORDS SUMMARY | 2025-05-21 12:01 | XMS_ITS | Encounter Summary ---
Author Organization [facility] Address [address] [place] [phone] Phone Care Team Providers Care Pbx Mechanic Name Role Phone Kentrell Van MD Primary Care Provider [phone] Tj Membreno MD Unavailable Unavai lable Encounter Details Date Type Department Care Team (Late st Contact Info) Description 09/22/2023 Prep for Surgery [facility] General Surgical Care [address] [place] [address] Kelle Gilmore MD [address] [facility], [address]nd [place] [address] [email or web address] Social History Tobacco [...] on filedocumented in this encounter Care Teams Pbx Mechanic Relationship Specialty Start Date End Date Kentrell Van MD [address] [place] [id number] PCP - General Internal Medicine 10/13/17 Tj Membreno MD 06/09/17 documented as of this encounter Additional Source Comments The information contained in this document represents components of the legal health record. It is not the complete legal health record.[facility]
--- OUTSIDE RECORDS SUMMARY | 2025-05-21 12:01 | XMS_ITS | Encounter Summary ---
Author Organization [facility] Address [address] [facility] [address] [place] [address] Phone Care Team Providers Care Batch And Furnace Operator Name Role Phone Kentrell Van MD Primary Care Provider [phone] Tj Membreno MD Unavailable Unavai emmanuelle Encounter Details Date Type Department Care Team (Latest Contact Info) Description 01/13/2023 Transcribe Orders Virtual Department [address] [place] [address] Chon Banks MD [address] [facility] [address] [place] [address] [email or web address] Stage 3a chronic kidney disease [...] Primary documented in this encounter Care Teams Batch And Furnace Operator Relationship Specialty Start Date End Date Kentrell Van MD [address] [place] [phone] PCP - General Internal Medicine 10/13/17 Tj Membreno MD 06/09/17 documented as of this encounter Additional Source Comments The information contained in this document represents components of the legal health record. It is not the complete legal health record.[facility]
[2025-05-21 14:59] LABS: Anion Gap 13 (12-20); Blood Urea Nitrogen 27 mg/dL (9-16); Calcium 9.9 mg/dL (8.4-10.2); Carbon Dioxide 28 mmol/L (22-29); Chloride 104 mmol/L (96-108); Estimated Glomerular Filt Rate 31; Potassium 4.9 mmol/L (3.3-5.1); Sodium 140 mmol/L (135-145)
[2025-05-21 15:10] LABS: Microalbum/Creatinine Ratio Ur 263.6 ug/mg cr (<30); Protein/Creatinine Ratio, Ur 0.59 (<0.2); Total Protein Urine Random 101 mg/dL (<12)
== END 2025-05-21 09:55 | disposition home or self-care (01) ==
LOC: HO.HMGCLDS 09:54
PROVIDERS: Absent Provider Internal Medicine Nephrology; PCP Internal Medicine; Visit Provider Psychiatry & Neurology Psychiatry
DX: N18.32 Chronic kidney disease, stage 3b (principal); T43.595S Adverse effect of other antipsychotics and neuroleptics, sequela; Z79.899 Other long term (current) drug therapy
CPT/HCPCS: 36415; 80051; 80164; 82043; 82306; 82310; 82565; 82570; 82610; 84156; 84520

== ENCOUNTER 2025-06-04 08:52 | Outpatient (REF) | payer MEDICARE, BC, MEDICAID, SELFPAY ==
--- OUTSIDE RECORDS SUMMARY | 2024-08-01 03:30 | XMS_ITS ---
Author Organization [facility] jenelle [place] Address [address] [facility] [place] [address] Care Team Providers Care Environmental Solutions Engineer Name Role Phone Kentrell Van MD Primary Care Provider UnavailDeja Benson [phone] Encounters Encounter Location Date Provider Diagnosis [address] [place] [address] 08/01/2024 Deja Hernandez Plan Of Treatment No Information Progress Notes * Marko MATTHEWOB:1990 ( 35 yo M)Acc No.[id number]:08/01/2024 Progress Notes Patient: Garrick STOUT Provider: Mike Hernandez DPM :1990 A ge:34 Y S ex:Male Date:08/01/2024 Address:[address] [id number] Pcp:Kentrell Van MD Subjective: * Chief Complaints: [...] DPM Date: 0 08/01/2024 Generated for Rian quevedo/Trena/Camsmitting on: 10:53 AM EST
--- OUTSIDE RECORDS SUMMARY | 2025-05-29 23:59 | XMS_ITS | Continuity of Care Document ---
Author Organization [facility] Sandor Espinal Reza Address [address] [place] [address]- Support Name Relationship Address Phone BORSANDI, [place] Personal Relationship Unknown Unava ilable BOROFF, [place] Personal Relationship Unknown Unava ilable BOROFF, [place] father Unknown Unavailable BOROFF, [place] Personal Relationship Unknown Unava ilable BOROFF, [place] father Unknown Unavailable WATTERS, SERGIO mother Unknown Unavailable BOROFF, [place] Personal Relationship Unknown Unava ilable BORHOFF, [place] Personal Relationship Unknown Unav ailable BOROFF, [place] Personal Relationship Unknown Unava ilable BOROFF, [place] Personal Relationship Unknown Unava ilable BORHOFF, [place] Personal Relationship Unknown Unav ailable BOROFF, [place] father Unknown Unavailable BOROFF, [place] father Unknown Unavailable BOROFF, [place] father Unknown Unavailable BOROFF, [place] father Unknown Unavailable BOROFF, [place] Personal Relationship Unknown Unava ilable BOROFF, [place] father Unknown Unavailable BOROFF, [place] Personal Relationship Unknown Unava ilable BOROFF, [place] father Unknown Unavailable BOROFF, [place] Personal Relationship Unknown Unava ilable BOROFF, [place] Personal Relationship Unknown Unava ilable BORHOFF, [place] Personal Relationship Unknown Unav ailable BOROFF, [place] father Unknown Unavailable BOROFF, [place] father Unknown Unavailable BOROFF, [place] Personal Relationship Unknown Unava ilable BOROFF, [place] Personal Relationship Unknown Unava ilable BOROFF, [place] Personal Relationship Unknown Unava ilable BOROFF, [place] Personal Relationship Unknown Unava ilable Care Team Providers Care Store Receiving Specialist Name Role Phone Kentrell Van MD Primary Care Physician [phone] Encounter [facility] Date(s): 05/22/25 - 05/29/25 [facility] [address] [place] [address]- Attending Physician: Kentrell Van MD Encounter Type: Office Visit Allergies, Adverse Reactions, Alerts Substance Criticality Severity Reaction Reaction Severity Status [place] anaphylactic Active Seroquel full body rash Activ e Flonase throat closed up Act mikala Tegretol rash full body Activ e Nuts anaphylactic Active Advair Diskus throat closed up Active Geodon full body rash Activ e Bananas tested with pos itive allergy Active Functional Status Functional Status Assessment Assessment Assessment Component Result Effecti ve Date Disability status [CUBS] I'm Thriving - no identified disability 05/22/25 Do you have difficul ty dressing or bathing No 05/22/25 Do you need any tammi tional assistance or accommodations during your visit No 05/22/25 Because of a physica l, mental, or emotional condition, do you have difficulty doing errands alone such as visiting a physician's office or shopping No 05/22/25 Do you have serious difficulty walking or climbing stairs No 05/22/25 Because of a physica l, mental, or emotional condition, do you have serious difficulty concentrating, remembering, or making decisions Yes 05/22/25 Difficulty communica ting in usual language No 05/22/25 Are you deaf, or do you have serious difficulty hearing No 05/22/25 Difficulty Reading O r Writing No 05/22/25 Are you blind, or do you have serious difficulty seeing, even when wearing glasses No 05/22/25 Immunizations Given and Recorded Vaccine Date Status Refusal Reason influenza virus vaccine, inactivated 02/22/25 Raji rded influenza virus vaccine, inactivated 02/24/24 Raji rded influenza virus vaccine, inactivated 02/21/23 Raji rded influenza virus vaccine, inactivated 02/24/22 Raji rded influenza virus vaccine, inactivated 02/20/21 Raji rded influenza virus vaccine, inactivated 02/16/19 Give n influenza virus vaccine, inactivated 02/15/18 Raji rded influenza virus vaccine, inactivated 1 02/01/18 Re corded influenza virus vaccine, inactivated 2 03/16/17 Re corded influenza virus vaccine, inactivated 04/02/16 Give n influenza virus vaccine, inactivated 04/02/15 Give n influenza virus vaccine, inactivated 03/15/15 Raji rded influenza virus vaccine, inactivated 03/21/12 Raji rded SARS-CoV-2(COVID-19)mRNA-LNP vac([id number]) 02/22/25 Recorded SARS-CoV-2(COVID-19)mRNA-LNP vac([id number]) 02/24/24 Recorded SARS-CoV-2(COVID-19)mRNA-LNP vac([id number]) 02/21/23 Recorded pneumococcal 20-valent conjugate vaccine 02/18/23 Given [id number] 12y+ bivalent booster vax 10/14/22 Recorded [id number] 12y+ bivalent booster vax 02/24/22 Recorded smallpox and monkeypox vaccine 03/23/22 Recorded smallpox and monkeypox vaccine 02/19/22 Recorded SARS-CoV-2 (COVID-19) mRNA BNT-162b2 vac 03/11/21 Recorded SARS-CoV-2 (COVID-19) mRNA BNT-162b2 vac 09/06/20 Given SARS-CoV-2 (COVID-19) mRNA BNT-162b2 vac 08/16/20 Given Influenza Virus Vaccine (oldterm) 04/07/20 Recorde d pneumococcal 23-valent vaccine 01/11/17 Given tetanus/diphtheria/pertussis, acel(Tdap) 09/29/15 Given tetanus/diphtheria/pertussis, acel(Tdap) 05/11/00 Recorded hepatitis B adult vaccine 06/15/00 Recorded hepatitis B adult vaccine 05/11/00 Recorded Measles/Mumps/Rubella Virus Vaccine 05/06/95 Recor ded Measles/Mumps/Rubella Virus Vaccine 08/04/90 Recor ded 1Result Comment: [03/02/2018] radha 2Result Comment: [03/21/2017] radha lin Medications Airsupra 90 mcg-80 mcg/inh inhalation aerosol 2 inhalation, Inhalation, 4 times a day, PRN Wheezing/Shortness of Breath, j45.40, Do not exceed 12puffs in 24 hours, # 2 each, 11 Refills, Maintenance, 10/31/24 9:55:00 AM EDT, Aerosol, [id number], Partial fill upon patient request if the prescription is for a schedule II opioid drug., 2 inhalation Inhalation 4 times a day,PRN:Wheezing/Shortness of Breath,Instr:j45.40, Do not exceed 12 puffs in 24 hours, 191, cm, 09/10/24 10:40:00 EDT, Height, 105, kg, 06/27/24 21:06:00 EST, Dry Weight Start Date: 10/31/24 Status: Ordered Medication Dispense Status: Completed Quantity: 2.0 Unit: each Total Allowed Fills: 12 Fills Dispensed: 0 Albuterol (Eqv-Proventil HFA) 90 mcg/inh inhalation aerosol 1 puffs, Inhalation, Every 4 hours, PRN NEEDED FOR WHEEZING DIRECTED 15 MINUTES BEFORE EXERCISE J 45, # 13.4 Gm, 5 Refills, Maintenance, 12/05/23 8:17:00 AM EDT, [facility] #[id number], 191,cm, 10/06/23 14:34:00 EDT, Height, 110.4, kg, 07/09/22 6:46:00 EST, Dry Weight Start Date: 12/05/23 Status: Ordered Medication Dispense Status: Completed Quantity: 13.4 Unit: g Total Allowed Fills: 1 Fills Dispensed: 0 allopurinol 100 mg oral tablet 100 mg, 1, tablet, By Mouth, Daily, # 90 tablet, Refills 1, Tot. Refills 1, Maintenance, 03/22/25 5:09:00 PM EDT, Route to Pharmacy Electronically, [facility] #[id number], 191, cm, 02/18/25 7:41:00 EDT, Height, 105.9, kg, 03/12/25 8:55:00 EDT, Dry Weight Start Date: 03/22/25 Status: Ordered Medication Dispense Status: Completed Quantity: 90.0 Unit: tablet Total Allowed Fills: 2 Fills Dispensed: 0 benztropine 1 mg oral tablet 0.5 mg, 0.5, tablet, Daily, Refills 0, Maintenance, 01/02/25 1:52:00 PM EDT, Partial fill upon patient request if the prescription is for a schedule II opioid drug. Start Date: 01/02/25 Status: Ordered Medication Dispense Status: Completed Total Allowed Fills: 1 Fills Dispensed: 0 Caplyta 21 mg oral capsule 0 Refills, Maintenance, 05/06/25 12:52:00 PM EST, Partial fill upon patient request if the prescription is for a schedule II opioid drug. Start Date: 05/06/25 Status: Ordered Medication Dispense Status: Completed Total Allowed Fills: 1 Fills Dispensed: 0 Centrum 1 tablet, By Mouth, Daily at bedtime, 0 Refills, Maintenance, 09/13/19 10:45:00 AM EDT Start Date: 09/13/19 Status: Ordered Medication Dispense Status: Completed Total Allowed Fills: 1 Fills Dispensed: 0 chantix 1mg tablet 1 tablet = 1 mg, By Mouth, 2 times a day, 0 Refills, Maintenance, 01/02/25 1:54:00 PM EDT, Partial fill upon patient request if the prescription is for a schedule II opioid drug. Start Date: 01/02/25 Status: Ordered Medication Dispense Status: Completed Total Allowed Fills: 1 Fills Dispensed: 0 cloNIDine 0.1 mg oral tablet 1, tablet, By Mouth, 2 times a day, # 180 tablet, Refills 1, Tot. Refills 1, Maintenance, 02/01/25 2:25:00 PM EDT, Route to Pharmacy Electronically, [facility] #[id number], 191, cm, 01/02/25 13:35:00 EDT, Height, 105, kg, 06/27/24 21:06:00 EST, Dry Weight Start Date: 02/01/25 Status: Ordered Medication Dispense Status: Completed Quantity: 180.0 Unit: tablet Total Allowed Fills: 2 Fills Dispensed: 0 Depakote See Instructions, 250 mg in the morning, 1000 mg in the afternoon, 1000 mg at night., 0 Refills, Maintenance, 08/10/23 9:37:00 AM EST, Partial fill upon patient request if the prescription is for a schedule II opioid drug. Start Date: 08/10/23 Status: Ordered Medication Dispense Status: Completed Total Allowed Fills: 1 Fills Dispensed: 0 Descovy 200 mg-25 mg oral tablet 1 tablet, By Mouth, Daily, ICD-10 Z29.81, # 30 tablet, 0 Refills, Maintenance, 04/16/25 9:39:00 AM EST, Tablet, [facility] #[id number], Partial fill upon patient request if the prescription is for a schedule II opioid drug., 1 tablet By Mouth Daily,Instr:ICD-10 Z29.81, 191, cm, 04/09/25 13:20:00 EST, Height, 105.9, kg, 03/12/25 8:55:00 EDT, Dry Weight Start Date: 04/16/25 Status: Ordered Medication Dispense Status: Completed Quantity: 30.0 Unit: tablet Total Allowed Fills: 1 Fills Dispensed: 0 EpiPen 2-Refugio 0.3 mg injectable kit See Instructions, Intramuscular Once, # 2 kit, 1 Refills, Soft Stop, 03/27/25 10:18:00 AM EDT, [facility] #[id number], 191, cm, 03/27/25 10:03:00 EDT, Height, 105.9, kg, 03/12/25 8:55:00 EDT, Dry Weight Start Date: 03/27/25 Status: Ordered Medication Dispense Status: Completed Quantity: 2.0 Unit: kit Total Allowed Fills: 2 Fills Dispensed: 0 famotidine 40 mg oral tablet 0 Refills, Maintenance, 01/02/25 1:52:00 PM EDT, Partial fill upon patient request if the prescription is for a schedule II opioid drug. Start Date: 01/02/25 Status: Ordered Medication Dispense Status: Completed Total Allowed Fills: 1 Fills Dispensed: 0 Haloperidol See Instructions, PRN as needed for agitation, 10 mg in the morning, 5 mg at midday, 5 mg at dinnertime. 5 mg extra as needed during the day., 0 Refills, Maintenance, 07/08/22 4:31:00 PM EST, Partial fill upon patient request if the prescription is for a schedule II opioid drug. Start Date: 07/08/22 Status: Ordered Medication Dispense Status: Completed Total Allowed Fills: 1 Fills Dispensed: 0 haloperidol 0.5 mg oral tablet 0.5 mg, 1, tablet, By Mouth, 2 times a day, # 60 tablet, Refills 0, Maintenance, 05/06/25 12:52:00 PM EST, Partial fill upon patient request if the prescription is for a schedule II opioid drug. Start Date: 05/06/25 Status: Ordered Medication Dispense Status: Completed Quantity: 60.0 Unit: tablet Total Allowed Fills: 1 Fills Dispensed: 0 KlonoPIN 0.5 mg oral tablet See Instructions, 1 tablet by mouth as needed for anxiety. 1 tablet by mouth at night., 0 Refills, Maintenance, 08/10/23 9:50:00 AM EST, Partial fill upon patient request if the prescription is for a schedule II opioid drug. Start Date: 08/10/23 Status: Ordered Medication Dispense Status: Completed Total Allowed Fills: 1 Fills Dispensed: 0 Lunesta = 3 mg, By Mouth, Daily at bedtime, PRN as needed for insomnia, 0 Refills, Maintenance, 07/08/22 4:33:00 PM EST, Partial fill upon patient request if the prescription is for a schedule II opioid drug. Start Date: 07/08/22 Status: Ordered Medication Dispense Status: Completed Total Allowed Fills: 1 Fills Dispensed: 0 montelukast 10 mg oral tablet 1, tablet, By Mouth, Daily in PM, # 90 tablet, Refills 1, Tot. Refills 1, Maintenance, 03/19/25 5:13:00 AM EDT, Route to Pharmacy Electronically, [facility] #[id number], 191, cm, 02/18/25 7:41:00 EDT, Height, 105.9, kg, 03/12/25 8:55:00 EDT, Dry Weight Start Date: 03/19/25 Status: Ordered Medication Dispense Status: Completed Quantity: 90.0 Unit: tablet Total Allowed Fills: 2 Fills Dispensed: 0 Nexium 20 mg oral enteric coated capsule 2 capsule = 40 mg, By Mouth, Daily at bedtime, # 30 capsule, 0 Refills, Maintenance, 05/24/11 12:56:34 AM EST, EC Capsule Start Date: 05/24/11 Status: Ordered Medication Dispense Status: Completed Quantity: 30.0 Unit: capsule Total Allowed Fills: 1 Fills Dispensed: 0 physical therapy physical therapy, See Instructions, # 1 each, Refills 0, Tot. Refills 0, Maintenance, evaluate and treat for bilateral shoulder pain, 03/27/25 10:30:00 AM EDT, Supply Start Date: 03/27/25 Status: Ordered Medication Dispense Status: Completed Quantity: 1.0 Unit: each Total Allowed Fills: 1 Fills Dispensed: 0 Indications: Pain in right shoulder; Sildenafil = 100 mg, By Mouth, prn, 0 Refills, Maintenance, 01/13/22 8:38:00 AM EDT, Partial fill upon patient request if the prescription is for a schedule II opioid drug. Start Date: 01/13/22 Status: Ordered Medication Dispense Status: Completed Total Allowed Fills: 1 Fills Dispensed: 0 Mental Status Mental Status Assessment Assessment Assessment Component Result Effecti ve Date Patient Health Questionnaire 2 item (PHQ-2) total score [Reported] 0 05/22/25 Problem List Condition Confirmation Course Effective Dates Status H ealth Status Informant Acne Confirmed Active At risk for sexually transmitted disease due to partner with genital herpes Confirmed Active Benign hypertension Confirmed Active Bipolar affective disorder, current episode depressed 1 Confirmed Active Borderline personality disorder Confirmed Active Chronic kidney disease (CKD), stage III (moderate) Confirmed Active Glucose intolerance Confirmed Active Eczema 2 Confirmed Active Gastroesophageal reflux disease 3 Confirmed Active Gout Confirmed Active Moderate persistent asthma Confirmed Active Obese class I Confirmed Active OCD (obsessive compulsive disorder) Confirmed Active Shoulder pain, bilateral Confirmed Active Testicular mass Confirmed Active Abnormal thyroid function test 4 Confirmed Active Tobacco dependence Confirmed Active History of unprotected sex Confirmed Active Vasovagal near syncope Confirmed Active 1Dr. Lazaro Thorpe in [facility]. 2Dr. Mojgan Castellanos [facility] 3Dr. Candace [facility] 4Secondary to lithium. Patient is followed by endocrinology, Dr. Avalos Vital Signs Most recent to oldest [Reference Range]: 1 2 Height 191.0 cm (05/22/25 1:44 PM) 191.0 cm (05/22/25 10:12 AM) Weight 112.2 kg (05/22/25 1:44 PM) 112.2 kg (05/22/25 10:12 AM) Oxygen Saturation [94-100 %] 97 % (05/22/25 10:12 AM) Pulse Rate [55-90 bpm] 96 bpm *H* (05/22/25 10:12 AM) Body Mass Index [18.5-24.99 kg/m2] 30.76 kg/m2 *H* (05/22/25 10:12 AM) Blood Pressure [90-138/55-84 mm Hg] 122/ 77mm Hg (05/22/25 10:12 AM) Mode of Delivery (Oxygen) Room air (05/22/25 10:12 AM) Blood pressure sites Arm, left (05/22/25 10:12 AM) Weight Obtained Via Standing scale (05/22/25 10:12 AM) Social History Social History Type Response Tobacco Use: quit smoking a few days ago. Sex Sex Representation Male (finding) EKG study * Event Display: ECG 12-Lead Authored Date: Please click on pdf link to open report * Event Display: ECG 12-Lead Authored Date: Ventricular Rate: 91 BPM Atrial Rate: 91 BPM P-R Interval: 178 ms QRS Duration: 92 ms Q-T Interval: 362 ms QTC Calculation(Bazett): 445 ms P [place]: 55 degrees R [place]: 49 degrees T [place]: 50 degrees Normal sinus rhythm Nonspecific ST abnormality Abnormal ECG When compared with ECG of 18-Feb-2025 08:24, No significant change was found Confirmed by Kentrell Motley ([id number]) on 05/23/2025 6:59:44 AM Shepherd: Kentrell Motley Note * Stephanie Earl: PERFORM Event Display: Patient Education/Instruction Authored Date: [id number] Ambulatory Adult Visit Summary [facility] [place] Adult [address] [address] Name: DAMIEN MATTHEW : 1990?? Visit: 05/22/2025 10:04?? Ambulatory Visit Instructions ?? Your Care Team Primary Care Provider Kentrell Van MD? This Visit Provider Kentrell Van MD Your Diagnosis Palpitations Vitals Signs Pulse Rate:??96 bpm??High Height: 191 cm Systolic Blood Pressure: 122 mm Hg Weight: 112.2 kg Diastolic Blood Pressure: 77 mm Hg Body Mass Index:??30.76 kg/m2??High Oxygen Saturation: 97 % Body surface area: 2.44 What to do next Scheduled Follow-Up Appointments Tuesday2025 1:40 PM EST ?? Type: Return With: Pennie Juan MD Where: [facility] [address] [place] [address]- Status: Pending Tuesday2025 10:00 AM EST ?? Type: Return With: Austin Zhou MD Where: [facility] [address] [place] [address]- Status: Pending Follow-Up Appointments Follow Up with??Kentrell Vna MD ?? Where: Additional Information: As scheduled Future Orders Echo Complete, Routine, Reason: Shortness of Breath (R06.02), UEA As Needed, Once, *Est. 05/22/25 Holter Monitor 24 Hours, Routine, Reason: Palpitations R00.2, Once, *Est. 05/22/25 Treadmill Standard Stress, Routine, Reason: chest pain, unspecified R07.9, Once, *Est. 05/22/25 XR Chest 2 Views Frontal and Lat, Routine, Reason for Exam: Shortness of Breath, Patient Does Not Need Assistance, Once, *Est. 05/22/25 Medications The list below reflects the information in our records and provided by you today along with any changes made during this visit. Please continue your medications until treatment is completed or stopped by your provider. If this is different from the information you have or there are other questions,please contact the prescribing provider. What How Much When Why Instructions Changed Emtricitabine-Tenofovir (Descovy 200 mg-25 mg oral tablet) 1 tab(s) Oral Daily Special Instructions: ICD-10 ??Z29.81 Ordering Physician: Kentrell Van MD ?? Changed lumateperone (Caplyta 21 mg oral capsule) Unchanged Albuterol (Albuterol (Eqv-Proventil HFA) 90 mcg/ inh inhalation aerosol) 1 puff(s) Inhalation Every 4 hours as needed for NEEDED FOR WHEEZING DIRECTED 15 MINUTES BEFORE EXERCISE J 45 Ordering Physician: Pennie Juan MD Unchanged albuterol-budesonide (Airsupra 90 mcg-80 mcg/ inh inhalation aerosol) 2 inhalation Inhalation 4 times a day as needed for Wheezing/Shortness of Breath Special Instructions: j45.40, Do not exceed 12 puffs in 24 hours Ordering Physician: Pennie Juan MD ?? Unchanged Allopurinol (allopurinol 100 mg oral tablet) 1 tab(s) Oral Daily Ordering Physician: Muna Addison NP Unchanged Benztropine (benztropine 1 mg oral tablet) 0.5 tab(s) Daily Unchanged Clonazepam (KlonoPIN 0.5 mg oral tablet) See instructions Special Instructions: 1 tablet by mouth as needed for anxiety. ??1 tablet by mouth at night. ?? Unchanged Clonidine (cloNIDine 0.1 mg oral tablet) 1 tab(s) Oral Twice a day Ordering Physician: Kentrell Van MD Unchanged Divalproex Sodium (Depakote) See instructions Special Instructions: 250 mg in the morning, 1000 mg in the afternoon, 1000 mg at night. ?? Unchanged EPINEPHrine (EpiPen 2-Refugio 0.3 mg injectable kit) See instructions Special Instructions: Intramuscular Once Ordering Physician: Kentrell Van MD ?? Unchanged Esomeprazole (Nexium 20 mg oral enteric coated capsule) 2 capsule Oral Daily at Bedtime Unchanged Eszopiclone (Lunesta) 3 Milligram Oral Daily at Bedtime as needed for as needed for insomnia Unchanged Famotidine (famotidine 40 mg oral tablet) Unchanged Haloperidol See instructions Special Instructions: 10 mg in the morning, 5 mg at midday, 5 mg at dinnertime. ??5 mg extra as needed during the day., As needed for as needed for agitation ?? Unchanged Haloperidol (haloperidol 0.5 mg oral tablet) 1 tab(s) Oral Twice a day Unchanged Miscellaneous Rx (physical therapy) See instructions Shoulder pain, bilateral Special Instructions: evaluate and treat for bilateral shoulder pain Ordering Physician: Kentrell Van MD ?? Unchanged Montelukast (montelukast 10 mg oral tablet) 1 tab(s) Oral Daily in PM Ordering Physician: Kenterll Van MD Unchanged Multivitamin With Minerals (Centrum) 1 tab(s) Oral Daily at Bedtime Unchanged Sildenafil 100 Milligram Oral Special Instructions: prn ?? Unchanged Varenicline (chantix 1mg tablet) 1 tab(s) Oral Twice a day Medications and Immunizations Administered Medications Given During Visit No medications given during this visit.?? Allergies (NKA means No Known Allergies) Advair Diskus??throat closed up Bananas??tested with positive allergy Flonase??throat closed up Geodon??full body rash Nuts??anaphylactic [place]??anaphylactic Seroquel??full body rash Tegretol??rash full body Common Emergency Awareness Tips IS IT A STROKE? Act FAST and Check for these signs: FACE Does the face look uneven? ARM Does one arm drift down? SPEECH Does their speech sound strange? TIME Call at any sign of stroke ?? Heart Attack Signs Chest discomfort: Most heart attacks involve discomfort in the center of the chest and lasts more than a few minutes, or goes away and comes back. It can feel like uncomfortable pressure, squeezing, fullness or pain. Discomfort in upper body: Symptoms can include pain or discomfort in one or both arms, back, neck, jaw or stomach. Shortness of breath: With or without discomfort. Other signs: Breaking out in a cold sweat, nausea, or lightheaded. Remember, MINUTES DO MATTER. If you experience any of these heart attack warning signs, call to get immediate medical attention! ?? Smoking can increase your chances of developing chronic health problems and can cause harmful effects to other family members in your house. If you smoke, you are strongly encouraged to quit. Please call [employer] [facility] at [phone] or [phone] ([phone]) or log in to [email or web address] for referrals to smoking cessation programs. ?? The National Suicide Prevention Hotline is available 27/12 if you or someone you know needs to find a reason to keep living. By calling 7-287-374-[employer] (0227) you'll be connected to a skilled, trained counselor at a crisis center in your area. [facility] [employer] Portal You can view and manage your care through the patient portal or by using a health care nathalie of your choosing. [employer] is a website that allows you to securely view your medical information including your hospital discharge summary, office visit summaries, medications and follow-up visits. You can also request appointments, renew medications, and request access to your medical information using a health care nathalie of your choosing, or just ask a question. You can enroll at [email or web address] or register during your next office visit. [facility], in keeping with [facility] guidance, no longer requires face masks for staff, patientsor visitors in most situations. Similiar to time spent indoors at other locations, there is the chance that you were exposed to repiratory viruses during your time with us (such as flu or COVID-19). If you develop symptoms concerning for a viral respiratory infection, please seek testing (and treatment if indicated) from your medical provider or home test kit. ?? Disclaimer: The information provided is of a general nature and is intended to be used in conjunction with the recommendations and advice of your health care practitioner. Every effort has been made to ensure that the information provided is accurate and complete at the time it is provided to you however, as your needs change, or, as new information becomes available, different or additional instructions may be required. ?? If you have questions, please consult with your primary care provider or pharmacist, as appropriate. This information is not intended to serve as substitution for assessment and evaluation by a qualified health care provider. If you do not have a primary care provider, you may find a [facility] provider by calling [facility] at [phone]. Patient Care team information Care Team Personnel Name: Kentrell Van MD Position: [facility] Physician - Primary Care Member Role: PCP Address: [address] [place] [address] Telecom: Care Team Related Persons Name: FLORIDA MATTHEW Name: SERGIO WATTERS Insurance Providers Guarantor name: DAMIEN TIFF Health Plan Information #: 1 Payer: MEDICARE B Payer Identifier: Member Number: [id number] Group Number: [id number] Subscriber Identifier: [id number] Relationship to Subscriber: self Coverage Type: NA Coverage Verification Date: NA Telecom: NA Address: Health [facility] Information #: 2 Payer: [facility] Payer Identifier: NA Member Number: [id number] Group Number: [id number] Subscriber Identifier: [id number] Relationship to Subscriber: self Coverage Type: Medicare Other Coverage Verification Date: NA Telecom: NA Address: Health [facility] Information #: 3 Payer: [employer] Payer Identifier: Member Number: [id number] Group Number: [id number] Subscriber Identifier: [id number] Relationship to Subscriber: self Coverage Type: MEDICAID Coverage Verification Date: NA Telecom: NA Address:
--- NOTE | ~2025-06-04 | XR_ITS ---
EXAMINATION: XR CHEST CLINICAL INFORMATION: SOB COMPARISON: None available. TECHNIQUE: 2 views of the chest were obtained. FINDINGS: The cardiac, hilar, and mediastinal contours are normal. The lungs are clear bilaterally. There is no pneumothorax or pleural effusion. There is no focal osseous or soft tissue abnormality. XR/XR chest 2V IMPRESSION: Normal chest. Electronically signed by: Martinez Giang MD 06/04/2025 09:42 AM [facility]
[2025-06-04 10:31] LABS: MANUAL DIFF FLAG NO
[2025-06-04 10:45] LABS: Hematocrit 35.9 % (42.0-52.0); Hemoglobin 12.6 g/dl (14.0-18.0); Imm Gran Abs Auto 0.03 X10*3/uL (0.00-0.03); Imm Gran Pct Auto 0.5 % (0.0-0.4); Lymphocytes Absolute Auto 2.0 X10*3/uL (1.2-4.9); Mean Corpuscular HGB Conc 35.1 g/dl (31.0-36.0); Mean Corpuscular Hemoglobin 36.0 pg (27.0-33.0); Mean Corpuscular Volume 102.6 fL (80.0-98.0); NRBC Abs Auto 0.000 X10*3/uL (0.0-0.012); NRBC Pct Auto 0.0 /100WBC (0.0-0.2); Platelet Count 130 X10*3/uL (160-400); Red Blood Count 3.50 X10*6/uL (4.60-5.80); White Blood Count 5.5 X10*3/uL (4.8-10.8)
--- OUTSIDE RECORDS SUMMARY | 2025-06-04 10:54 | XMS_ITS | Encounter Summary ---
Author Organization [facility] Address [address] [place] [address] Phone Care Team Providers Care Fork Assembler Name Role Phone Kentrell Van MD Primary Care Provider [phone] Encounter Details Date Type Department Care Team (Late st Contact Info) Description 10/10/2023 Documentation Only [facility] [address] [place] [address] Gita Burnett [address] [place] [phone] Social History Tobacco Use Types Packs/Day [...] Visit [facility] [place] [address] Jake FREITAS [address] [place] [phone] Chon Banks MD [address] [place] [address] [place] [address] documented as of this encounter Visit Diagnoses Not on filedocumented in this encounter Care Teams Fork Assembler Relationship Specialty Start Date End Date Kentrell Van MD [place] TYPE ROLLING MACHINE OPERATOR [address] [place] [address] [address] [place], [place] PCP - General Internal Medicine 12/27/22 documented as of this encounter
--- OUTSIDE RECORDS SUMMARY | 2025-06-04 10:54 | XMS_ITS | Encounter Summary ---
Author Organization [facility] [place], Address [address] [place] [address] Phone Care Team Providers Care Raisin Washer Name Role Phone Kentrell Van MD Primary Care Provider [phone] Encounter Details Date Type Department Care Team (Late st Contact Info) Description 04/15/2023 Documentation Only [facility] Dr Jake [address] [place] [phone] Chon Banks MD [address] [place] [address] [place] [phone] Social History Tobacco Use Types Packs/Day Years [...] Visit [facility] Dr Jake [address] [place] [phone] Chon Banks MD [address] [place] [address] [place] [address] documented as of this encounter Visit Diagnoses Not on filedocumented in this encounter Care Teams Raisin Washer Relationship Specialty Start Date End Date Kentrell Van MD MCLOUD CABINET MAKER [address] [place] [address] [address] [place] PCP - General Internal Medicine 12/27/22 documented as of this encounter
--- OUTSIDE RECORDS SUMMARY | 2025-06-04 10:54 | XMS_ITS | Encounter Summary ---
Author Organization [facility] Address [address] [facility] [place] [address] [place] [address] Phone Care Team Providers Care Activities Manager Name Role Phone Kentrell Van MD Primary Care Provider jT Membreno MD Unavailable Unavai emmanuelle Encounter Details Date Type Department Care Team (Latest Contact Info) Description 01/13/2023 Transcribe Orders Virtual Department 30 [place] [address] Chon Banks MD 15 [facility] [address] [place] [address] [email or web address] Stage 3a chronic kidney disease (CKD) (Primary [...] Primary documented in this encounter Care Teams Activities Manager Relationship Specialty Start Date End Date Kentrell Van MD [address] [place] [address] PCP - General Internal Medicine 10/13/17 Tj Membreno MD 06/09/17 documented as of this encounter Additional Source Comments The information contained in this document represents components of the legal health record. It is not the complete legal health record.[facility]
--- OUTSIDE RECORDS SUMMARY | 2025-06-04 10:54 | XMS_ITS | Encounter Summary ---
Author Organization [facility] Address [address] [facility] [address] [place] [address] Phone Care Team Providers Care Assembly Line Supervisor Name Role Phone Kentrell Van MD Primary Care Provider [phone] Tj Membreno MD Unavailable Yesenia handley Encounter Details Date Type Department Care Team (Late st Contact Info) Description 11/07/2023 Procedure Pass OR Admitting Dept - Virtual Department 30 [place] [address] Social History Tobacco Use Types Packs/Day Years [...] on filedocumented in this encounter Care Teams Assembly Line Supervisor Relationship Specialty Start Date End Date Mikana, Kentrell Venkata, MD [address] [place] [address] PCP - General Internal Medicine 10/13/17 Tj Membreno MD 06/09/17 documented as of this encounter Additional Source Comments The information contained in this document represents components of the legal health record. It is not the complete legal health record.[facility]
--- OUTSIDE RECORDS SUMMARY | 2025-06-04 10:54 | XMS_ITS | Clinical Summary ---
Author Organization [facility] Address [address] [address] Phone Care Team Providers Care Diesel Powerplant Supervisor Name Role Phone Kentrell Van MD Primary Care Provider [phone] Allergies Active Allergy Reactions Criticality Noted Date Comments Banana 04/15/2023 Other reaction(s): tested with positive allergy Carbamazepine Rash Low 04/15/2023 Codeine Rash Low 04/15/2023 Fluticasone Anaphylaxis High 04/15/2023 Fluticasone-Salmeterol Anaphylaxis High 04/15/2023 Ibuprofen Other (see comments) 11/22/2023 Elevates [facility] [place] level Latex Other (see comments) 04/15/2023 Albin Pulp Anaphylaxis High 11/22/2023 Quetiapine Rash Low [...] kit, 1 Refills, Soft Stop, 04/14/22 10:51:00 [id number], 190, cm, 01/12/22 15:25:00 EDT, Height, 113.64, [...] day in the evening 3 Active Multiple Vitamins-[place] als (CENTRUM ADULT PO) Take by mouth Active Van Orin-3 Fatty Acids (FISH OIL PO) Take by [...] chronic kidney disease 10/08/2024 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 [place] adverse reaction 01/11/2023 Essential (primary) hypertension 01/11/2023 Resolved Problems Problem Noted Date Diagnosed Date Resolved Date Stage 3a chronic kidney disease 01/11/2023 10/08/2024 Encounters Date Type Department Care Team Description 05/24/2025 Documentation Only [facility] [address] [place] [address] Gita Burnett 05/22/2025 Documentation Only [facility] [address] [place] [address] Gita Burnett 04/08/2025 2:30 PM EST Office Visit [facility] Dr Jake [address] FREITAS [address] [place] [phone] Chon Banks MD Stage 3b chronic kidney disease (HCC) (Primary Dx); [facility] [place] adverse reaction <Sequela> 04/08/2025 Documentation Only [facility] [address] [place] [address] Alejandra Carranza from Last 3 Months Immunizations [...] Visit [facility] [place] [phone] Chon Banks MD [address] [place] [phone] Health Maintenance Due Date Last Done Comments Hepatitis B Vaccine (3 of 3 - 3-dose series) 08/31/2000 06/15/2000, 05/11/2000 Pneumococcal Vaccine: Peds ( 0 to 5 Years) and At-Risk Patients (6 to 49 Years) (2 of 2 - PCV) 01/11/2018 01/11/2017 Influenza Vaccine (#1) 2025 2, 02/20/2021, 04/07/2020, Additional history exists Insurance Medicare [facility] Medicaid [place] Care Teams Diesel Powerplant Supervisor Relationship Specialty Start Date End Date Kentrell Van MD [place] PROPOSAL WRITER [address] [place] [address] PCP - General Internal Medicine 12/27/22
--- OUTSIDE RECORDS SUMMARY | 2025-06-04 10:54 | XMS_ITS | Encounter Summary ---
Author Organization [facility] [place], Address [address] [place] [address] Phone Care Team Providers Care Social Media Strategist Name Role Phone Kentrell Van MD Primary Care Provider [phone] Encounter Details Date Type Department Care Team (Late st Contact Info) Description 04/15/2023 Documentation Only [facility] Dr Jake [address] [place] [phone] Chon Banks MD [address] [place] [address] [place] [phone] Social History Tobacco Use Types Packs/Day Years [...] Visit [facility] Dr Jake F[address] [place] [phone] Chon Banks MD [address] [place] [address] [place] [address] documented as of this encounter Visit Diagnoses Not on filedocumented in this encounter Care Teams Social Media Strategist Relationship Specialty Start Date End Date Kentrell Van MD [place] AGITATOR OPERATOR [address] [place] [address] [address] [place] PCP - General Internal Medicine 12/27/22 documented as of this encounter
--- OUTSIDE RECORDS SUMMARY | 2025-06-04 10:54 | XMS_ITS | Encounter Summary ---
Author Organization [facility] Address [address] [facility] [address] [place] [address] Phone Care Team Providers Care Boiler Operators Supervisor Name Role Phone Kentrell Van MD Primary Care Provider [phone] Tj Membreno MD Unavailable Unavai lable Encounter Details Date Type Department Care Team (Late st Contact Info) Description 09/22/2023 Prep for Surgery [facility] [address] [place] [address] Kelle Gilmore MD 15 [facility], 2nd [place] [address] [email or web address] Social History Tobacco Use Types Packs/Day Years [...] on filedocumented in this encounter Care Teams Boiler Operators Supervisor Relationship Specialty Start Date End Date Kentrell Van MD [address] [place] [address] PCP - General Internal Medicine 10/13/17 Tj Membreno MD 06/09/17 documented as of this encounter Additional Source Comments The information contained in this document represents components of the legal health record. It is not the complete legal health record.[facility]
--- OUTSIDE RECORDS SUMMARY | 2025-06-04 10:54 | XMS_ITS | Encounter Summary ---
Author Organization [facility] Address [address] [place] [address] Phone Care Team Providers Care Switchboard Troubleshooter Name Role Phone Kentrell Van MD Primary Care Provider [phone] Encounter Details Date Type Department Care Team (Late st Contact Info) Description 05/22/2025 Documentation Only [facility] [address] [place] [address] Gita Burnett [address] [place] [address] Social History Tobacco Use Types [...] Visit [facility] [place] Dr Jake FREITAS [address] [place] [phone] Chon Banks MD [address] [place] [address] [place] [address] documented as of this encounter Visit Diagnoses Not on filedocumented in this encounter Care Teams Switchboard Troubleshooter Relationship Specialty Start Date End Date Kentrell Van MD [place] REGISTERED CLIENT ASSOCIATE [address] [place] [address] [address] [place], [place] PCP - General Internal Medicine 12/27/22 documented as of this encounter
--- OUTSIDE RECORDS SUMMARY | 2025-06-04 10:54 | XMS_ITS | Patient Health Record ---
Author Organization [facility] Address [address] [facility] [address] Care Team Providers Care South Asian History Professor Name Role Phone Carlota ROJO, Kentrell Primary Care Provider Deja Hernandez [phone] Reason For Referral No Information Encounters Encounter Location Date Provider Diagnosis [facility] [address] [place] [address] 06/18/2024 Deja Hernandez [address] [address] 07/03/2024 Deja Hernandez Plan Of Treatment No Information Insurance Providers Payer Name Payer Address Payer Phone Subscriber Number Group Number Insured Name Patient Relationship to Insured Coverage Start Date Coverage End Date Medicare [facility] [address] [place] [address] [id number] Garrick Jeter Self - patient is the insured [facility] [address] [place] [address] [id number] Garrick Jeter Self - patient is the insured
--- OUTSIDE RECORDS SUMMARY | 2025-06-04 10:54 | XMS_ITS | Encounter Summary ---
Author Organization [facility] [place], Address [address] [place] [address] Phone Care Team Providers Care Machine Setter Name Role Phone Kentrell Van MD Primary Care Provider [phone] Encounter Details Date Type Department Care Team (Late st Contact Info) Description 10/08/2024 Documentation Only [facility] [address] [place] [address] Alejandra Carranza [address] [place] [phone] Social History Tobacco Use Types Packs/Day Years [...] Visit [facility] Jake FREITAS [address] [place] [phone] Chon Banks MD [address] [place] [address] [place] [address] documented as of this encounter Visit Diagnoses Not on filedocumented in this encounter Care Teams Machine Setter Relationship Specialty Start Date End Date Kentrell Van MD [place] RETENTION SPECIALIST [address] [place] [address] [address] [place], [place] PCP - General Internal Medicine 12/27/22 documented as of this encounter
--- OUTSIDE RECORDS SUMMARY | 2025-06-04 10:54 | XMS_ITS | Encounter Summary ---
Author Organization [facility] Address [address] [place] [address] Phone Care Team Providers Care Transliterator Name Role Phone Kentrell Van MD Primary Care Provider [phone] Encounter Details Date Type Department Care Team (Late st Contact Info) Description 05/24/2025 Documentation Only [facility] [address] [place] [address] Gita Burnett [address] [place] [address] Social History Tobacco Use Types [...] Visit [facility] [place] [address] Jake FREITAS [address] [place] [phone] Chon Banks MD [address] [place] [address] [place] [address] documented as of this encounter Visit Diagnoses Not on filedocumented in this encounter Care Teams Transliterator Relationship Specialty Start Date End Date Kentrell Van MD CONSTANTINE CUSTOMER COUNTER ASSOCIATE [address] [place] [address] [address] [place], [place] PCP - General Internal Medicine 12/27/22 documented as of this encounter
--- OUTSIDE RECORDS SUMMARY | 2025-06-04 10:54 | XMS_ITS | Encounter Summary ---
Author Organization [facility] [place], Address [address] [place] [address] Phone Care Team Providers Care Compliance Spec Name Role Phone Kentrell Van MD Primary Care Provider Encounter Details Date Type Department Care Team (Late st Contact Info) Description 04/08/2025 Documentation Only [facility] [address] [place] [address] Alejandra Carranza [address] [place] [phone] Social History Tobacco Use Types Packs/Day Years [...] Visit [facility] Jake FREITAS [address] [place] [phone] Chon Banks MD [address] [place] [address] [place] [address] documented as of this encounter Visit Diagnoses Not on filedocumented in this encounter Care Teams Compliance Spec Relationship Specialty Start Date End Date Kentrell Van MD [employer] SHOP SUPERVISOR [address] [place] [address] [address] [place], [place] PCP - General Internal Medicine 12/27/22 documented as of this encounter
--- OUTSIDE RECORDS SUMMARY | 2025-06-04 10:54 | XMS_ITS | Encounter Summary ---
Author Organization [facility] Address [address] [place] [address] Phone Care Team Providers Care Senior Reservoir Engineer Name Role Phone Kentrell Van MD Primary Care Provider [phone] Encounter Details Date Type Department Care Team (Late st Contact Info) Description 10/01/2024 Documentation Only [facility] [address] [place] [address] Gita Burnett [address] [place] [address] Social History Tobacco Use Types [...] Visit [facility] [place] Dr Jake FREITAS [address] [place] [phone] Chon Banks MD [address] [place] [address] [place] [address] documented as of this encounter Visit Diagnoses Not on filedocumented in this encounter Care Teams Senior Reservoir Engineer Relationship Specialty Start Date End Date Kentrell Van MD [place] HAND BRUSH FILLER [address] [place] [address] [address] [place], [place] PCP - General Internal Medicine 12/27/22 documented as of this encounter
--- OUTSIDE RECORDS SUMMARY | 2025-06-04 10:54 | XMS_ITS | Clinical Summary ---
Author Organization [facility] Address [address] [address] Phone Care Team Providers Care Grant Administrator Name Role Phone Kentrell Van MD Primary Care Provider Tj Membreno MD Unavailable Unavai lable Allergies Active Allergy Reactions Criticality Noted Date Comments Banana 04/15/2023 Other reaction(s): tested with positive allergy Fluticasone 10/13/2017 Fluticasone Propion-Salmeterol 11/22/2023 Other Reaction(s): throat closed up Ziprasidone Hcl 10/13/2017 Ibuprofen Other (See Comments) 11/22/2023 Elevates [place] level Nut Flavor Anaphylaxis High 11/22/2023 [place] Anaphylaxis High 11/22/2023 Quetiapine 10/13/2017 Carbamazepine 10/13/2017 [...] EDT) TSH 0.91 0.27 - 4.20 uIU/mL [facility] Blood 09/19/2023 10:1 6 AM EDT 09/19/2023 10:20 AM EDT us Yelitza Meyers MD LAB BLOOD BKR ORDE RABCRISTOPHER Final Result [address] [address] * [place] level (09/19/2023 10:16 AM EDT) LITHIUM 0.55 0.5 - 1.00 mmol/L [facility] Blood 09/19/2023 10:1 6 AM EDT 09/19/2023 10:20 AM EDT us Yelitza Meyers MD LAB BLOOD BKR ORDE RABLES Final Result Performing Organization Address City/[facility]/ZIP Co de Phone Number [address] [address] * Valproic acid (09/19/2023 10:16 AM EDT) VALPROIC ACID 62.7 50.0 - 100.0 ug/mL [facility] Blood 09/19/2023 10:1 6 AM EDT 09/19/2023 10:20 AM EDT us Yelitza Meyers MD LAB BLOOD BKR [place] MARKUS Final Result [address] [address] * (ABNORMAL) Comprehensive metabolic panel (04/17/2019 8:45 AM EST) Pathologist [facility] [place] SODIUM 140 133 - 146 mmol/L [facility] POTASSIUM 4.5 3.3 - 5.1 mmol/L [facility] CHLORIDE 102 96 - 108 mmol/L [facility] CO2 25 21 - 35 mmol/L [facility] BUN 16 6 - 19 mg/dL [facility] CREATININE 1.00 0.5 - 1.5 mg/dL [facility] GLUCOSE 105(H) 70 - 99 mg/dL [facility] ALBUMIN 4.4 3.9 - 4.8 g/dL [facility] TOTAL PROTEIN 7.8 6.5 - 8.0 g/dL [facility] CALCIUM 10.2 8.4 - 10.3 mg/dL [facility] ALKALINE PHOSPHATASE 111 39 - 117 U/L [facility] TOTAL BILIRUBIN 0.4 0.0 - 1.2 mg/dL [facility] AST 19 0 - 37 U/L [facility] ALT 16 0 - 40 U/L [facility] GLOBULIN 3.4 1 - 4.8 g/dL [facility] EGFR 101 >59 mL/min/1.7 3m2 [facility] Comment:If patient is black, multiply result by 1.159. Estimated glomerular filtration rate calculated using the CKD-EPI equation. ANION GAP 18 10 - 20 mmol/L [facility] Blood 04/17/2019 8:45 AM EST 04/17/2019 8:47 AM EST us Marcy Benitez CNP LAB BLOOD BKR ORDERABLES F inal Result Performing Organization Address City/[facility]/ZIP Co de Phone Number [address] [address] * (ABNORMAL) CBC and differential (04/17/2019 8:45 AM EST) WBC 9.73 3.40 - 11.20 K/uL [facility] RBC 4.88 4.50 - 5.50 M/uL [facility] HGB 16.2 13.0 - 17.0 g/dL [facility] HCT 48.0 40.0 - 51.0 % [facility] PLT 222 130 - 400 K/uL [facility] MCV 98.4(H) 79.0 - 98.0 fL [facility] MCH 33.2 27.0 - 34.8 pg [facility] MCHC 33.8 31.5 - 36.0 g/dL [facility] RDW 12.5 10.8 - 14.6 % [facility] MPV 9.8 9.4 - 12.4 fl [facility] NRBC 0.00 0.00 /100 WBCs [facility] ABSOLUTE NRBC 0.00 0.00 K/uL [facility] DIFF METHOD Auto [facility] NEUTS 67.7 45.30 - 77.70 % [facility] LYMPHS 23.2 12.30 - 39.70 % [facility] MONOS 6.4 4.10 - 12.80 % [facility] EOS 2.1 0 - 7.2 % [facility] BASOS 0.3 0 - 2.80 % [facility] Granulocytes, immature (%) 0.3 0.0 - 0.9 % [facility] ABSOLUTE NEUTS 6.59 1.40 - 7.70 K/uL [facility] ABSOLUTE LYMPHS 2.26 0.60 - 3.20 K/uL [facility] ABSOLUTE MONOS 0.62(H) 0.11 - 0.59 K/uL [facility] ABSOLUTE EOS 0.20 0.01 - 0.50 K/uL [facility] ABSOLUTE BASOS 0.03 0.00 - 0.08 K/uL [facility] Granulocytes, immature 0.03 0.00 - 0.05 K/uL [facility] Blood 04/17/2019 8:45 AM EST 04/17/2019 8:47 AM EST us Marcy Benitez JIGGER MACHINE OPERATOR LAB BLOOD BKR ORDERABLES F inal Result [facility] [address] [place] [address] from Last 3 Months or Most Recently Relevant to Health Maintenance Insurance [facility] MEDICARE PART A & B [facility] MEDICARE PART A & B [facility] Member Subscriber Plan / Payer (Ef fective 1993-Present) Name:Garrick Matthew Relation to Subscriber:Child Name:FLORIDA MATTHEW Date of :2001 (Home) Address: [address] [place] [address] Payer ID:[id number] (NAIC) Group ID:[id number] Type:PPO [id number] B [facility] Member Subscriber Plan / Payer (Ef fective 1993-Present) Name:Garrick Matthew Relation to Subscriber:Child Name:FLORIDA MATTHEW Date of :2001 (Home) Address: [address] [place] [address] Payer ID:[id number] (NAIC) Group ID:[id number] Type:PPO Address[id number] B [facility] MEDICARE PART A & B [facility] MEDICARE PART A & B [facility] MEDICARE PART A & B [facility] [address] [place], [place] [address]HEALTH MEDICARE PART A & B [facility] Member Subscriber Plan / Payer (Ef fective 1993-Present) Name:Garrick Matthew Relation to Subscriber:Child Name:FLORIDA MATTHEW Date of :2001 (Home) Address: [address] [place] [place] [address] Payer ID:[id number] (NAIC) Group ID:[id number] Type:PPO Address[address] Advance Directives For more information, please contact: [phone] (9AM - 5PM [facility], Tuesday-Tuesday) Documents on File Type Date Recorded Patient Hogshead Stripper Expl anation Healthcare Proxy 11/09/2023 1:07 PM Legal Guardianship 11/09/2023 1:07 PM Jimmy ed * Full Code (Latest Code Status on File) Date Activated Date Inactivated Comments 11/07/2023 7:32 AM Question Answer Comments Code Status Confirmed With: Patient Care Teams Grant Administrator Relationship Specialty Start Date End Date Kentrell Van MD [address] [place] [address] [place] [address] PCP - General Internal Medicine 10/13/17 Tj Membreno MD 06/09/17 Additional Source Comments The information contained in this document represents components of the legal health record. It is not the complete legal health record.[facility]
--- OUTSIDE RECORDS SUMMARY | 2025-06-04 10:55 | XMS_ITS | Clinical Summary ---
Author Organization [facility] Address [address] [place] [address] Care Team Providers Care Contact Center Team Lead Name Role Phone Kentrell Van MD Primary Care Provider [phone] Allergies Active Allergy Reactions Criticality Noted Date Comments Banana Other (See Comments) Low 11/30/2024 Carbamazepine Other (See Comments),Rash/Dermat itis Low 10/13/2017 Codeine Rash/Dermatitis Low 04/15/2023 Fluticasone Anaphylaxis,Other (See Comments) High 10/13/2017 Fluticasone-Salmeterol Anaphylaxis,Other (See Comments) High 04/15/2023 Other Reaction(s): throat closed up Ibuprofen Other (See Comments) Low 11/22/2023 Elevates [place] level Latex Other (See Comments) Low 04/15/2023 [...] Description 04/10/2025 3:30 PM EST Office Visit [address] [address] Norma Rosario MD Nausea and [...] drink = 0.6 oz pur e alcohol) [facility] Utilities Answer Date Recorded In the past [...] any time in the past 12 m [facility], were you homeless or living in a fci (including now)? No 05/02/2024 Sex and Gender [...] 08/12/2025 2:00 PM EDT Office Visit [facility] [address] [place] [address] Norma Rosario MD [address] [place] [address] [id number] Health Maintenance Due Date Last Done Comments [...] Detected <30 copies/m L 05/09/2024 12:40 PM [facility] HIV-1 RNA (log10) Not Detected <1.46 log copies/m L 05/09/2024 12:40 PM [facility] Interpretation Not Detected 05/09/20 12:40 PM [facility] Comment:Performed by FDA nathalie roved [facility] Aptima TMA. Linear range is 30 to 10,000,000 copies/mL. HIV Genotyping is not recommended for viral loads below 2,000 copies/mL. Not FDA approved to diagnose HIV infection. Blood Plasma specimen / Unknown 05/02/2024 11:20 AM EST 05/02/2024 11:46 AM EST us Erick Alva MD LAB BLOOD ORDERABLES Final R esult [facility] [address] [place] [address], from Last 3 Months or Most Recently Relevant to Health Maintenance Insurance MEDICARE PART A & B [facility] MEDICARE PART A & B [facility] [employer] Advance Directives Documents on File Type Date Recorded Patient Craps Manager Expl anation Power of Customer Service Engineer-Scan 11/30/2024 [facility]- POWER OF ATTOR MONSE - APPT ON 11/30/[address] NORMA ROSARIO * Full Code (Latest Code Status on File) Date Activated Date Inactivated Comments 05/02/2024 12:44 AM Healthcare Agents on File Name Relationship Healthcare Agent Relationshi p Communication Javier Matthew Plenary guardian 3. Plenary Guardian Care Teams Contact Center Team Lead Relationship Specialty Start Date End Date Kentrell Van MD [address] [place] [address] PCP - General Internal Medicine 10/22/24
--- OUTSIDE RECORDS SUMMARY | 2025-06-04 10:55 | XMS_ITS | Encounter Summary ---
Author Organization [facility] Address [address] [facility] [address] [place] [address] Phone Care Team Providers Care Content Strategy Lead Name Role Phone Kentrell Van MD Primary Care Provider [phone] Tj Membreno MD Unavailable Yesenia handley Encounter Details Date Type Department Care Team (Latest Contact Info) Description 04/17/2019 Transcribe Orders [facility] Phleb Lisette [address] [facility] 2nd [place] [address] Marcy Benitez, COMPUTER SYSTEMS HARDWARE ANALYST [address] [place] [address] [email or web address] Gastroesophageal reflux disease, esophagitis presence not specified [...] EST) SODIUM 140 133 - 146 mmol/L [facility] POTASSIUM 4.5 3.3 - 5.1 mmol/L [facility] CHLORIDE 102 96 - 108 mmol/L [facility] CO2 25 21 - 35 mmol/L [facility] BUN 16 6 - 19 mg/dL [facility] CREATININE 1.00 0.5 - 1.5 mg/dL [facility] GLUCOSE 105(H) 70 - 99 mg/dL [facility] ALBUMIN 4.4 3.9 - 4.8 g/dL [facility] TOTAL PROTEIN 7.8 6.5 - 8.0 g/dL [facility] CALCIUM 10.2 8.4 - 10.3 mg/dL [facility] ALKALINE PHOSPHATASE 111 39 - 117 U/L [facility] TOTAL BILIRUBIN 0.4 0.0 - 1.2 mg/dL [facility] AST 19 0 - 37 U/L [facility] ALT 16 0 - 40 U/L [facility] GLOBULIN 3.4 1 - 4.8 g/dL [facility] EGFR 101 >59 mL/min/1.7 3m2 [facility] Comment:If patient is black, multiply result by 1.159. Estimated glomerular filtration rate calculated using the CKD-EPI equation. ANION GAP 18 10 - 20 mmol/L [facility] Blood 04/17/2019 8:45 AM EST 04/17/2019 8:47 AM EST Marcyflorentino Jonesjose Benitez [facility] LAB BLOOD BKR ORDERABLES F inal Result [address] [id number] * (ABNORMAL) CBC and differential (04/17/2019 8:45 AM EST) WBC 9.73 3.40 - 11.20 K/uL [facility] RBC 4.88 4.50 - 5.50 M/uL [facility] HGB 16.2 13.0 - 17.0 g/dL [facility] HCT 48.0 40.0 - 51.0 % [facility] PLT 222 130 - 400 K/uL [facility] MCV 98.4(H) 79.0 - 98.0 fL [facility] MCH 33.2 27.0 - 34.8 pg [facility] MCHC 33.8 31.5 - 36.0 g/dL [facility] RDW 12.5 10.8 - 14.6 % [facility] MPV 9.8 9.4 - 12.4 fl [facility] NRBC 0.00 0.00 /100 WBCs [facility] ABSOLUTE NRBC 0.00 0.00 K/uL [facility] DIFF METHOD Auto [facility] NEUTS 67.7 45.30 - 77.70 % [facility] LYMPHS 23.2 12.30 - 39.70 % [facility] MONOS 6.4 4.10 - 12.80 % [facility] EOS 2.1 0 - 7.2 % [facility] BASOS 0.3 0 - 2.80 % [facility] Granulocytes, immature (%) 0.3 0.0 - 0.9 % [facility] ABSOLUTE NEUTS 6.59 1.40 - 7.70 K/uL [facility] ABSOLUTE LYMPHS 2.26 0.60 - 3.20 K/uL [facility] ABSOLUTE MONOS 0.62(H) 0.11 - 0.59 K/uL [facility] ABSOLUTE EOS 0.20 0.01 - 0.50 K/uL [facility] ABSOLUTE BASOS 0.03 0.00 - 0.08 K/uL [facility] Granulocytes, immature 0.03 0.00 - 0.05 K/uL [facility] Blood 04/17/2019 8:45 AM EST 04/17/2019 8:47 AM EST Marcy Benitez [facility] LAB BLOOD BKR ORDERABLES F inal Result [facility] [address] [place], [place] [id number] documented in this encounter Visit Diagnoses Diagnosis Gastroesophageal reflux disease, esophagitis presence not specified- Primary Liver dysfunction Unspecified disorder of liver documented in this encounter Care Teams Content Strategy Lead Relationship Specialty Start Date End Date Kentrell Van MD [address] [place] [address] [place] [address] [id number] PCP - General Internal Medicine 10/13/17 Tj Membreno MD 06/09/17 documented as of this encounter Additional Source Comments The information contained in this document represents components of the legal health record. It is not the complete legal health record.[facility]
[2025-06-04 10:56] LABS: D Dimer High Sensitivity < 150 NG/ML
[2025-06-04 11:59] LABS: Alanine Aminotransferase 16 U/L (0-40); Albumin Level 4.5 g/dL (3.5-5.0); Alkaline Phosphatase 80 U/L (39-117); Anion Gap 15 (12-20); Aspartate Amino Transferase 16 U/L (5-37); Blood Urea Nitrogen 32 mg/dL (9-16); Calcium 9.4 mg/dL (8.4-10.2); Carbon Dioxide 26 mmol/L (22-29); Chloride 106 mmol/L (96-108); Estimated Glomerular Filt Rate 27; Potassium 4.5 mmol/L (3.3-5.1); Sodium 142 mmol/L (135-145); Total Protein 7.6 g/dL (6.5-8.0)
[2025-06-04 12:03] LABS: NT Pro B Type Natriuretic Pept 44.7 pg/mL (<300); Troponin-I High Sensitivity 18.1 ng/L (<3.5-35.0)
== END 2025-06-04 08:53 | disposition home or self-care (01) ==
LOC: HO.HMGCX 08:52
PROVIDERS: PCP Internal Medicine; Visit Provider Internal Medicine
DX: R00.2 Palpitations (principal); R06.02 Shortness of breath
CPT/HCPCS: 36415; 71046; 80053; 83880; 84443; 84484; 85025; 85379

== ENCOUNTER → 2025-06-04 09:27 | Outpatient (BNV) | payer MEDICARE, BC, MEDICAID, SELFPAY | PROVIDERS: PCP Internal Medicine; Visit Provider Radiology Diagnostic Radiology | DX: R06.02 Shortness of breath (principal) | CPT/HCPCS: 71046 ==